=== PATIENT | male | born 1930 | race Caucasian/White ===

== ENCOUNTER → 2018-01-18 | Outpatient (CLI) | payer MEDICARE, BC ==
--- NOTE | 2018-01-18 14:14 | US ---
EXAMINATION TYPE: US extremity nonvasculr ltd RT DATE OF EXAM: 01/18/2018 COMPARISON: NONE CLINICAL HISTORY: Mass right hand R22.31. 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 Recommend vascular consult. IMPRESSION: 1. 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
== END | disposition home or self-care (01) ==
LOC: RADUSWWP 13:53
PROVIDERS: ATTEND Orthopaedic Surgery Hand Surgery
DX: R22.31 Localized swelling, mass and lump, right upper limb (principal)

== ENCOUNTER 2018-02-11 15:55 | Emergency (ER) | payer MEDICARE, BC ==
[2018-02-11 16:07] VITALS: TEMP 97.3
--- NOTE | 2018-02-11 16:50 | ED ---
General Adult HPI - General Chief complaint: Recheck/Abnormal Lab/Rx Stated complaint: High BP Time Seen by Provider: 02/11/18 16:27 Source: patient Mode of arrival: wheelchair Limitations: no limitations - History of Present Illness Initial comments: This 87-year-old white male presents with a complaint of high blood pressure. He states that he had an injection into his lower back through [facility] today. He did receive some mild anesthesia for this. They found that his blood pressure was running around 180/100. When they got home his blood pressure was at a maximum of 204/125. They called her primary physician and were told to come to the emergency department. He otherwise has been asymptomatic. He denies any chest pain or shortness of breath. He does have a history of hypertension. He takes several medications for this but apparently ran out of his hydrochlorothiazide 3-4 days ago. He normally takes 25 mg per day. He denies any other complaints or modifying factors. - Related Data Home Medications Medication Instructions Recorded Confirmed Albuterol Inhaler [Ventolin Hfa 1 inh INHALATION Q6H PRN 07/27/14 07/27/14 Inhaler] Antiarthritic Combination No.2 900 mg PO DAILY 07/27/14 07/27/14 [Glucosamine-Chondroitin] Aspirin 81 mg PO DAILY 07/27/14 07/27/14 Citalopram Hydrobromide 20 mg PO HS 07/27/14 07/27/14 [Citalopram HBr] Doxazosin [Cardura] 4 mg PO BID 07/27/14 07/27/14 Finasteride 1 mg PO DAILY 07/27/14 07/27/14 Hydrochlorothiazide 25 mg PO DAILY 07/27/14 07/27/14 Methyl Salicylate/Menthol 1 each TP Q48H 07/27/14 07/27/14 [Salonpas Patch] Omeprazole [PriLOSEC] 20 mg PO DAILY 07/27/14 07/27/14 Simvastatin 20 mg PO HS 07/27/14 07/27/14 Zolpidem [Ambien] 5 mg PO HS 07/27/14 07/27/14 hydrOXYzine HCL [Atarax] 25 mg PO DAILY 07/27/14 07/27/14 Previous Rx's Medication Instructions Recorded Fluticasone Nasal [place] [Flonase 2 spray EA NOSTRIL DAILY #1 box 06/07/15 Nasal [place]] Warfarin Sodium [Coumadin] 5 mg PO DAILY #30 tab 08/02/14 Hydrochlorothiazide 25 mg PO DAILY #30 tablet 02/11/18 Allergies Allergy/AdvReac Type Severity Reaction Status Date / Time No Known Allergies Allergy Verified 02/11/18 16:07 Review of Systems ROS Statement: Those systems with pertinent positive or pertinent negative responses have been documented in the HPI. ROS Other: All systems not noted in ROS Statement are negative. Past Medical History Past Medical History: GERD/Reflux, Hyperlipidemia, Hypertension, Osteoarthritis (OA), Prostate Disorder Additional Past Medical History / Comment(s): 07/27/14 ADMITTED TO [facility]- SENT BY FOR C/O SOB X 4 DAYS TRACE EDEMA AND PULSE OX 86-89% RHINITIS,ENLARGED PROSTATE, [place] ENMA HEARING AIDS. History of Any Multi-Drug Resistant Organisms: None Reported Past Surgical History: Back Surgery, Hernia Repair, Tonsillectomy Additional Past Surgical History / Comment(s): RT INGUINAL HERNIA REPAIR, ORIF LT ANKLE(PLATE AND SCREWS), COLONOSCOPY/EGD, CYSTOCOPY. Past Anesthesia/Blood Transfusion Reactions: No Reported Reaction Past Psychological History: Depression Smoking Status: Former smoker Past Alcohol Use History: Daily Past Drug Use History: None Reported - Past Family History Father Family Medical History: Coronary Artery Disease (CAD) (Father at age of 82 from coronary artery disease.) Additional Family Medical History / Comment(s): either from stroke or mi can't remember Mother Family Medical History: Cancer, CVA/TIA (Mother from CVA at age of 81) Additional Family Medical History / Comment(s): unsure of what kind Daughter(s) Family Medical History: No Reported History (Patient has 2 daughters no major medical problems.) Son(s) Family Medical History: No Reported History (Patient has 2 sons no major medical problems.) General Exam - General Exam Comments Initial Comments: GENERAL: The patient is well nourished and well hydrated. VITAL SIGNS: Heart rate, blood pressure, respiratory rate reviewed as recorded in nurse's notes. EYES: Pupils are round and reactive. Extraocular movements are intact. No conjunctival / lid redness or swelling. The patient does have a left subconjunctival hemorrhage which is due to a recent ophthalmologic injection. ENT: No external evidence of injury, swelling, or ecchymosis. Airway is patent. Throat is clear. NECK: Nontender. No swelling or evidence of injury. No subcutaneous emphysema. Trachea is midline. No thyroid mass. HEART: Regular rate and rhythm. Good peripheral pulses. LUNGS/CHEST: Breath sounds clear and equal bilaterally. No rales, rhonchi, or wheezes. No ecchymosis, subcutaneous emphysema, or tenderness. ABDOMEN: Abdomen soft without tenderness. No palpable masses or organomegaly. No peritoneal signs. No abdominal wall swelling or ecchymosis. EXTREMITIES: No extremity tenderness. Normal muscle tone and function. No thoracolumbar tenderness. NEUROLOGIC: Sensation is grossly intact. Cranial nerve exam reveals face is symmetrical, tongue is midline, speech is clear. SKIN: No abrasions or ecchymosis is noted. No induration or masses noted. PSYCHIATRIC: Alert and oriented. Appropriate behavior and judgment. Limitations: no limitations Course Vital Signs 02/11/18 16:04 Temperature 97.3 F L Pulse Rate 95 Respiratory 20 Rate Blood Pressure 150/90 O2 Sat by Pulse 94 L Oximetry Medical Decision Making - Medical Decision Making The patient was seen and examined. His blood pressure is significantly improved at this time. It is only slightly increased above normal with a 150 diastolic. The patient is asymptomatic. It is felt that he essentially needs to be back on his hydrochlorothiazide medication. He is agreeable to this plan and leaves in no distress. He is instructed to do a five-day blood pressure recheck and follow up with primary care physician for possible readjustment of his medications. Disposition Clinical Impression: Hypertension Disposition: HOME SELF-CARE Condition: Good Instructions: Hypertension (ED) Prescriptions: Hydrochlorothiazide 25 mg PO DAILY #30 tablet Is patient prescribed a controlled substance at d/c from ED?: No Referrals: Prince Bautista MD [Primary Care Provider] - 02/15/18 Time of Disposition: 16:50
[2018-02-11] MEDS ORDERED: HYDROCHLOROTHIAZIDE 25 MG TAB PO STA (17:04)
[2018-02-11 17:52] VITALS: BP 163/101; PULSE 70; RESP 18
== END 2018-02-11 17:52 | disposition home or self-care (01) ==
LOC: EC 15:55
DX: I10 Essential (primary) hypertension (principal); K21.9 Gastro-esophageal reflux disease without esophagitis; E78.5 Hyperlipidemia, unspecified; F32.9 Major depressive disorder, single episode, unspecified; Z79.82 Long term (current) use of aspirin; Z79.899 Other long term (current) drug therapy; Z87.891 Personal history of nicotine dependence
CPT/HCPCS: 99283

== ENCOUNTER 2018-02-12 08:10 | Inpatient (IN) | payer MEDICARE, BC ==
[2018-02-12] MEDS ORDERED: SODIUM CHLORIDE 0.9% 1,000 ML IV STA (08:20)
[2018-02-12] MEDS ORDERED: LABETALOL SYRINGE 5 MG/ML IVP STA ×2 (08:20→11:07)
--- NOTE | 2018-02-12 09:10 | ED ---
Neuro HPI - General Chief Complaint: Recheck/Abnormal Lab/Rx Stated Complaint: high blood pressure Time Seen by Provider: 02/12/18 08:18 Source: patient, RN notes reviewed, old records reviewed Mode of arrival: wheelchair Limitations: no limitations - History of Present Illness Is the patient presenting with stroke symptoms?: Yes Last Known Well Date: 02/11/18 Last Known Well Time: 20:00 -: days(s) Initial Comments: This is an 87-year-old male to the ER for evaluation. Patient presents today for evaluation of elevated blood pressure and occasional slurred speech. Her speech is been episodic. Patient was seen in our ER department last night for elevated blood pressure and discharged home on new blood pressure medication with no significant improvement in blood pressure. Patient's been off blood pressure medications for quite some time ago he has known history of blood pressure issues. Patient states that he was recently prescribed hydrochlorothiazide which is taking, there was no help and his blood pressure. Patient denies headaches. Family notes that patient did have slurred speech starting last night. Patient denies chest pain or abdominal pain Location: speech, dysarthria History of same: Yes Place: home Severity: mild Quality: intermittant Improves With: none Worsens With: none On Anticoagulants: No Context: gradual onset Associated Symptoms: confusion Treatments Prior to Arrival: none - Related Data Home Medications: Home Medications Medication Instructions Recorded Confirmed Albuterol Inhaler [Ventolin Hfa 1 puff INHALATION RT-Q6H PRN 07/27/14 02/12/18 Inhaler] Antiarthritic Combination No.2 900 mg PO DAILY 07/27/14 02/12/18 [Glucosamine-Chondroitin] Omeprazole [PriLOSEC] 20 mg PO DAILY 07/27/14 02/12/18 hydrOXYzine HCL [Atarax] 25 mg PO DAILY 07/27/14 02/12/18 Meloxicam [Mobic] 7.5 mg PO DAILY 02/11/18 02/12/18 Methocarbamol [Robaxin] 750 mg PO DAILY 02/11/18 02/12/18 Simvastatin [Zocor] 40 mg PO HS 02/11/18 02/12/18 Previous Rx's Medication Instructions Recorded Fluticasone Nasal [place] [Flonase 2 spray EA NOSTRIL DAILY #1 box 08/02/14 Nasal [place]] Hydrochlorothiazide 25 mg PO DAILY #30 tablet 02/11/18 Allergies/Adverse Reactions: Allergies Allergy/AdvReac Type Severity Reaction Status Date / Time No Known Allergies Allergy Verified 02/12/18 08:41 Review of Systems ROS Statement: Those systems with pertinent positive or pertinent negative responses have been documented in the HPI. ROS Other: All systems not noted in ROS Statement are negative. General Exam Limitations: no limitations General appearance: alert, in no apparent distress Head exam: Present: atraumatic, normocephalic, normal inspection Eye exam: Present: normal appearance, PERRL, EOMI. Absent: scleral icterus, conjunctival injection, periorbital swelling ENT exam: Present: normal exam, mucous membranes moist Neck exam: Present: normal inspection. Absent: tenderness, meningismus, lymphadenopathy Respiratory exam: Present: normal lung sounds bilaterally. Absent: respiratory distress, wheezes, rales, rhonchi, stridor Cardiovascular Exam: Present: regular rate, normal rhythm, normal heart sounds. Absent: systolic murmur, diastolic murmur, rubs, gallop, clicks GI/Abdominal exam: Present: soft, normal bowel sounds. Absent: distended, tenderness, guarding, rebound, rigid Extremities exam: Present: normal inspection, full ROM, normal capillary refill. Absent: tenderness, pedal edema, joint swelling, calf tenderness Back exam: Present: normal inspection Neurological exam: Present: alert, oriented X3, CN II-XII intact Psychiatric exam: Present: normal affect, normal mood Skin exam: Present: warm, dry, intact, normal color. Absent: rash Stroke MDM - Lab Data Result diagrams: 02/12/18 08:59 02/12/18 08:59 Lab Results 02/12/18 02/12/18 02/12/18 Range/Units 08:59 08:59 08:59 WBC 8.2 (3.8-10.6) k/uL RBC 4.82 (4.30-5.90) m/uL Hgb 14.4 (13.0-17.5) gm/dL Hct 43.2 (39.0-53.0) % MCV 89.6 (80.0-100.0) fL MCH 29.8 (25.0-35.0) pg MCHC 33.2 (31.0-37.0) g/dL RDW 13.4 (11.5-15.5) % Plt Count 195 (150-450) k/uL Neutrophils % 77 % Lymphocytes % 15 % Monocytes % 6 % Eosinophils % 1 % Basophils % 0 % Neutrophils # 6.3 (1.3-7.7) k/uL Lymphocytes # 1.2 (1.0-4.8) k/uL Monocytes # 0.5 (0-1.0) k/uL Eosinophils # 0.1 (0-0.7) k/uL Basophils # 0.0 (0-0.2) k/uL Sodium 140 (137-145) mmol/L Potassium 3.9 (3.5-5.1) mmol/L Chloride 107 (98-107) mmol/L Carbon Dioxide 25 (22-30) mmol/L Anion Gap 8 mmol/L BUN 23 H (9-20) mg/dL Creatinine 0.86 (0.66-1.25) mg/dL Est GFR (CKD-EPI)AfAm >90 (>60 ml/min/1.73 sqM) Est GFR (CKD-EPI)NonAf 79 (>60 ml/min/1.73 sqM) Glucose 115 H (74-99) mg/dL Calcium 9.3 (8.4-10.2) mg/dL Phosphorus 3.5 (2.5-4.5) mg/dL Magnesium 1.8 (1.6-2.3) mg/dL Total Bilirubin 0.8 (0.2-1.3) mg/dL AST 19 (17-59) U/L ALT 21 (21-72) U/L Alkaline Phosphatase 56 (38-126) U/L Total Creatine Kinase 67 (55-170) U/L CK-MB (CK-2) 1.5 (0.0-2.4) ng/mL CK-MB (CK-2) Rel Index 2.2 Troponin I <0.012 (0.000-0.034) ng/mL Total Protein 6.2 L (6.3-8.2) g/dL Albumin 3.5 (3.5-5.0) g/dL - NIH Stroke Scale 1a. Level of Consciousness: (0) alert 1b. LOC Questions: (0) answers correctly 1c. LOC Commands: (0) performs tasks correctly 2. Best Gaze: (0) normal 3. Visual: (0) no visual loss 4. Facial Palsy: (0) normal symmetrical movement 5a. Motor Arm Left: (0) no drift 5b. Motor Arm Right: (0) no drift 6a. Motor Leg Left: (0) no drift 6b. Motor Leg Right: (0) no drift 7. Limb Ataxia: (0) absent 8. Sensory: (0) normal 9. Best Language: (1) mild/moderate aphasia 10. Dysarthria: (0) normal 11. Extinction/Inattention: (0) no abnormality - Thrombolytic Inclusion/Exclusion Thrombolytic Exclusion Criteria: Symptom Onset > 3 Hours Thrombolytic Contraindications: Rapidly Improving s/s - Medical Decision Making 87 male the ER for evaluation of neurological insult, significantly elevated blood pressure. Patient will be admitted, patient with CT angiogram had for further evaluation and management, patient was started on aspirin. Patient given blood pressure control. Patient is not a TPA candidate secondary to onset of symptoms - Radiology Data Radiology results: report reviewed (EKG shows sinus rhythm rate of 63, IA 182, QRS 126, QTc 478), image reviewed Past Medical History Past Medical History: GERD/Reflux, Hyperlipidemia, Hypertension, Osteoarthritis (OA), Prostate Disorder Additional Past Medical History / Comment(s): 07/27/14 ADMITTED TO [facility]- SENT BY FOR C/O SOB X 4 DAYS TRACE EDEMA AND PULSE OX 86-89% RHINITIS,ENLARGED PROSTATE, [place] ENMA HEARING AIDS. History of Any Multi-Drug Resistant Organisms: None Reported Past Surgical History: Back Surgery, Hernia Repair, Tonsillectomy Additional Past Surgical History / Comment(s): RT INGUINAL HERNIA REPAIR, ORIF LT ANKLE(PLATE AND SCREWS), COLONOSCOPY/EGD, CYSTOCOPY. Past Anesthesia/Blood Transfusion Reactions: No Reported Reaction Past Psychological History: Depression Smoking Status: Former smoker Past Alcohol Use History: Daily Past Drug Use History: None Reported - Past Family History Father Family Medical History: Coronary Artery Disease (CAD) (Father at age of 82 from coronary artery disease.) Additional Family Medical History / Comment(s): either from stroke or mi can't remember Mother Family Medical History: Cancer, CVA/TIA (Mother from CVA at age of 81) Additional Family Medical History / Comment(s): unsure of what kind Daughter(s) Family Medical History: No Reported History (Patient has 2 daughters no major medical problems.) Son(s) Family Medical History: No Reported History (Patient has 2 sons no major medical problems.) Course Vital Signs 02/12/18 02/12/18 02/12/18 08:11 08:57 09:26 Temperature 97.6 F Pulse Rate 68 64 62 Respiratory 16 18 18 Rate Blood Pressure 201/102 188/111 196/112 O2 Sat by Pulse 95 96 96 Oximetry 02/12/18 02/12/18 10:26 10:31 Temperature Pulse Rate 54 L Respiratory 24 Rate Blood Pressure 181/111 188/98 O2 Sat by Pulse 98 Oximetry - Reevaluation(s) Reevaluation #1: 02/12/18 10:58 Medical record and prior ER visits are reviewed Reevaluation #2: 02/12/18 10:58 Patient has recurrent episodes of slurred speech Reevaluation #3: 02/12/18 10:59 Blood pressure remains elevated despite blood pressure control Reevaluation #4: 02/12/18 10:[address] Ferrell who is aware and agreeable for admission Critical Care Time Critical Care Time: Yes Total Critical Care Time: 31 Disposition Clinical Impression: CVA (cerebral vascular accident), TIA (transient ischemic attack), Hypertensive urgency Disposition: ADMITTED IP TO THIS HOSP Condition: Fair Is patient prescribed a controlled substance at d/c from ED?: No Referrals: Prince Bautista MD [Primary Care Provider] - 1-2 days
[2018-02-12] MEDS ORDERED: hydrALAZINE HCL 20 MG/ML 1 ML VIAL IVP STA (09:20)
--- NOTE | 2018-02-12 09:48 | CT ---
EXAMINATION TYPE: CT brain wo con DATE OF EXAM: 02/12/2018 COMPARISON: None HISTORY: 87-year-old male pain, High blood pressure TECHNIQUE: Examination was done in axial plane without intravenous contrast. Coronal and sagittal r econstructions performed. CT DLP: 1074.4 mGycm Automated exposure control for dose reduction was used. FINDINGS: There is no evidence of acute intracranial hemorrhage, acute ischemic changes, mass, mass-effect, or extra-axial fluid collection. There is no effacement of cerebral sulci or basal subarachnoid cister ns. There is no hydrocephalus. There is no midline shift. Vicente-white matter distinction is preserv ed. 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 MRA can better assess to exclude a ny underlying focal saccular aneurysms. Mild generalized supratentorial volume loss Moderate patchy white matter hypodensities in both cerebral hemispheres. Lobulated polyps or mucosal retention cysts within the bilateral maxillary sinuses with mild mucosal thickening throughout the ethmoid air cells and rightward nasal septal deviation. Mastoid air cells w ell pneumatized. The orbits and globes appear intact. IMPRESSION: 1. Mild atrophy and moderate patchy changes of chronic small vessel ischemic disease. No acute intrac ranial abnormality seen. 2. 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 MRA ca n better assess the extent of dolichoectasia and exclude any underlying focal saccular aneurysms on t he osage of [place]. 3. 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
[2018-02-12 09:49] LABS: Basophils % (A) 0 %; Eosinophils # (A) 0.1 k/uL (0-0.7); Eosinophils % (A) 1 %; HCT 43.2 % (39.0-53.0); HGB 14.4 gm/dL (13.0-17.5); Lymphocytes # (A) 1.2 k/uL (1.0-4.8); Lymphocytes % (A) 15 %; MCH 29.8 pg (25.0-35.0); MCHC 33.2 g/dL (31.0-37.0); MCV 89.6 fL (80.0-100.0); Mean Platelet Volume 7.7; Monocytes # (A) 0.5 k/uL (0-1.0); Monocytes % (A) 6 %; Neutrophils # (A) 6.3 k/uL (1.3-7.7); Neutrophils % (A) 77 %; Platelet Count 195 k/uL (150-450); RBC 4.82 m/uL (4.30-5.90); RDW 13.4 % (11.5-15.5); WBC 8.2 k/uL (3.8-10.6)
[2018-02-12 10:02] LABS: ALT 21 U/L (21-72); AST 19 U/L (17-59); Albumin 3.5 g/dL (3.5-5.0); Alkaline Phosphatase 56 U/L (38-126); Anion Gap 8 mmol/L; Blood Urea Nitrogen 23 mg/dL (9-20); Calcium 9.3 mg/dL (8.4-10.2); Carbon Dioxide 25 mmol/L (22-30); Chloride 107 mmol/L (98-107); Glucose 115 mg/dL (74-99); Magnesium 1.8 mg/dL (1.6-2.3); Phosphorus 3.5 mg/dL (2.5-4.5); Potassium 3.9 mmol/L (3.5-5.1); Sodium 140 mmol/L (137-145); Total Bilirubin 0.8 mg/dL (0.2-1.3); Total Protein 6.2 g/dL (6.3-8.2)
[2018-02-12 10:12] LABS: Creatine Kinase 67 U/L (55-170)
[2018-02-12 10:25] LABS: Creatine Kinase MB 1.5 ng/mL (0.0-2.4); Troponin I <0.012 ng/mL (0.000-0.034)
[2018-02-12] MEDS ORDERED: ENALAPRILAT 1.25 MG/ML 1 ML VIAL IVP STA (10:26)
[2018-02-12] MEDS ORDERED: ASPIRIN 325 MG TAB PO STA (10:54)
[2018-02-12] MEDS ORDERED: hydrALAZINE HCL 20 MG/ML 1 ML VIAL IVP PRN (10:56)
--- NOTE | 2018-02-12 12:19 | ECHOF ---
Referral Reason:Thrombus MEASUREMENTS -------- HEIGHT: 172.7 cm WEIGHT: 113.4 kg BP: 164/110 RVIDd: 3.4 cm (< 3.3) IVSd: 1.5 cm (0.6 - 1.1) LVIDd: 3.7 cm (3.9 - 5.3) LVPWd: 1.4 cm (0.6 - 1.1) IVSs: 1.9 cm LVIDs: 2.7 cm LVPWs: 1.8 cm LA Diam: 3.6 cm (2.7 - 3.8) LAESV Index (A-L): 21.96 ml/m Ao Diam: 4.4 cm (2.0 - 3.7) AV Cusp: 1.9 cm (1.5 - 2.6) MV EXCURSION: 13.644 mm (> 18.000) MV EF SLOPE: 51 mm/s (70 - 150) EPSS: 0.6 cm MV E Mello: 1.19 m/s MV DecT: 365 ms MV A Mello: 1.41 m/s MV E/A Ratio: 0.85 AR PHT: 930 ms RAP: 5.00 mmHg RVSP: 38.37 mmHg FINDINGS -------- Sinus rhythm with extra systolic beats. This was a technically adequate study. The left ventricular size is normal. There is moderate concentric left ventricular hypertrophy. O verall left ventricular systolic function is normal with, an EF between 60 - 65 %. The right ventricle is mildly enlarged. Normal LA size by volume 22+/-6 ml/m2. The right atrium is normal in size. There is mild aortic valve sclerosis. There is mild aortic regurgitation. Mild mitral regurgitation is present. Mild tricuspid regurgitation present. There is mild pulmonary hypertension. The right ventricular systolic pressure, as measured by Doppler, is 38.37mmHg. Moderate pulmonic regurgitation. 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 Normal inferior vena cava with normal inspiratory collapse consistent with estimated right atrial pre ssure of 5 mmHg. The inferior vena cava is mildly dilated. There is no pericardial effusion. CONCLUSIONS -------- 1. Sinus rhythm with extra systolic beats. 2. This was a technically adequate study. 3. The left ventricular size is normal. 4. There is moderate concentric left ventricular hypertrophy. 5. Overall left ventricular systolic function is normal with, an EF between 60 - 65 %. 6. The right ventricle is mildly enlarged. 7. Normal LA size by volume 22+/-6 ml/m2. 8. The right atrium is normal in size. 9. There is mild aortic valve sclerosis. 10. There is mild aortic regurgitation. 11. Mild mitral regurgitation is present. 12. Mild tricuspid regurgitation present. 13. There is mild pulmonary hypertension. 14. The right ventricular systolic pressure, as measured by Doppler, is 38.37mmHg. 15. Moderate pulmonic regurgitation. 16. 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 17. Normal inferior vena cava with normal inspiratory collapse consistent with estimated right atrial pressure of 5 mmHg. 18. The inferior vena cava is mildly dilated. 19. There is no pericardial effusion. SENIOR MECHANICAL PROJECT MANAGER: Ese Borden RDCS
[2018-02-12 12:23] LABS: Appearance,Urine Clear (Clear); Bilirubin,Urine Negative (Negative); Blood,Urine Trace (Negative); Color,Urine Colorless; Glucose,Urine (UA) Negative (Negative); Ketones,Urine Negative (Negative); Leukocyte Esterase,Urine Negative (Negative); Nitrite,Urine Negative (Negative); PH, Urine 7.5 (5.0-8.0); Protein,Urine Negative (Negative); RBC,Urine 3 /hpf (0-5); Specific Gravity,Urine 1.005 (1.001-1.035); Urobilinogen,Urine <2.0 mg/dL (<2.0)
[2018-02-12] MEDS: SODIUM CHLORIDE 0.9% 1,000 ML IV SCH ×2 (13:45→21:58)
[2018-02-12] MEDS ORDERED: ALBUTEROL NEBULIZED 2.5 MG/3 ML INHALATION PRN (14:52)
--- NOTE | 2018-02-12 15:06 | P.HPIM ---
History of Present Illness H&P Date: 02/12/18 Chief Complaint: Recurrent dysarthria Mr. Hansen is an 87-year-old male one of Dr. Bautista with a previous medical history significant for hypertension and hypertensive cardiovascular disease, hyperlipidemia, pulmonary emboli in 2015 obesity, gastroesophageal reflux disease, benign prostatic hypertrophy, major depressive disorder admitted to the emergency room secondary to dysarthria. Patient's dysarthria has been recurrent over the past 24 hours, and started last night patient this is accompanied by weakness on the right lower extremity. No double vision, no upper motor extremity weakness. He would have clarity in his speech intermittently and it would come back again with jumbled words. No previous stroke or heart attack in the past. No history of seizures DVT PE, no diabetes mellitus no A. fib noted CHF CAD in the past. He had been off his hydrochlorothiazide for several months now, and was discontinued by mistake as the patient failed to refill this medication. He was last seen by Dr. Bautista approximate 4 months ago, no new medications from anybody else. He had been going to epidural steroid injections for his lumbar back area, and apparently yesterday's blood pressures been running between 158-193 systolic blood pressure. Blood pressure last night was for 204/125 when the event happened.. Imaging studies in the emergency room, EKG sinus rhythm heart rate 63, LVH with QRS widening, echocardiogram sinus rhythm with PVCs EF 6065%, right ventricle mildly enlarged, mild aortic sclerosis mild AR mild MR and mild TR and mild pulmonic hypertension right ventricular systolic pressure 38 mild TR no pericardial effusion. 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 Patient was hypertensive with systolic blood pressure of 190-200 systolic, patient was started on aspirin, as well as labetalol and hydralazine was given along with enalapril. consult was made with neurology Dr. Elmore Review of Systems Constitutional: Reports as per HPI, Denies anorexia, Denies chills, Denies chronic headaches, Denies chronic pain, Denies daytime sleepiness, Denies fatigue, Denies fever, Denies lethargy, Denies malaise, Denies night sweats, Denies poor appetite, Denies sweats, Denies weakness, Denies weight gain, Denies weight loss Ears, nose, mouth and throat: Reports as per HPI, Denies ant. neck pain, Denies bleeding gums, Denies dental pain, Denies dysphagia, Denies epistaxis, Denies headache, Denies hoarseness, Denies mouth pain, Denies nasal congestion, Denies nasal discharge, Denies neck fullness/pressure, Denies neck lump, Denies nose pain, Denies odynophagia, Denies post-nasal drip, Denies sinus pain, Denies sinus pressure, Denies swelling in mouth, Denies swelling in throat, Denies sore throat, Denies vertigo, Denies voice changes Cardiovascular: Reports as per HPI, Denies chest pain, Denies claudication, Denies decreased exercise tolerance, Denies dyspnea on exertion, Denies edema, Denies high blood pressure, Denies irregular heart beat, Denies leg edema, Denies lightheadedness, Denies orthopnea, Denies palpitations, Denies paroxysmal nocturnal dyspnea, Denies phlebitis, Denies rapid heart beat, Denies shortness of breath, Denies syncope Respiratory: Reports as per HPI Gastrointestinal: Reports as per HPI, Denies abdominal pain, Denies belching, Denies bloating, Denies BRBPR, Denies change in bowel habits, Denies coffee ground emesis, Denies constipation, Denies diarrhea, Denies dyspepsia, Denies early satiety, Denies excessive gas, Denies heartburn, Denies hematemesis, Denies hematochezia, Denies indigestion, Denies jaundice, Denies lactose intolerance, Denies loss of appetite, Denies melena, Denies nausea, Denies vomiting Genitourinary: Reports as per HPI Musculoskeletal: Reports as per HPI, Reports low back pain, Reports muscle weakness Integumentary: Reports as per HPI, Denies acne, Denies boils, Denies brittle nails, Denies change in hair/nails, Denies color changes, Denies darkening of skin, Denies depigmentation, Denies dryness, Denies foot/leg ulcers, Denies growths, Denies hirsutism, Denies lesions, Denies onychomycosis, Denies pruritus , Denies rash, Denies sores, Denies striae, Denies unusual bruising, Denies wounds Neurological: Reports as per HPI, Denies aphasia, Denies ataxia, Denies balance difficulties, Denies burning pain, Denies change in mentation, Denies change in smell/taste, Denies change in speech, Denies confusion, Denies convulsions, Denies double vision, Denies gait dysfunction, Denies head injury, Denies headaches, Denies hearing difficulties, Denies lack of coordination, Denies loss of vision, Denies memory loss, Denies migraines, Denies motor disturbance, Denies numbness, Denies paralysis, Denies paresthesias, Denies seizures, Denies sensory deficit, Denies spasticity, Denies syncope, Denies tic, Denies tingling , Denies transient paralysis, Denies tremors, Denies vertigo, Denies weakness, Denies visual changes Psychiatric: Reports as per HPI Endocrine: Reports as per HPI, Denies cold intolerance, Denies deepening of the voice, Denies excessive sweating, Denies excessive thirst, Denies fatigue, Denies flushing, Denies heat intolerance, Denies high blood sugars, Denies increase in ring/shoe/hat size, Denies low blood sugars, Denies nocturia, Denies palpitations, Denies polydipsia, Denies polyphagia, Denies polyuria, Denies proptosis, Denies recent glucocorticoid use, Denies thyroid mass, Denies weight change Hematologic/Lymphatic: Reports as per HPI Allergic/Immunologic: Reports as per HPI Past Medical History Past Medical History: GERD/Reflux, Hyperlipidemia, Hypertension, Osteoarthritis (OA), Prostate Disorder Additional Past Medical History / Comment(s): 07/27/14 ADMITTED TO [facility]- SENT BY FOR C/O SOB X 4 DAYS TRACE EDEMA AND PULSE OX 86-89% RHINITIS,ENLARGED PROSTATE, MAKAH ENMA HEARING AIDS. History of Any Multi-Drug Resistant Organisms: None Reported Past Surgical History: Back Surgery, Hernia Repair, Tonsillectomy Additional Past Surgical History / Comment(s): RT INGUINAL HERNIA REPAIR, ORIF LT ANKLE(PLATE AND SCREWS), COLONOSCOPY/EGD, CYSTOCOPY. Past Anesthesia/Blood Transfusion Reactions: No Reported Reaction Past Psychological History: Depression Smoking Status: Former smoker Past Alcohol Use History: Daily Past Drug Use History: None Reported - Past Family History Father Family Medical History: Coronary Artery Disease (CAD) (Father at age of 82 from coronary artery disease.) Additional Family Medical History / Comment(s): either from stroke or mi can't remember Mother Family Medical History: Cancer, CVA/TIA (Mother from CVA at age of 81) Additional Family Medical History / Comment(s): unsure of what kind Daughter(s) Family Medical History: No Reported History (Patient has 2 daughters no major medical problems.) Son(s) Family Medical History: No Reported History (Patient has 2 sons no major medical problems.) Medications and Allergies Home Medications Medication Instructions Recorded Confirmed Type Albuterol Inhaler [Ventolin Hfa 1 puff INHALATION RT-Q6H PRN 07/27/14 02/12/18 History Inhaler] Antiarthritic Combination No.2 900 mg PO DAILY 07/27/14 02/12/18 History [Glucosamine-Chondroitin] Omeprazole [PriLOSEC] 20 mg PO DAILY 07/27/14 02/12/18 History hydrOXYzine HCL [Atarax] 25 mg PO DAILY 07/27/14 02/12/18 History Fluticasone Nasal [place] [Flonase 2 spray EA NOSTRIL DAILY #1 box 08/02/14 Rx Nasal [place]] Hydrochlorothiazide 25 mg PO DAILY #30 tablet 02/11/18 02/12/18 Rx Meloxicam [Mobic] 7.5 mg PO DAILY 02/11/18 02/12/18 History Methocarbamol [Robaxin] 750 mg PO DAILY 02/11/18 02/12/18 History Simvastatin [Zocor] 40 mg PO HS 02/11/18 02/12/18 History Allergies Allergy/AdvReac Type Severity Reaction Status Date / Time No Known Allergies Allergy Verified 02/12/18 08:41 Physical Exam Vitals: Vital Signs Temp Pulse Pulse Resp BP BP Pulse Ox 02/12/18 13:52 96.9 F L 82 18 168/79 96 02/12/18 12:54 75 20 167/92 97 02/12/18 12:38 159/94 02/12/18 11:54 63 18 175/105 02/12/18 11:48 70 20 173/111 96 02/12/18 11:09 63 18 188/110 98 02/12/18 10:54 61 18 188/98 02/12/18 10:31 188/98 02/12/18 10:26 54 L 24 181/111 98 02/12/18 09:26 62 18 196/112 96 02/12/18 08:57 64 18 188/111 96 02/12/18 08:11 97.6 F 68 16 201/102 95 Intake and Output 02/11/18 02/12/18 02/12/18 22:59 06:59 14:59 Other: Weight 113.398 kg - Constitutional General appearance: average body habitus, no acute distress, obese - EENT Eyes: anicteric sclerae, EOMI, PERRLA, dentition normal, normal appearance ENT: hard of hearing, NA/AT, normal oropharynx - Neck Neck: normal ROM - Respiratory Respiratory: bilateral: CTA, negative: diminished, dullness, rales, rhonchi, wheezing - Cardiovascular Rhythm: regular Heart sounds: normal: S1, S2 Abnormal Heart Sounds: no systolic murmur, no diastolic murmur, no rub, no S3 Gallop, no S4 Gallop, no click, no other - Gastrointestinal General gastrointestinal: normal bowel sounds, soft - Integumentary Integumentary: decreased turgor, normal - Neurologic Neurologic: CNII-XII intact - Musculoskeletal Musculoskeletal: gait normal, strength equal bilaterally - Psychiatric Psychiatric: A&O x's 3, appropriate affect, intact judgment & insight Results CBC & Chem 7: 02/12/18 08:59 02/12/18 08:59 Labs: Abnormal Lab Results - Last 24 Hours (Table) 02/12/18 02/12/18 Range/Units 08:59 11:10 BUN 23 H (9-20) mg/dL Glucose 115 H (74-99) mg/dL Total Protein 6.2 L (6.3-8.2) g/dL Urine Blood Trace H (Negative) Laboratory Results WBC 8.2 k/uL (3.8-10.6) 02/12/18 08:59 RBC 4.82 m/uL (4.30-5.90) 02/12/18 08:59 Hgb 14.4 gm/dL (13.0-17.5) 02/12/18 08:59 Hct 43.2 % (39.0-53.0) 02/12/18 08:59 MCV 89.6 fL (80.0-100.0) 02/12/18 08:59 MCH 29.8 pg (25.0-35.0) 02/12/18 08:59 MCHC 33.2 g/dL (31.0-37.0) 02/12/18 08:59 RDW 13.4 % (11.5-15.5) 02/12/18 08:59 Plt Count 195 k/uL (150-450) 02/12/18 08:59 Neutrophils % 77 % 02/12/18 08:59 Lymphocytes % 15 % 02/12/18 08:59 Monocytes % 6 % 02/12/18 08:59 Eosinophils % 1 % 02/12/18 08:59 Basophils % 0 % 02/12/18 08:59 Neutrophils # 6.3 k/uL (1.3-7.7) 02/12/18 08:59 Lymphocytes # 1.2 k/uL (1.0-4.8) 02/12/18 08:59 Monocytes # 0.5 k/uL (0-1.0) 02/12/18 08:59 Eosinophils # 0.1 k/uL (0-0.7) 02/12/18 08:59 Basophils # 0.0 k/uL (0-0.2) 02/12/18 08:59 Sodium 140 mmol/L (137-145) 02/12/18 08:59 Potassium 3.9 mmol/L (3.5-5.1) 02/12/18 08:59 Chloride 107 mmol/L (98-107) 02/12/18 08:59 Carbon Dioxide 25 mmol/L (22-30) 02/12/18 08:59 Anion Gap 8 mmol/L 02/12/18 08:59 BUN 23 mg/dL (9-20) H 02/12/18 08:59 Creatinine 0.86 mg/dL (0.66-1.25) 02/12/18 08:59 Est GFR (CKD-EPI)AfAm >90 (>60 ml/min/1.73 sqM) 02/12/18 08:59 Est GFR (CKD-EPI)NonAf 79 (>60 ml/min/1.73 sqM) 02/12/18 08:59 Glucose 115 mg/dL (74-99) H 02/12/18 08:59 Calcium 9.3 mg/dL (8.4-10.2) 02/12/18 08:59 Phosphorus 3.5 mg/dL (2.5-4.5) 02/12/18 08:59 Magnesium 1.8 mg/dL (1.6-2.3) 02/12/18 08:59 Total Bilirubin 0.8 mg/dL (0.2-1.3) 02/12/18 08:59 AST 19 U/L (17-59) 02/12/18 08:59 ALT 21 U/L (21-72) 02/12/18 08:59 Alkaline Phosphatase 56 U/L (38-126) 02/12/18 08:59 Total Creatine Kinase 67 U/L (55-170) 02/12/18 08:59 CK-MB (CK-2) 1.5 ng/mL (0.0-2.4) 02/12/18 08:59 CK-MB (CK-2) Rel Index 2.2 02/12/18 08:59 Troponin I <0.012 ng/mL (0.000-0.034) 02/12/18 08:59 Total Protein 6.2 g/dL (6.3-8.2) L 02/12/18 08:59 Albumin 3.5 g/dL (3.5-5.0) 02/12/18 08:59 Urine Color Colorless 02/12/18 11:10 Urine Appearance Clear (Clear) 02/12/18 11:10 Urine pH 7.5 (5.0-8.0) 02/12/18 11:10 Ur Specific [place] 1.005 (1.001-1.035) 02/12/18 11:10 Urine Protein Negative (Negative) 02/12/18 11:10 Urine Glucose (UA) Negative (Negative) 02/12/18 11:10 Urine Ketones Negative (Negative) 02/12/18 11:10 Urine Blood Trace (Negative) H 02/12/18 11:10 Urine Nitrite Negative (Negative) 02/12/18 11:10 Urine Bilirubin Negative (Negative) 02/12/18 11:10 Urine Urobilinogen <2.0 mg/dL (<2.0) 02/12/18 11:10 Ur Leukocyte Esterase Negative (Negative) 02/12/18 11:10 Urine RBC 3 /hpf (0-5) 02/12/18 11:10 Urine WBC <1 /hpf (0-5) 02/12/18 11:10 Assessment and Plan Plan: 1. TIA with uncontrolled blood pressure prior to admission, hypertensive emergency on initial presentation, CVA is under differential secondary to crescendo presentation, patient would be on aspirin 325 mg daily, CTA of the neck to be done, patient would undergo MRI with MRA of the brain and consults with Dr. Elmore neurology. This will be his first episode of neurologic event , prior history of PE in the past, homocystine level to be done, echocardiogram , physical therapy occupational therapy are all ordered 2. Hypertensive emergency, patient will be started on lisinopril 10 mg twice a day and would be titrated with a goal blood pressure of between 140-160 over the next 1-2 days, then thereafter maintain normotensive blood pressure between 120-140 to avoid significant lowering of Brain perfusion at this time we will use enalapril every 6 when necessary when necessary for 160 or more, hydralazine 10 every 4 when necessary for blood pressure over 190 3 Prior history 2015 Significant bilateral pulmonary emboli with with extensive involvement of the upper and lower branches of both pulmonary arteries and left of the CT findings suggestive of right ventricular strain, 4 Hyperlipidemia we will continue the patient on [id number] orally at bedtime daily. Lipid panel to be done 5. Valvular heart disease with mild pulmonary hypertension at that particular systolic pressure 38, mild MR and mild TR and moderate MI right ventricle mildly enlarged EF 60-65% 5. Benign prostatic hypertrophy, currently on Cardura 2 milligram orally twice every day as well as finasteride 5 mg orally once every day. 5. GERD continue omeprazole 20 mg orally once every day. 6. Lumbar disc disease with recent epidural steroid injection by orthopedic associates yesterday, on Robaxin, patient is not on any narcotics prior to admission 7. Left eye subconjunctival hemorrhage, with recent injection to the eye by his guest service supervisor, diagnosis is not yet presented to the patient 7. Insomnia. Ambien 5 mg orally bedtime. 8. Reactive airway disease currently asymptomatic, on Flonase daily, and albuterol when necessary 9. Chronic maxillary sinusitis with mucous recent retention cyst, no current antibiotic is needed 10. 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
[2018-02-12 20:53] VITALS: RESP 18
[2018-02-12] MEDS: LISINOPRIL 10 MG TAB PO SCH (21:58)
[2018-02-12] MEDS: ATORVASTATIN 20 MG TAB PO SCH (21:58)
[2018-02-13] MEDS: SODIUM CHLORIDE 0.9% 1,000 ML IV SCH (06:32)
[2018-02-13] MEDS: PANTOPRAZOLE 40 MG TABLET PO SCH (07:02)
[2018-02-13 08:14] LABS: Basophils % (A) 0 %; Eosinophils # (A) 0.1 k/uL (0-0.7); Eosinophils % (A) 1 %; HCT 48.7 % (39.0-53.0); Lymphocytes # (A) 1.6 k/uL (1.0-4.8); Lymphocytes % (A) 16 %; MCH 29.6 pg (25.0-35.0); MCHC 32.9 g/dL (31.0-37.0); MCV 89.9 fL (80.0-100.0); Mean Platelet Volume 7.8; Monocytes # (A) 0.6 k/uL (0-1.0); Monocytes % (A) 6 %; Neutrophils # (A) 7.3 k/uL (1.3-7.7); Neutrophils % (A) 75 %; Platelet Count 182 k/uL (150-450); RBC 5.42 m/uL (4.30-5.90); RDW 13.6 % (11.5-15.5); WBC 9.7 k/uL (3.8-10.6)
[2018-02-13 08:32] LABS: Sodium 141 mmol/L (137-145)
[2018-02-13 08:33] LABS: ALT 22 U/L (21-72); AST 22 U/L (17-59); Alkaline Phosphatase 56 U/L (38-126); Anion Gap 9 mmol/L; Blood Urea Nitrogen 22 mg/dL (9-20); Calcium 9.5 mg/dL (8.4-10.2); Carbon Dioxide 25 mmol/L (22-30); Chloride 107 mmol/L (98-107); Cholesterol 168 mg/dL (<200); Glucose 127 mg/dL (74-99); HDL Cholesterol 68 mg/dL (40-60); LDL Cholesterol,Calculated 82 mg/dL (0-99); Potassium 4.2 mmol/L (3.5-5.1); Triglycerides 91 mg/dL (<150)
[2018-02-13] MEDS ORDERED: ASPIRIN 325 MG TAB PO SCH (09:00)
[2018-02-13] MEDS: LISINOPRIL 10 MG TAB PO SCH (09:52)
[2018-02-13] MEDS: ASPIRIN 81 MG PO SCH (09:52)
--- NOTE | 2018-02-13 10:14 | CT ---
EXAMINATION TYPE: CT angio head neck DATE OF EXAM: 02/13/2018 HISTORY: Left side facial and ear pain. COMPARISON: CT brain dated 02/12/2018 CT DLP: 305 mGycm. Automated Exposure Control for Dose Reduction was Utilized. TECHNIQUE: CTA scan of the neck is performed with IV Contrast, patient injected with 100ml mL of Iso brennen 300, axial images are obtained, coronal and sagittal reformatted images are reviewed. Three-D rec onstructed images are created on an independent workstation and reviewed. FINDINGS: Carotid/Vascular Structures: There is aneurysmal dilatation of the ascending thoracic aorta measuring approximately 4.2 cm. The main pulmonary artery is upper limits of normal measuring 2.8 cm. There is a conventional three-vessel branch pattern of the aortic arch. Evaluation of the common carotid arteries is slightly limited by patient motion. Minimal nonhemodynam ically significant calcific atheromatous plaquing is seen on the right. Within the carotid bulbs on t he left there is approximately 50% stenosis in a short segment measuring up approximately 6 mm due to calcific and noncalcific atheromatous plaquing. Within the cervical portion of the left internal car otid artery there is only minimal nonhemodynamically significant atheromatous plaquing. Within the ri ght carotid bulb there is less than 50% stenosis from calcific atheromatous plaquing. No hemodynamica lly significant stenosis is seen within the right internal carotid artery in its cervical portions. The vertebral arteries appear patent with right-sided dominance although there is significant atheros clerosis grossly of approximately 70% within the right and 80% within the left in their intracranial portions of the level of the occipital condyles and colitis. 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 This also involves the right vertebral artery. There is also prominence in size of the cavernous and supraclinoid portions of the internal carotid arteries measuring 6 mm on the right and 5 mm on the left. The horizontal portions, cavernous portions, and supraclinoid portions of the internal carotid arteri es demonstrate none hemodynamically significant calcific atherosclerosis. No sizable aneurysmal outpo uching, occlusion or dissection is seen. The left posterior communicating artery is either diminutive or absent. [place] is therefore not definitively intact. Other: Although the examination of the intracranial structures is slightly limited in this arterial p hase no focal encephalomalacia or gross evidence of acute CVA is seen. Ventricular prominence and per ipheral sulcal prominence are again noted. This is likely on the basis of age-related cerebral atroph y. There is also redemonstration of polypoid mucosal thickening in the maxillary sinuses and mild muc osal thickening of the sphenoid and ethmoid sinuses. 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 There is also prominence in size of the cavernous and supraclinoid portions of th e internal carotid arteries bilaterally. No aneurysmal outpouching or dissection of the intracranial vasculature or vasculature of the head or neck. Clinically there may be cranial nerve dysfunction.
--- NOTE | 2018-02-13 10:15 | CONS ---
CONSULTATION DATE OF CONSULTATION: 02/12/2018 CHIEF COMPLAINT: Transient ischemic attack. HISTORY OF PRESENT ILLNESS: Mr. Hansen is a pleasant 87-year-old, male, who is being evaluated today on 02/12/2018 by the Neurology Service per the request of Dr. Mccoy for a transient ischemic attack. The patient was brought into [facility] emergency room after he suffered a sudden onset of slurred speech. The patient checked his blood pressure at home and it was significantly elevated. He contacted his primary care physician, Dr. Bautista's office who advised him to go to the emergency room. His daughter noticed that his speech was quite slurred. The patient does have a history of hypertension and his blood pressure was 201/102 when he arrived to the emergency room. According to his daughter, she believes that he ran out of his blood pressure medications. The patient also informs me that he had an appointment yesterday at [facility] for a lumbar spine injection and his blood pressure was significantly elevated then. The procedure was not canceled and he did undergo the lumbar spine procedure. He woke up this morning with a slurred speech. He states that speech symptoms lasted less than 1 hour and resolved spontaneously. At the time of my evaluation, he is lying in his bed, in the emergency room and denies any neurological complaints. A CT scan of the brain was done which showed generalized atrophy and small- vessel ischemic changes. There was evidence of basilar artery dilatation. His CBC, cardiac enzymes and urinalysis were done and they were normal. His comprehensive metabolic profile was normal except for slightly elevated BUN at 23. His blood pressure has improved at the time of my evaluation at 146/70. PAST MEDICAL HISTORY: Hypertension, chronic low back pain, lumbar stenosis, gastroesophageal reflux disease, dyslipidemia, arthritis, prostate disorder, history of spine surgery, hernia repair, tonsillectomy, depression. SOCIAL HISTORY: The patient is a former smoker. There is no history of any drug use. He does drink alcohol daily. FAMILY HISTORY: Positive for heart disease and stroke and cancer. HOME MEDICATIONS: Reviewed in the chart. ALLERGIES: No known drug allergies. REVIEW OF SYSTEMS: CONSTITUTIONAL: Negative. EYES: Negative. ENT: Negative. CARDIOVASCULAR: As mentioned above. RESPIRATORY: Negative. NEUROLOGICAL: As mentioned above. He denies any lateralizing numbness or weakness. GASTROINTESTINAL: Positive for occasional heartburn. GENITOURINARY: Positive for occasional stress incontinence. MUSCULOSKELETAL: As mentioned above. DERMATOLOGICAL: Negative. ENDOCRINE: Negative. PSYCHIATRIC: Positive for history of depression. PHYSICAL EXAM: Vital signs show a temperature of 97.2, pulse 66, respiration 18, blood pressure 146/70. GENERAL APPEARANCE: The patient is a mildly obese, elderly male, who appears to be in no acute distress. HEENT: Normocephalic, atraumatic, no facial asymmetry is seen. There is a corneal injection seen in the left eye, vision is normal. NECK: Supple with no masses felt. CARDIOVASCULAR: Regular rate and rhythm. ABDOMEN: Nontender, nondistended. EXTREMITIES: Showed mild edema with no clubbing seen. NEUROLOGICAL EXAM: The patient is awake and oriented x3. Speech and language are normal. Strength is full in all 4 extremities. Sensory exam was normal to light touch in all 4 extremities. No pronator drift is seen. No facial asymmetry is noticed on cranial nerve testing. No tremors or seizure-like activity is seen. IMPRESSION: 1. Transient ischemic attack. 2. Dysarthria, resolved. 3. Uncontrolled hypertension. 4. Chronic low back pain. RECOMMENDATION: The patient does appear to have suffered a transient ischemic attack with a transient episode of dysarthria. This was likely due to his uncontrolled hypertension. As mentioned above, the patient does have a history of hypertension, but ran out of his medications. The importance of medication compliance was discussed with the patient. His CT scan of the brain was reviewed and there was evidence of an incidental finding of possible basilar artery dilatation. A CT angiogram of the brain is recommended. I will order also a carotid Doppler, fasting lipid panel, and serum homocystine level. The patient has been started on aspirin 81 mg daily as he was not on any anti-platelet therapy at home. Continue the rest of your current workup and management. I will continue to follow with you. Further recommendations to follow. Thank you for allowing me to participate in the care of your patient. If you have any questions, please feel free to contact me. MMODL / IJN: [id number] /
[2018-02-13] MEDS ORDERED: hydrALAZINE HCL 20 MG/ML 1 ML VIAL IVP PRN (12:45)
[2018-02-13] MEDS: LISINOPRIL 20 MG TAB PO SCH ×2 (14:00→21:03)
[2018-02-13] MEDS: METHOCARBAMOL 750 MG TAB PO SCH (14:00)
--- NOTE | 2018-02-13 14:53 | P.PN ---
Subjective Progress Note Date: 02/13/18 Mr. Hansen is an 87-year-old male one of Dr. Bautista with a previous medical history significant for hypertension and hypertensive cardiovascular disease, hyperlipidemia, pulmonary emboli in 2015 obesity, gastroesophageal reflux disease, benign prostatic hypertrophy, major depressive disorder admitted to the emergency room secondary to dysarthria. Patient's dysarthria has been recurrent over the past 24 hours, and started last night patient this is accompanied by weakness on the right lower extremity. No double vision, no upper motor extremity weakness. He would have clarity in his speech intermittently and it would come back again with jumbled words. No previous stroke or heart attack in the past. No history of seizures DVT PE, no diabetes mellitus no A. fib noted CHF CAD in the past. He had been off his hydrochlorothiazide for several months now, and was discontinued by mistake as the patient failed to refill this medication. He was last seen by Dr. Bautista approximate 4 months ago, no new medications from anybody else. He had been going to epidural steroid injections for his lumbar back area, and apparently yesterday's blood pressures been running between 158-193 systolic blood pressure. Blood pressure last night was for 204/125 when the event happened.. Imaging studies in the emergency room, EKG sinus rhythm heart rate 63, LVH with QRS widening, echocardiogram sinus rhythm with PVCs EF 6065%, right ventricle mildly enlarged, mild aortic sclerosis mild AR mild MR and mild TR and mild pulmonic hypertension right ventricular systolic pressure 38 mild TR no pericardial effusion. 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 Patient was hypertensive with systolic blood pressure of 190-200 systolic, patient was started on aspirin, as well as labetalol and hydralazine was given along with enalapril. consult was made with neurology Dr. Elmore 02/13: Blood pressure remains elevated for which patient required Vasotec. We will plan to increase lisinopril to 20 mg twice daily and hydralazine is available as needed. The patient is having brief episodes of difficulty with the speech. MRI of the brain ordered and changed to stat. Troponins have been negative on 3 draws, triglycerides 91, cholesterol 168, LDL 82 and HDL 68. Echocardiogram reveals EF of 60-65% with moderate concentric left ventricular hypertrophy, mild aortic valve sclerosis, mild aortic regurgitation, mild mitral regurgitation, mild tricuspid regurgitation, mild pulmonary hypertension , moderate pulmonary regurgitation. 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 Prominence in size of cavernous and supraclinoid portions of the internal carotid arteries bilaterally. No aneurysmal outpouching or dissection of the intracranial vasculature or vasculature of the head or neck. Clinically there may be cranial nerve dysfunction. Review Of Systems: Constitutional: No fever, no chills, no night sweats. No weight change. No weakness, reports fatigue. No daytime sleepiness. EENT: No headache. No blurred vision or double vision, no loss of vision. No loss of Hearing, no ringing in the ears, no dizziness. No nasal drainage or congestion. No epistaxis. No sore throat. Lungs: No shortness of breath, cough, no sputum production. No wheezing. Cardiovascular: No chest pain, no lower extremity edema. No palpitations. No paroxysmal nocturnal dyspnea. No orthopnea. No lightheadedness or dizziness. No syncopal episodes. Abdominal: No abdominal pain. No nausea, vomiting. No diarrhea. No constipation. No bloody or tarry stools.. No loss of appetite. Genitourinary: No dysuria, increased frequency, urgency. No urinary retention. Musculoskeletal: No myalgias. No muscle weakness, no gait dysfunction, no frequent falls. No back pain. No neck pain. Integumentary: No wounds, no lesions. No rash or pruritus. No unusual bruising. No change in hair or nails. Neurologic: Reports aphasia. No facial droop. No change in mentation. No head injury. No headache. No paralysis. No paresthesia. Psychiatric: No depression. No anxiety. No mood swings. Endocrine: No abnormal blood sugars. No weight change. No excessive sweating or thirst. No cold intolerance. No weight change. Objective - Vital Signs Vital signs: Vital Signs Temp 97.4 F L 02/13/18 08:55 Pulse 79 02/13/18 08:55 Resp 18 02/13/18 08:55 BP 183/82 02/13/18 08:55 Pulse Ox 95 02/13/18 08:55 Intake & Output 02/12/18 02/13/18 02/13/18 18:59 06:59 18:59 Intake Total 360 Output Total 800 Balance -800 360 Weight 113.398 kg 113.4 kg Intake: Oral 360 Output: Urine 800 Other: Voiding Method Urinal # Voids 0 1 # Bowel Movements 1 - Exam General appearance: average body habitus, no acute distress, obese, resting in bed and appears comfortable - EENT Eyes: anicteric sclerae, EOMI, PERRLA, dentition normal, normal appearance ENT: hard of hearing, NA/AT, normal oropharynx - Neck Neck: normal ROM - Respiratory Respiratory: bilateral: CTA, negative: diminished, dullness, rales, rhonchi, wheezing - Cardiovascular Rhythm: regular Heart sounds: normal: S1, S2 Abnormal Heart Sounds: no systolic murmur, no diastolic murmur, no rub, no S3 Gallop, no S4 Gallop, no click, no other - Gastrointestinal General gastrointestinal: normal bowel sounds, soft - Integumentary Integumentary: decreased turgor, normal - Neurologic Neurologic: CNII-XII intact - Musculoskeletal Musculoskeletal: gait normal, strength equal bilaterally - Psychiatric Psychiatric: A&O x's 3, appropriate affect, intact judgment & insight - Labs CBC & Chem 7: 02/13/18 07:42 02/13/18 07:42 Labs: Abnormal Lab Results - Last 24 Hours (Table) 02/12/18 02/13/18 Range/Units 11:10 07:42 BUN 22 H (9-20) mg/dL Glucose 127 H (74-99) mg/dL HDL Cholesterol 68 H (40-60) mg/dL Urine Blood Trace H (Negative) Assessment and Plan Plan: 1. TIA with uncontrolled blood pressure prior to admission, hypertensive emergency on initial presentation, CVA is under differential secondary to crescendo presentation,. Continue aspirin 81 mg daily, Lipitor 20 mg daily, lisinopril increased to 20 mg twice daily, hydralazine IV and Vasotec IV as needed. MRI with MRA of the brain, consult with Dr. Ramírez arnold. 2. Hypertensive emergency, patient will be started on lisinopril and increased to 20 mg twice a day. Goal blood pressure between 140-160 over the next 1-2 days , then thereafter maintain normotensive blood pressure between 120-140 to avoid significant lowering of Brain perfusion. Enalapril every 6 when necessary for systolic 160 or more, hydralazine 10 every 4 when necessary for blood pressure over 190 3. Prior history 2015 Significant bilateral pulmonary emboli with with extensive involvement of the upper and lower branches of both pulmonary arteries and left of the CT findings suggestive of right ventricular strain, 4. Hyperlipidemia. Continue Lipitor 20 mg at bedtime. 5. Valvular heart disease with mild pulmonary hypertension at that particular systolic pressure 38, mild MR and mild TR and moderate AR right ventricle mildly enlarged EF 60-65% 6. Benign prostatic hypertrophy. 7. GERD continue Protonix. 8. Lumbar disc disease with recent epidural steroid injection by orthopedic associates yesterday, on Robaxin, patient is not on any narcotics prior to admission 9. Left eye subconjunctival hemorrhage, with recent injection to the eye by his soft drink powder mixer, diagnosis is not yet presented to the patient 10. Insomnia. 11. Reactive airway disease currently asymptomatic, on Flonase daily, and albuterol when necessary 12. Chronic maxillary sinusitis with mucous recent retention cyst, no current antibiotic is needed 13. 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 DVT prophylaxis 15. GI prophylaxis Discharge plan: Return home Impression and plan of care have been directed as dictated by the signing physician. Cece Cheng nurse practitioner acting as scribe for signing physician.
[2018-02-13] MEDS: ENALAPRILAT 1.25 MG/ML 1 ML VIAL IVP PRN ×2 (15:41→22:15)
--- NOTE | 2018-02-13 16:13 | P.PN ---
Subjective Progress Note Date: 02/13/18 Principal diagnosis: TIA Neurology is following an 87-year-old male for TIA. Patient was brought to the ED after he suffered a sudden onset of slurred speech. Patient was significantly hypertensive at home prior to transport. Patient does have history of hypertension with blood pressure in excess of 200. Patient's family believes that he ran out of his blood pressure medication for several days prior to presentation. Patient didn't present at his orthopedic provider, had a lumbar related procedure with known elevated blood pressure. Symptoms lasted approximately 1 hour. 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 Also prominence in size of the cavernous and supraclinoid of the internal carotid arteries bilaterally. No aneurysmal outpouchings or dissection of the intra vasculature vasculature of the head or neck. It did note that clinically there may be some cranial nerve dysfunction. On rounding, nursing was in the room and stated that the patient had had some difficulty with word finding and some possible expressive aphasia and hot mill observer had ordered an MRI brain to further investigate underlying etiology. On contact, patient was alert and oriented 3, patient did have visible mild left-sided upper perioral droop. Family was in the room. Nursing also noted that this was new as well. Objective - Vital Signs Vital signs: Vital Signs Temp 97.4 F L 02/13/18 08:55 Pulse 70 02/13/18 11:15 Resp 18 02/13/18 08:55 BP 149/95 02/13/18 14:21 Pulse Ox 95 02/13/18 08:55 Intake & Output 02/12/18 02/13/18 02/13/18 18:59 06:59 18:59 Intake Total 600 Output Total 800 Balance -800 600 Weight 113.398 kg 113.4 kg Intake: Oral 600 Output: Urine 800 Other: Voiding Method Urinal # Voids 0 1 # Bowel Movements 1 - Exam Gen. appearance: Alert and oriented 3 Head: Atraumatic normocephalic, normal inspection Eyes: Well appearance, PERRL, EOMI. absent: Scleral icterus, conjunctival injection, nystagmus, periorbital swelling. Ear nose and throat: Normal exam, mucous membranes moist Neck: Normal inspection. Absent tenderness, lymphadenopathy Respiratory: No increased work of breathing. Cardiovascular: Regular rate, normal rhythm, normal heart sounds. Absent systolic murmur, diastolic murmur, rubs, gallops, clicks GIabdominal: Normal bowel sounds, non distended, no tenderness, no guarding, no rebound, no rigidity. Extremities: All range of motion, normal capillary refill, no tenderness, pedal edema, joint swelling, calf tenderness Neurological: Alert and oriented 3, cranial nerves II through XII intact, no unilateral lateralizing weakness, no seizure activity noted on physical exam, no pronator drift and no nystagmus. Left upper perioral droop notedmild. Intermittent word finding difficulty and expressive aphasia were noted Psychological: Mood and affect appropriate setting - Labs CBC & Chem 7: 02/13/18 07:42 02/13/18 07:42 Labs: Abnormal Lab Results - Last 24 Hours (Table) 02/13/18 Range/Units 07:42 BUN 22 H (9-20) mg/dL Glucose 127 H (74-99) mg/dL HDL Cholesterol 68 H (40-60) mg/dL Assessment and Plan (1) TIA (transient ischemic attack) Current Visit: Yes Status: Acute Code(s): G45.9 - TRANSIENT CEREBRAL ISCHEMIC ATTACK, UNSPECIFIED SNOMED Code(s): 230588808 (2) Expressive aphasia Current Visit: Yes Status: Acute Code(s): R47.01 - APHASIA SNOMED Code(s) : 603327196 (3) Word finding difficulty Current Visit: Yes Status: Acute Code(s): R47.89 - OTHER SPEECH DISTURBANCES SNOMED Code(s): 687554643 (4) Facial droop Current Visit: Yes Status: Acute Code(s): R29.810 - FACIAL WEAKNESS SNOMED Code(s): 94334262 Plan: Patient does appear to have suffered a TIA which was likely due to his hypertension. Although today, his hypertension was significantly less than in the past he was still hypertensive. CT angiogram was reviewed by supervising physician no further testing related to CT angiogram was recommended. Based on symptoms and presentation well in the room during physical exam, patient's MRI was changed to stat status for further evaluation. Patient will be changed to Plavix 75 mg daily if the patient's updated MRI does not reveal any changes. Continue Lipitor 20 mg for risk reduction. Continue neuro checks as implemented. Notify neurology with any neurological status changes. Continue with speech, PT, OT consults is already implemented. Status: Neurology will continue to follow and provide updates as needed or warranted. I discussed the patients history, physical exam, diagnostic testing, lab work and imaging with Dr Elmore prior to implementing the plan above. He agrees with the plan as implemented prior to implementation.
[2018-02-13 18:44] LABS: Hemoglobin A1C 5.2 % (4.0-6.0)
--- NOTE | 2018-02-13 18:44 | MR ---
EXAMINATION TYPE: MR brain wo/w con DATE OF EXAM: 02/13/2018 COMPARISON: 12/12/2010 HISTORY: TIA, lt eye blurred vision TECHNIQUE: Multiplanar, multisequence images of the brain and brainstem is performed without and with IV contras t, utilizing 11.5 mL intravenous Gadavist . FINDINGS: There is cerebral cortical atrophy. There is no mass effect nor midline shift. There is no sign of in tracranial hemorrhage. There is patchy increased signal throughout the periventricular white matter. This is consistent with chronic small vessel ischemia. These areas measure up to 1.5 cm. There is coa lescent white matter increased signal. There is no hydrocephalus. The brainstem is intact. There is t hinning of the corpus callosum. Sella turcica appears normal. There is no evidence of cortical infarc t. 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 No acute intracranial abnor mality.
[2018-02-13] MEDS: ATORVASTATIN 20 MG TAB PO SCH (21:03)
[2018-02-14 03:08] VITALS: TEMP 98
[2018-02-14] MEDS: PANTOPRAZOLE 40 MG TABLET PO SCH (06:37)
[2018-02-14 07:07] LABS: Basophils # (A) 0.1 k/uL (0-0.2); Basophils % (A) 1 %; Eosinophils # (A) 0.2 k/uL (0-0.7); Eosinophils % (A) 2 %; HCT 45.6 % (39.0-53.0); HGB 14.9 gm/dL (13.0-17.5); Lymphocytes # (A) 1.6 k/uL (1.0-4.8); Lymphocytes % (A) 17 %; MCH 29.4 pg (25.0-35.0); MCHC 32.7 g/dL (31.0-37.0); MCV 89.9 fL (80.0-100.0); Mean Platelet Volume 7.9; Monocytes # (A) 0.6 k/uL (0-1.0); Monocytes % (A) 7 %; Neutrophils # (A) 6.3 k/uL (1.3-7.7); Neutrophils % (A) 70 %; Platelet Count 198 k/uL (150-450); RBC 5.07 m/uL (4.30-5.90); RDW 13.8 % (11.5-15.5); WBC 8.9 k/uL (3.8-10.6)
[2018-02-14 07:21] LABS: ALT 19 U/L (21-72); AST 18 U/L (17-59); Albumin 3.5 g/dL (3.5-5.0); Alkaline Phosphatase 54 U/L (38-126); Anion Gap 7 mmol/L; Blood Urea Nitrogen 23 mg/dL (9-20); Calcium 9.1 mg/dL (8.4-10.2); Carbon Dioxide 25 mmol/L (22-30); Chloride 108 mmol/L (98-107); Glucose 102 mg/dL (74-99); Potassium 4.1 mmol/L (3.5-5.1); Sodium 140 mmol/L (137-145); Total Bilirubin 0.9 mg/dL (0.2-1.3); Total Protein 6.2 g/dL (6.3-8.2)
[2018-02-14] MEDS: METHOCARBAMOL 750 MG TAB PO SCH (10:08)
[2018-02-14] MEDS: LISINOPRIL 20 MG TAB PO SCH (10:08)
[2018-02-14] MEDS: ASPIRIN 81 MG PO SCH (10:08)
[2018-02-14] MEDS ORDERED: amLODIPine 5 MG TAB PO SCH (13:30)
[2018-02-14] MEDS ORDERED: CLOPIDOGREL 75 MG TAB PO SCH (13:30)
[2018-02-14 13:42] VITALS: BP 139/89; PULSE 88
[2018-02-14] MEDS ORDERED: ATORVASTATIN 40 MG TAB PO SCH (14:00)
--- NOTE | 2018-02-14 14:48 | P.DS ---
<Cece Cheng A - Last Filed: 02/14/18 14:45> Providers Date of admission: 02/12/18 10:54 Expected date of discharge: 02/14/18 Attending physician: Kimberly Mccoy Consults: 02/12/18 10:55 Consult Physician Routine Consulting Provider: Kevin Elmore Consult Reason/Comments: cva Do you want consulting provider notified?: Yes Primary care physician: [facility] Course: Mr. Hansen is an 87-year-old male one of Dr. Bautista with a previous medical history significant for hypertension and hypertensive cardiovascular disease, hyperlipidemia, pulmonary emboli in 2015 obesity, gastroesophageal reflux disease, benign prostatic hypertrophy, major depressive disorder admitted to the emergency room secondary to dysarthria. Patient's dysarthria has been recurrent over the past 24 hours, and started last night patient this is accompanied by weakness on the right lower extremity. No double vision, no upper motor extremity weakness. He would have clarity in his speech intermittently and it would come back again with jumbled words. No previous stroke or heart attack in the past. No history of seizures DVT PE, no diabetes mellitus no A. fib noted CHF CAD in the past. He had been off his hydrochlorothiazide for several months now, and was discontinued by mistake as the patient failed to refill this medication. He was last seen by Dr. Bautista approximate 4 months ago, no new medications from anybody else. He had been going to epidural steroid injections for his lumbar back area, and apparently yesterday's blood pressures been running between 158-193 systolic blood pressure. Blood pressure last night was for 204/125 when the event happened.. Imaging studies in the emergency room, EKG sinus rhythm heart rate 63, LVH with QRS widening, echocardiogram sinus rhythm with PVCs EF 6065%, right ventricle mildly enlarged, mild aortic sclerosis mild AR mild MR and mild TR and mild pulmonic hypertension right ventricular systolic pressure 38 mild TR no pericardial effusion. 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 Patient was hypertensive with systolic blood pressure of 190-200 systolic, patient was started on aspirin, as well as labetalol and hydralazine was given along with enalapril. consult was made with neurology Dr. Elmore 02/13: Blood pressure remains elevated for which patient required Vasotec. We will plan to increase lisinopril to 20 mg twice daily and hydralazine is available as needed. The patient is having brief episodes of difficulty with the speech. MRI of the brain ordered and changed to stat. Troponins have been negative on 3 draws, triglycerides 91, cholesterol 168, LDL 82 and HDL 68. Echocardiogram reveals EF of 60-65% with moderate concentric left ventricular hypertrophy, mild aortic valve sclerosis, mild aortic regurgitation, mild mitral regurgitation, mild tricuspid regurgitation, mild pulmonary hypertension , moderate pulmonary regurgitation. 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 Prominence in size of cavernous and supraclinoid portions of the internal carotid arteries bilaterally. No aneurysmal outpouching or dissection of the intracranial vasculature or vasculature of the head or neck. Clinically there may be cranial nerve dysfunction. 02/14: MRI of the brain reveals cerebral atrophy and extensive chronic small vessel ischemia. No acute intracranial abnormality. Neurology has recommended Plavix 75 mg daily. Aspirin will be discontinued. Blood pressure continues to be elevated at 139/89 and Norvasc will be added to his regime. Patient will be discharged home today in stable condition. Discharge diagnoses: 1. TIA secondary to uncontrolled hypertensive emergency. CVA ruled out 2. Hypertensive emergency 3. Prior history 2015 Significant bilateral pulmonary emboli with with extensive involvement of the upper and lower branches of both pulmonary arteries and left of the CT findings suggestive of right ventricular strain, 4. Hyperlipidemia 5. Valvular heart disease with mild pulmonary hypertension right ventricular systolic pressure 38, mild MR and mild TR and moderate [place] right ventricle mildly enlarged EF 60-65% 6. Benign prostatic hypertrophy 7. GERD 8. Lumbar disc disease with recent epidural steroid injection by orthopedic associates yesterday 9. Left eye subconjunctival hemorrhage, with recent injection to the eye by his deputy prosecuting attorney 10. Insomnia. 11. Reactive airway disease currently asymptomatic 12. 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 Cece hCeng nurse practitioner acting as scribe for signing physician. Patient Condition at Discharge: Good Plan - Discharge Summary Discharge Rx Participant: Yes New Discharge Prescriptions: New amLODIPine [Norvasc] 5 mg PO DAILY #30 tab Clopidogrel [Plavix] 75 mg PO DAILY #30 tab Lisinopril [Zestril] 20 mg PO BID #60 tab Atorvastatin [Lipitor] 40 mg PO HS #30 tablet Continue Antiarthritic Combination No.2 [Glucosamine-Chondroitin] 900 mg PO DAILY Omeprazole [PriLOSEC] 20 mg PO DAILY hydrOXYzine HCL [Atarax] 25 mg PO DAILY Albuterol Inhaler [Ventolin Hfa Inhaler] 1 puff INHALATION RT-Q6H PRN PRN Reason: Shortness Of Breath Fluticasone Nasal [place] [Flonase Nasal [place]] 2 spray EA NOSTRIL DAILY #1 box Meloxicam [Mobic] 7.5 mg PO DAILY Methocarbamol [Robaxin] 750 mg PO DAILY Changed Hydrochlorothiazide 25 mg PO DAILY PRN #30 tablet PRN Reason: Edema Discontinued Simvastatin [Zocor] 40 mg PO HS Discharge Medication List Albuterol Inhaler [Ventolin Hfa Inhaler] 1 puff INHALATION RT-Q6H PRN 07/27/14 [ History] Antiarthritic Combination No.2 [Glucosamine-Chondroitin] 900 mg PO DAILY [History] Omeprazole [PriLOSEC] 20 mg PO DAILY 07/27/14 [History] hydrOXYzine HCL [Atarax] 25 mg PO DAILY 07/27/14 [History] Fluticasone Nasal [place] [Flonase Nasal [place]] 2 spray EA NOSTRIL DAILY #1 box [Rx] Meloxicam [Mobic] 7.5 mg PO DAILY 02/11/18 [History] Methocarbamol [Robaxin] 750 mg PO DAILY 02/11/18 [History] Atorvastatin [Lipitor] 40 mg PO HS #30 tablet 02/14/18 [Rx] Clopidogrel [Plavix] 75 mg PO DAILY #30 tab 02/14/18 [Rx] Hydrochlorothiazide 25 mg PO DAILY PRN #30 tablet 02/14/18 [Rx] Lisinopril [Zestril] 20 mg PO BID #60 tab 02/14/18 [Rx] amLODIPine [Norvasc] 5 mg PO DAILY #30 tab 02/14/18 [Rx] Follow up Appointment(s)/Referral(s): Prince Bautista MD [Primary Care Provider] - 02/28/18 10:30 am Kevin Elmore MD [STAFF PHYSICIAN] - 2 Weeks (Office to call with follow up appoitment.) Patient Instructions/Handouts: Transient Ischemic Attack (DC), Hypertension (DC ) Discharge Disposition: HOME SELF-CARE <Dione Ferrell - Last Filed: 02/15/18 19:31> Providers Expected date of discharge: 02/14/18 Hospital Course: hypertension persist between 139- 180 systolic, patient councelled regarding compliance to medications including mp monitoring and bp control.. amlodipine 5 mg daily added to lisinopril 20 bid.
--- NOTE | 2018-02-14 15:45 | P.PN ---
Subjective Progress Note Date: 02/14/18 Principal diagnosis: TIA Neurology is following an 87-year-old male for TIA. Patient was brought to the ED after he suffered a sudden onset of slurred speech. Patient was significantly hypertensive at home prior to transport. Patient does have history of hypertension with blood pressure in excess of 200. Patient's family believes that he ran out of his blood pressure medication for several days prior to presentation. Patient didn't present at his orthopedic provider, had a lumbar related procedure with known elevated blood pressure. Symptoms lasted approximately 1 hour. 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 Also prominence in size of the cavernous and supraclinoid of the internal carotid arteries bilaterally. No aneurysmal outpouchings or dissection of the intra vasculature vasculature of the head or neck. It did note that clinically there may be some cranial nerve dysfunction. Interval update 02/14/18: Patient's MRI with and without contrast on 02/13/18 noted no acute process however noted extensive chronic small vessel ischemic disease. Patient does still state that he has intermittent word finding difficulty. Patient's lipid panel is relatively unremarkable. On contact, patient was alert and oriented 3, patient did have some resolution to his mild left-sided upper perioral droop. Family was in the room. Objective - Vital Signs Vital signs: Vital Signs Temp 98.0 F 02/14/18 08:00 Pulse 88 02/14/18 11:45 Resp 18 02/14/18 11:45 BP 139/89 02/14/18 11:45 Pulse Ox 93 L 02/14/18 11:45 Intake & Output 02/13/18 02/14/18 02/14/18 18:59 06:59 18:59 Intake Total 800 840 Balance 800 840 Weight 112.8 kg Intake: Oral 800 840 Other: Voiding Method Toilet # Voids 1 1 1 # Bowel Movements 1 - Exam Gen. appearance: Alert and oriented 3 Head: Atraumatic normocephalic, normal inspection Eyes: Well appearance, PERRL, EOMI. absent: Scleral icterus, conjunctival injection, nystagmus, periorbital swelling. Ear nose and throat: Normal exam, mucous membranes moist Neck: Normal inspection. Absent tenderness, lymphadenopathy Respiratory: No increased work of breathing. Cardiovascular: Regular rate, normal rhythm, normal heart sounds. Absent systolic murmur, diastolic murmur, rubs, gallops, clicks GIabdominal: Normal bowel sounds, non distended, no tenderness, no guarding, no rebound, no rigidity. Extremities: All range of motion, normal capillary refill, no tenderness, pedal edema, joint swelling, calf tenderness Neurological: Alert and oriented 3, cranial nerves II through XII intact, no unilateral lateralizing weakness, no seizure activity noted on physical exam, no pronator drift and no nystagmus. Left upper perioral droop notedmild. Intermittent word finding difficulty and expressive aphasia were noted Psychological: Mood and affect appropriate setting - Labs CBC & Chem 7: 02/14/18 05:52 02/14/18 05:52 Labs: Abnormal Lab Results - Last 24 Hours (Table) 02/14/18 Range/Units 05:52 Chloride 108 H (98-107) mmol/L BUN 23 H (9-20) mg/dL Glucose 102 H (74-99) mg/dL ALT 19 L (21-72) U/L Total Protein 6.2 L (6.3-8.2) g/dL Assessment and Plan (1) TIA (transient ischemic attack) Current Visit: Yes Status: Acute Code(s): G45.9 - TRANSIENT CEREBRAL ISCHEMIC ATTACK, UNSPECIFIED SNOMED Code(s): 139844135 (2) Expressive aphasia Current Visit: Yes Status: Acute Code(s): R47.01 - APHASIA SNOMED Code(s) : 062040387 (3) Word finding difficulty Current Visit: Yes Status: Acute Code(s): R47.89 - OTHER SPEECH DISTURBANCES SNOMED Code(s): 870968233 (4) Facial droop Current Visit: Yes Status: Acute Code(s): R29.810 - FACIAL WEAKNESS SNOMED Code(s): 82470979 Plan: Patient does appear to have suffered a TIA which was likely due to his hypertension. Although today, his hypertension was significantly less than in the past he was still hypertensive. CT angiogram was reviewed by supervising physician no further testing related to CT angiogram was recommended. Based on symptoms and presentation well in the room during physical exam, patient's MRI of the brain was negative for acute process but noted extensive chronic small vessel ischemic disease. Patient will be continued on Plavix 75 mg daily. Patient be continued on Lipitor but increased to 40 mg based on the extensive chronic small vessel ischemic disease. Status: Neurology will clear the patient for discharge from a neurological standpoint. Patient to follow-up in the office within 10-14 days. I discussed the patients history, physical exam, diagnostic testing, lab work and imaging with Dr Elmore prior to implementing the plan above. He agrees with the plan as implemented prior to implementation.
== END 2018-02-14 15:09 | disposition home or self-care (01) | DRG 69 ==
LOC: EC 08:10 → 3SCARD 10:54
PROVIDERS: ADMIT Internal Medicine; ATTEND Internal Medicine
DX: G45.9 Transient cerebral ischemic attack, unspecified (principal); I16.1 Hypertensive emergency; R47.01 Aphasia; R47.1 Dysarthria and anarthria; I11.9 Hypertensive heart disease without heart failure; E78.5 Hyperlipidemia, unspecified; E66.9 Obesity, unspecified; Z68.37 Body mass index [BMI] 37.0-37.9, adult; K21.9 Gastro-esophageal reflux disease without esophagitis; N40.0 Benign prostatic hyperplasia without lower urinary tract symptoms; F32.9 Major depressive disorder, single episode, unspecified; G47.00 Insomnia, unspecified; M48.061 Spinal stenosis, lumbar region without neurogenic claudication; H11.32 Conjunctival hemorrhage, left eye; I08.3 Combined rheumatic disorders of mitral, aortic and tricuspid valves; I27.20 Pulmonary hypertension, unspecified; I37.1 Nonrheumatic pulmonary valve insufficiency; I70.0 Atherosclerosis of aorta; J32.0 Chronic maxillary sinusitis; I49.3 Ventricular premature depolarization; J45.909 Unspecified asthma, uncomplicated; M51.9 Unspecified thoracic, thoracolumbar and lumbosacral intervertebral disc disorder; R29.810 Facial weakness; Z86.711 Personal history of pulmonary embolism; Z82.49 Family history of ischemic heart disease and other diseases of the circulatory system; Z82.3 Family history of stroke; Z80.9 Family history of malignant neoplasm, unspecified; Z79.82 Long term (current) use of aspirin; Z87.891 Personal history of nicotine dependence
CPT/HCPCS: 36415; 70450; 70496; 70498; 70553; 80053; 80061; 81001; 82550; 82553; 83036; 83090; 83735; 84100; 84484; 85025; 93005; 93306; 96361; 96374; 96375; 99291

== ENCOUNTER → 2018-09-11 | Outpatient (CLI) | payer MEDICARE, BC ==
--- NOTE | 2018-09-11 15:58 | PN ---
PROGRESS NOTE DATE OF SERVICE: 09/11/2018 This patient is an 88-year-old gentleman who has been followed in the sleep center for treatment of obstructive sleep apnea-hypopnea syndrome. The patient continues to use his CPAP equipment every night for the whole night without significant problems related to mask fitting, pressure or humidification. [place] Sleepiness Scale today is 3. I checked the patient's CPAP unit. CPAP pressure is 10 cm of water. Usage is every night, 30/30 nights, for more than 4 hours, with average usage 7.24 hours per night. The machine does not have a reading for apnea-hypopnea index. MEDICATIONS: 1. Carvedilol. 2. Omeprazole. 3. Furosemide. 4. Spironolactone. 5. Zocor. 6. Simms. 7. Aleve. 8. Albuterol. 9. Coumadin. PHYSICAL EXAMINATION: GENERAL: A pleasant patient in no distress. VITAL SIGNS: BP 144/83, HR 80, RR 16, height 5 feet 8 inches, weight 280 pounds. The patient's weight has increased by around 13 pounds compared to his previous visit. Temperature 98.2, oxygen saturation at room air 93%. HEENT: PERRLA, EOMI. Evaluation of oropharynx showed tongue protrudes midline. Low position of soft palate. Mallampati IV. NECK: Supple. No JVD. Thyroid is not palpable. LUNGS: Clear to percussion and to auscultation. Good air exchange. No wheezing or rhonchi. HEART: S1, S2 irregular. ABDOMEN: Obese. EXTREMITIES: One plus bilateral ankle edema. CENTER DIRECTOR LEAD TEACHER: Awake, alert, and oriented X3. Cranial nerves 2 to 7 intact. There is no fasciculation or atrophy. noted. No focal deficits observed. IMPRESSION: 1. Severe obstructive sleep apnea-hypopnea syndrome. The patient continues to use CPAP equipment every night and has demonstrated great compliance with treatment. 2. Obesity. 3. Hypertension. 4. Atrial fibrillation. 5. History of obstructive bronchitis. 6. Congestive heart failure. Swelling of the legs. 7. Hyperlipidemia. 8. History of rhinitis. 9. Status post back surgery. 10.Status post hernia repair. 11.History of periodic limb movements, in mild range. PLAN: 1. Patient will continue to use CPAP equipment every night for the whole night. 2. Losing weight. 3. Sleep hygiene with regular time in bed for at least 8 hours. 4. No driving if feeling any sleepiness. 5. Follow-up visit in November of 2018. At that time we will consider replacing the patient's CPAP unit. Thank you very much for allowing me to participate in the management of your patient. Sincerely, Juan Lafleur MD, PhD, FAASM Diplomat of [place] [employer] [place] [employer] Publicity Manager of [facility] [place] MMODL / IJN: [id number] /
== END | disposition home or self-care (01) ==
LOC: SLEEP 14:34
PROVIDERS: ATTEND Internal Medicine
DX: G47.33 Obstructive sleep apnea (adult) (pediatric) (principal); I11.0 Hypertensive heart disease with heart failure; I50.9 Heart failure, unspecified; I48.91 Unspecified atrial fibrillation; E78.5 Hyperlipidemia, unspecified; E66.9 Obesity, unspecified; Z87.09 Personal history of other diseases of the respiratory system; Z86.69 Personal history of other diseases of the nervous system and sense organs; Z79.1 Long term (current) use of non-steroidal anti-inflammatories (NSAID); Z79.01 Long term (current) use of anticoagulants; Z79.891 Long term (current) use of opiate analgesic; Z79.899 Other long term (current) drug therapy; Z98.890 Other specified postprocedural states; Z99.89 Dependence on other enabling machines and devices

== ENCOUNTER → 2018-12-26 | Outpatient (CLI) | payer MEDICARE, BC ==
--- NOTE | 2018-12-26 17:25 | PN ---
PROGRESS NOTE DATE OF SERVICE: 12/26/2018 This patient is an 88-year-old gentleman who has been followed in Sleep Center for treatment of obstructive sleep apnea-hypopnea syndrome. The patient continues to use his CPAP equipment every night without problems. He likes his full-face mask. His machine is quite old. [place] Sleepiness Scale today is 5. I checked his CPAP unit. CPAP pressure is 10 cm of water. Usage is 100% of nights for more than 4 hours with average usage 8 hours per night. No information about apnea- hypopnea index from the machine. MEDICATIONS: 1. Carvedilol. 2. Omeprazole. 3. Furosemide. 4. Spironolactone. 5. Zocor. 6. Cable. 7. Aleve. 8. Albuterol. 9. Coumadin. PHYSICAL EXAMINATION: GENERAL: A pleasant patient in no distress. VITAL SIGNS: BP 137/83, HR 91, RR 18, height 5 feet 5 inches, weight 277.4, temperature 97.4, oxygen saturation at room air 93%. Body mass index 45.3. HEENT: PERRMIR, EOMI. Evaluation of oropharynx showed tongue protrudes midline. Low position of soft palate. Mallampati IV. NECK: Supple. No JVD. Thyroid is not palpable. LUNGS: Clear to percussion and to auscultation. Good air exchange. No wheezing or rhonchi. HEART: Pulse sounds regular. No murmurs, gallops or rubs. ABDOMEN: Obese. EXTREMITIES: No clubbing or cyanosis. FORM PRESSER: Awake, alert, and oriented X3. Cranial nerves 2 to 7 intact. There is no fasciculation or atrophy. noted. No focal deficits observed. IMPRESSION: 1. Severe obstructive sleep apnea-hypopnea syndrome. The patient demonstrated 100% compliance with treatment, benefitting from treatment. CPAP unit is old. 2. History of atrial fibrillation; at present heart rate sounds regular. 3. Obesity. 4. Hypertension. 5. History of obstructive bronchitis. 6. History of congestive heart failure. 7. Hyperlipidemia. 8. Status post back surgery. 9. Status post hernia repair. 10.Mild range of periodic limb movements. PLAN: 1. Prescription for new CPAP unit with a pressure of 10 cm of water and all necessary CPAP supplies, including AirFit F20 full-face mask. 2. Patient will continue to use CPAP equipment every night for the whole night. 3. Losing weight. 4. Sleep hygiene with regular time in bed for at least 7-1/2 hours. 5. No driving if feeling any sleepiness. Thank you very much for allowing me to participate in the management of your patient. Sincerely, Juan Lafleur MD, PhD, FAASM Diplomat of [place] [employer] [place] [employer] Lawn Technician of [facility] [place] MMODL / IDRISN: [id number] /
== END | disposition home or self-care (01) ==
LOC: SLEEP 14:00
PROVIDERS: ATTEND Internal Medicine
DX: G47.33 Obstructive sleep apnea (adult) (pediatric) (principal); E66.9 Obesity, unspecified; E78.5 Hyperlipidemia, unspecified; I10 Essential (primary) hypertension; G47.61 Periodic limb movement disorder; Z68.42 Body mass index [BMI] 45.0-49.9, adult; Z86.79 Personal history of other diseases of the circulatory system; Z87.09 Personal history of other diseases of the respiratory system; Z98.1 Arthrodesis status; Z98.890 Other specified postprocedural states; Z79.01 Long term (current) use of anticoagulants; Z79.891 Long term (current) use of opiate analgesic; Z79.899 Other long term (current) drug therapy

== ENCOUNTER → 2019-03-13 | Outpatient (CLI) | payer MEDICARE, BC ==
--- NOTE | 2019-03-13 15:36 | SFUN ---
SLEEP CENTER FOLLOW UP NOTE DATE OF SERVICE: 03/13/2019 An 88-year-old gentleman who has been followed in the Sleep Center for treatment of obstructive sleep apnea-hypopnea syndrome, recently patient received new CPAP unit, and he is able to use machine without any problems. No snoring with the machine. [place] Sleepiness Scale today is 5. I checked CPAP unit. CPAP pressure is 10 cm of water. Usage is 7 hours per night. Patient used it 6 nights for the last month. Leak is 31 L/minute which is borderline for a full-face mask. Apnea-hypopnea index only 1.7 which is absolutely perfect. MEDICATIONS: Carvedilol, omeprazole, furosemide, spironolactone, Zocor, Latty, Aleve, albuterol, Coumadin. PHYSICAL EXAM: Patient in no distress, BP 115/67, HR 86, RR 18, weight 277, temp 96.8, oxygen saturation at room air 94%. OROPHARYNX: Low soft palate, Mallampati 4. NECK: Supple, no JVD. Thyroid is not palpable. LUNGS: Clear to percussion and to auscultation. Good air exchange. No wheezing or rhonchi. HEART: S1, S2 regular. No murmurs, gallops, or rubs. ABDOMEN: Soft and nontender. Bowel sounds are present. No organomegaly appreciated. EXTREMITIES: No clubbing or cyanosis. STATIONARY ENGINEER REFRIGERATION: Awake, alert, and oriented X3. Cranial nerves 2 to 7 intact. There is no fasciculation or atrophy. noted. No focal deficits observed. IMPRESSION: 1. Severe obstructive sleep apnea-hypopnea syndrome, normal respiration on new CPAP unit. 2. History of atrial fibrillation. 3. Obesity. 4. Hypertension. 5. History of obstructive bronchitis. 6. History of congestive heart failure. 7. Hyperlipidemia. 8. Status post back surgery. 9. Status post hernia repair. 10.Mild periodic limb movements on the sleep study. PLAN: 1. Patient will continue to use CPAP equipment every night for the whole night. 2. Losing weight. 3. Sleep hygiene with regular time in bed for 7.5 hours. 4. No driving if feeling sleepiness. 5. I will maintain all necessary prescriptions for CPAP supplies, including a full- face mask, tube, filters. Thank you very much for allowing me to participate in the management of your patient. Sincerely, Juan Lafleur, MD, PhD, FAASM Diplomat of [place] [employer] [employer] Ornamental Metal Worker Apprentice of [facility] [place] MMSMITH / STEPHANIE: [id number] /
== END | disposition home or self-care (01) ==
LOC: SLEEP 13:52
PROVIDERS: ATTEND Internal Medicine
DX: G47.33 Obstructive sleep apnea (adult) (pediatric) (principal); Z86.79 Personal history of other diseases of the circulatory system; E66.9 Obesity, unspecified; I10 Essential (primary) hypertension; Z87.09 Personal history of other diseases of the respiratory system; E78.5 Hyperlipidemia, unspecified; Z98.890 Other specified postprocedural states; G47.61 Periodic limb movement disorder; Z99.89 Dependence on other enabling machines and devices; Z79.891 Long term (current) use of opiate analgesic; Z79.01 Long term (current) use of anticoagulants; Z79.1 Long term (current) use of non-steroidal anti-inflammatories (NSAID); Z79.899 Other long term (current) drug therapy

== ENCOUNTER 2019-12-24 18:10 | Inpatient (IN) | payer MEDICARE, BC ==
[2019-12-24] MEDS ORDERED: fentaNYL (PF) 50 MCG/ML 2 ML AMP IVP STA (18:51)
[2019-12-24 19:07] LABS: Glucose,Whole Blood 97 mg/dL (75-99)
[2019-12-24 19:11] LABS: Albumin 3.5 g/dL (3.5-5.0); Total Bilirubin 1.3 mg/dL (0.2-1.3); Total Protein 6.6 g/dL (6.3-8.2)
[2019-12-24 19:13] LABS: INR 1.1 (<1.2)
[2019-12-24 19:14] LABS: Partial Thromboplastin Time 28.8 sec (22.0-30.0); Prothrombin Time 11.2 sec (9.0-12.0)
[2019-12-24 19:20] LABS: Potassium 4.1 mmol/L (3.5-5.1)
--- NOTE | 2019-12-24 19:35 | CT ---
EXAMINATION TYPE: CT brain mack esquivel DATE OF EXAM: 12/24/2019 COMPARISON: CT brain 02/12/2018 HISTORY: Altered mental status, fall x2 days ago. CT DLP: 1774.7 mGycm Automated exposure control for dose reduction was used. There is cerebral cortical atrophy. There is no mass effect nor midline shift. There is no sign of in tracranial hemorrhage. The calvarium is intact. There are mucus retention cysts in the maxillary sinu ses. The cervical vertebra have normal alignment. There is some narrowing of C5-6 and C6-7 disc spaces wit h spurring of the endplates. The posterior elements are intact. Facet joints are intact. Prevertebral soft tissues are intact. Skull base is intact. There is normal aeration of the mastoid sinuses. Ther e is dilated basilar artery measuring up to almost 8 mm. IMPRESSION: Spondylotic changes in the lower cervical spine. No fracture. Cerebral atrophy. No acute intracranial abnormality. Ectatic basilar artery. No change.
[2019-12-24 19:43] LABS: Basophils % (A) 0 %; Eosinophils % (A) 0 %; HCT 47.3 % (39.0-53.0); HGB 15.8 gm/dL (13.0-17.5); Lymphocytes # (A) 0.6 k/uL (1.0-4.8); Lymphocytes % (A) 13 %; MCH 29.8 pg (25.0-35.0); MCHC 33.4 g/dL (31.0-37.0); MCV 89.3 fL (80.0-100.0); Mean Platelet Volume 9.1; Monocytes # (A) 0.4 k/uL (0-1.0); Monocytes % (A) 8 %; Neutrophils # (A) 3.7 k/uL (1.3-7.7); Neutrophils % (A) 77 %; Platelet Count 103 k/uL (150-450); RBC 5.29 m/uL (4.30-5.90); WBC 4.8 k/uL (3.8-10.6)
--- NOTE | 2019-12-24 19:44 | CT ---
EXAMINATION TYPE: CT thor lumbar spine wo con DATE OF EXAM: 12/24/2019 COMPARISON: Chest CT scan 05/20/2015 HISTORY: Altered mental status, fall x2 days ago. CT DLP: 1859 mGycm Automated exposure control for dose reduction was used. Images were obtained from the level of T1-S1 vertebra without contrast. There is 6 mm anterior subluxation of L4 in relation L5. There is metal artifact from posterior fusio n surgery at L4-5. I see no compression fracture of the thoracic and lumbar spine. There is no thorac ic paraspinal mass. There are multiple mediastinal peritracheal lymph nodes that measure up to 2 cm. There is no lumbar paraspinal mass. There is moderate spinal stenosis due to facet arthropathy at L3- 4 and L2-3. There is laminectomy defect of L4. There is lateral recess stenosis at L3-4. I see no foc al bone destruction. Sacroiliac joints are intact. IMPRESSION: No compression fracture seen. 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 Spinal stenosis at L2 -3 and L3-4. No acute bony abnormality. Thoracic spine unchanged compared to old exam. Mediastinal adenopathy.
--- NOTE | 2019-12-24 19:45 | XR ---
EXAMINATION TYPE: XR pelvis AP view DATE OF EXAM: 12/24/2019 COMPARISON: NONE HISTORY: Pain TECHNIQUE: Single view FINDINGS: Pelvic ring is intact. Proximal femurs and hip joints are intact. Sacroiliac joints are int act. IMPRESSION: Normal exam. No fracture.
--- NOTE | 2019-12-24 19:46 | XR ---
EXAMINATION TYPE: XR chest 2V DATE OF EXAM: 12/24/2019 COMPARISON: NONE HISTORY: Pain TECHNIQUE: 2 views FINDINGS: There is some patchy infiltrate in the left lower lobe. There is also some linear infiltrat e and atelectasis right midlung. There is no heart failure. Heart appears enlarged. There are chest l sara. IMPRESSION: Bilateral pulmonary airspace infiltrates and atelectasis. No heart failure seen. No pneum othorax.
[2019-12-24] MEDS ORDERED: SODIUM CHLORIDE 0.9% 500 ML 500 ML IV ONE (20:18)
[2019-12-24] MEDS ORDERED: cefTRIAXone IN SWFI 1,000 MG/10 ML SYRINGE IVP STA (20:53)
[2019-12-24] MEDS ORDERED: AZITHROMYCIN 500 MG in SODIUM CHLORIDE 0.9% 250 ML IVPB STA (20:53)
[2019-12-24] MEDS ORDERED: HYDROmorphone 0.5 MG/0.5 ML SYRINGE IVP STA (20:53)
--- NOTE | 2019-12-24 20:55 | ED ---
Altered Mental Status HPI - General Chief Complaint: Altered Mental Status Stated Complaint: Altered Mental Status Time Seen by Provider: 12/24/19 18:15 Source: patient Mode of arrival: EMS Limitations: no limitations - History of Present Illness Initial Comments: Patient is an 89-year-old male who presents to the emergency department accompanied by his daughter. It was reported that the patient sustained a fall on Sunday. He reports that it was a mechanical fall. Fell onto his low back. Denies hitting his head. He denies losing any consciousness. He was unable to get up from the floor. Had to crawl to a chair. He states he's been able to get around the house however his daughter went over to the house today and found him sitting in the chair soiled and he had yet to eat today. Patient only complains of low back pain. The daughter brings up the fact that the patient has had a productive cough. No reported fevers or chills. Patient denies any chest pain. No abdominal pain. No changes in his bowel or bladder habits. Patient is not on any blood thinners. Denies any numbness or tingling into his lower extremities. No other alleviating, precipitating or modifying factors - Related Data Home Medications Medication Instructions Recorded Confirmed Omeprazole [PriLOSEC] 20 mg PO DAILY 07/27/14 12/24/19 hydrOXYzine HCL [Atarax] 25 mg PO DAILY 07/27/14 12/24/19 Meloxicam [Mobic] 7.5 mg PO DAILY 02/11/18 12/24/19 methocarbamoL [Robaxin] 750 mg PO DAILY 02/11/18 12/24/19 Aspirin [Adult Low Dose Aspirin EC] 81 mg PO DAILY 12/24/19 12/24/19 Atorvastatin [Lipitor] 40 mg PO HS 12/24/19 12/24/19 Finasteride [Proscar] 5 mg PO DAILY 12/24/19 12/24/19 Glucosam/Emmanuel-Msm1/C/James/Bosw 1 tab PO DAILY 12/24/19 12/24/19 [Glucosamine-Chondroitin Tablet] Oxybutynin Chloride 5 mg PO TID 12/24/19 12/24/19 hydroCHLOROthiazide 25 mg PO DAILY 12/24/19 12/24/19 Previous Rx's Medication Instructions Recorded Clopidogrel [Plavix] 75 mg PO DAILY #30 tab 02/14/18 amLODIPine [Norvasc] 5 mg PO DAILY #30 tab 02/14/18 lisinopriL [Zestril] 20 mg PO BID #60 tab 02/14/18 Allergies Allergy/AdvReac Type Severity Reaction Status Date / Time No Known Allergies Allergy Verified 12/24/19 23:03 Review of Systems ROS Statement: Those systems with pertinent positive or pertinent negative responses have been documented in the HPI. ROS Other: All systems not noted in ROS Statement are negative. Past Medical History Past Medical History: Asthma, GERD/Reflux, Hyperlipidemia, Hypertension, Osteoarthritis (OA), Prostate Disorder Additional Past Medical History / Comment(s): 07/27/14 enma PE, OTHER HX:RHINITIS,ENLARGED PROSTATE, [place] HEARING AIDS.in past took meds for gerd none now History of Any Multi-Drug Resistant Organisms: None Reported Past Surgical History: Back Surgery, Hernia Repair, Tonsillectomy Additional Past Surgical History / Comment(s): RT INGUINAL HERNIA REPAIR, ORIF LT ANKLE(PLATE AND SCREWS), COLONOSCOPY/EGD, CYSTOCOPY.PROCEDURE ON HIS BACK 02-11-19 "CUT A NERVE FOR RELIEVE PAIN". Past Anesthesia/Blood Transfusion Reactions: No Reported Reaction Past Psychological History: Depression Smoking Status: Never smoker Past Alcohol Use History: Occasional Past Drug Use History: None Reported - Past Family History Father Family Medical History: Coronary Artery Disease (CAD) Additional Family Medical History / Comment(s): either from stroke or mi can't remember Mother Family Medical History: Cancer, CVA/TIA Additional Family Medical History / Comment(s): unsure of what kind Daughter(s) Family Medical History: No Reported History Son(s) Family Medical History: No Reported History General Exam Limitations: no limitations General appearance: alert, in no apparent distress Head exam: Present: atraumatic, normocephalic, normal inspection Eye exam: Present: normal appearance, PERRL, EOMI. Absent: scleral icterus, conjunctival injection, periorbital swelling ENT exam: Present: normal exam, mucous membranes moist Neck exam: Present: normal inspection. Absent: tenderness, meningismus, lymphadenopathy Respiratory exam: Present: normal lung sounds bilaterally. Absent: respiratory distress, wheezes, rales, rhonchi, stridor Cardiovascular Exam: Present: regular rate, normal rhythm, normal heart sounds. Absent: systolic murmur, diastolic murmur, rubs, gallop, clicks GI/Abdominal exam: Present: soft, normal bowel sounds. Absent: distended, tenderness, guarding, rebound, rigid Extremities exam: Present: normal capillary refill, other (decreased strength b/l le. left worse than right. ). Absent: tenderness, pedal edema, joint swelling, calf tenderness Back exam: Present: normal inspection, muscle spasm, paraspinal tenderness (l2- l5) Neurological exam: Present: alert, oriented X3, CN II-XII intact Psychiatric exam: Present: normal affect, normal mood Skin exam: Present: warm, dry, intact, normal color. Absent: rash Course Vital Signs 12/24/19 12/24/19 12/24/19 18:14 21:00 22:19 Temperature 98.9 F 98.7 F Pulse Rate 78 82 82 Respiratory 16 120 H 16 Rate Blood Pressure 124/64 142/68 142/68 O2 Sat by Pulse 90 L 94 L 94 L Oximetry Procedures - [place] Protocol (Time Out) Nurse: Elenita Angela Medical Decision Making - Medical Decision Making Upon arrival patient was placed into room 4. A thorough history and physical exam was performed. Provide is established. Laboratory studies were conducted. Lab results are [place] for sodium of 132. Creatinine is 1.4. CPK elevated at 1538. Troponin 0.048. Patient is hypoxic. Does have a history of PE therefore CT of his head, cervical spine, thoracic and lumbar spine is performed. Chest and pelvic x-ray was also performed. CT angiography of the chest followed when kidney function was found to be able to sustain contrast. CT brain demonstrates no acute intracranial abnormality. CT of the lumbar and thoracic spine demonstrates no compression fracture. L4 to L5 spondylosis listhesis. Spinal stenosis at L2-L3 and L3-L4 chest x-ray demonstrates bilateral pulmonary airspace infiltrates. Pelvic x-ray demonstrates no acute fracture. CT fails to demonstrate evidence of PE. Patient does have a productive cough and therefore started on antibiotics. I did test him for Covid. He is on supplemental oxygen. I did recommend hospital admission for fluid hydration for which the patient agreed to. Discussed the case with Dr. Ham who accepted admission. Patient remained in stable condition and was taken to the floor - Lab Data Result diagrams: 12/25/19 05:44 11/02/20 05:42 Lab Results 12/24/19 12/24/19 12/24/19 Range/Units 18:56 18:56 18:56 WBC 4.8 (3.8-10.6) k/uL RBC 5.29 (4.30-5.90) m/uL Hgb 15.8 (13.0-17.5) gm/dL Hct 47.3 (39.0-53.0) % MCV 89.3 (80.0-100.0) fL MCH 29.8 (25.0-35.0) pg MCHC 33.4 (31.0-37.0) g/dL RDW 14.0 (11.5-15.5) % Plt Count 103 L (150-450) k/uL Neutrophils % 77 % Lymphocytes % 13 % Monocytes % 8 % Eosinophils % 0 % Basophils % 0 % Neutrophils # 3.7 (1.3-7.7) k/uL Lymphocytes # 0.6 L (1.0-4.8) k/uL Monocytes # 0.4 (0-1.0) k/uL Eosinophils # 0.0 (0-0.7) k/uL Basophils # 0.0 (0-0.2) k/uL PT 11.2 (9.0-12.0) sec INR 1.1 (<1.2) APTT 28.8 (22.0-30.0) sec Sodium 132 L (137-145) mmol/L Potassium 4.1 (3.5-5.1) mmol/L Chloride 103 (98-107) mmol/L Carbon Dioxide 18 L (22-30) mmol/L Anion Gap 11 mmol/L BUN 55 H (9-20) mg/dL Creatinine 1.43 H (0.66-1.25) mg/dL Est GFR (CKD-EPI)AfAm 51 (>60 ml/min/1.73 sqM) Est GFR (CKD-EPI)NonAf 44 (>60 ml/min/1.73 sqM) Glucose 106 H (74-99) mg/dL POC Glucose (mg/dL) (75-99) mg/dL POC Glu [place] ID Calcium 8.0 L (8.4-10.2) mg/dL Total Bilirubin 1.3 (0.2-1.3) mg/dL AST 98 H (17-59) U/L ALT 36 (4-49) U/L Alkaline Phosphatase 59 (38-126) U/L Creatine Kinase 1538 H* (55-170) U/L Troponin I (0.000-0.034) ng/mL Total Protein 6.6 (6.3-8.2) g/dL Albumin 3.5 (3.5-5.0) g/dL 12/24/19 12/24/19 Range/Units 18:56 19:04 WBC (3.8-10.6) k/uL RBC (4.30-5.90) m/uL Hgb (13.0-17.5) gm/dL Hct (39.0-53.0) % MCV (80.0-100.0) fL MCH (25.0-35.0) pg MCHC (31.0-37.0) g/dL RDW (11.5-15.5) % Plt Count (150-450) k/uL Neutrophils % % Lymphocytes % % Monocytes % % Eosinophils % % Basophils % % Neutrophils # (1.3-7.7) k/uL Lymphocytes # (1.0-4.8) k/uL Monocytes # (0-1.0) k/uL Eosinophils # (0-0.7) k/uL Basophils # (0-0.2) k/uL PT (9.0-12.0) sec INR (<1.2) APTT (22.0-30.0) sec Sodium (137-145) mmol/L Potassium (3.5-5.1) mmol/L Chloride (98-107) mmol/L Carbon Dioxide (22-30) mmol/L Anion Gap mmol/L BUN (9-20) mg/dL Creatinine (0.66-1.25) mg/dL Est GFR (CKD-EPI)AfAm (>60 ml/min/1.73 sqM) Est GFR (CKD-EPI)NonAf (>60 ml/min/1.73 sqM) Glucose (74-99) mg/dL POC Glucose (mg/dL) 97 (75-99) mg/dL POC Glu [place] ID [place], Elenita Calcium (8.4-10.2) mg/dL Total Bilirubin (0.2-1.3) mg/dL AST (17-59) U/L ALT (4-49) U/L Alkaline Phosphatase (38-126) U/L Creatine Kinase (55-170) U/L Troponin I 0.048 H* (0.000-0.034) ng/mL Total Protein (6.3-8.2) g/dL Albumin (3.5-5.0) g/dL - EKG Data EKG Comments: EKG demonstrates sinus rhythm with a rate of 77. CO interval 182. QRS 108. QTC of 520. Right bundle branch block. No acute ST segment elevations or depressions Disposition Clinical Impression: Fall, Back pain, Elevated CPK, JASON (acute kidney injury), CAP (community acquired pneumonia) Disposition: ADMITTED IP TO THIS HOSP Condition: Stable Is patient prescribed a controlled substance at d/c from ED?: No Decision to Admit Reason: Admit from EC Decision Date: 12/24/19 Decision Time: 20:55
[2019-12-24] MEDS ORDERED: NALOXONE 0.4 MG/ML 1 ML VIAL IV PRN (20:57)
[2019-12-24] MEDS: SODIUM CHLORIDE 0.9% 1,000 ML IV SCH (22:04)
--- NOTE | 2019-12-24 22:07 | CT ---
EXAMINATION TYPE: CT chest angio for PE DATE OF EXAM: 12/24/2019 COMPARISON: 05/20/2015 HISTORY: SOB. hx of PE. CT DLP: 992.5 mGycm Automated exposure control for dose reduction was used. CONTRAST: Performed with IV Contrast, patient injected with 80cc mL of Isovue 370. There are 3-D post processed images. There is coarse interstitial density in the lower lung moya bilaterally. There is subsegmental atel ectasis at the lung bases. Heart is borderline enlarged. There is no pericardial effusion. There is m ild pleural thickening at the left posterior lung base. I see no filling defects in the pulmonary arteries. Thoracic aorta is atheromatous. There is no media stinal adenopathy. There are no hilar masses. The bony thorax is intact. IMPRESSION: No evidence of pulmonary embolism. Pulmonary fibrotic changes and subsegmental atelectasis. There is progression of the lung abnormality compared to old exam.
--- NOTE | 2019-12-24 22:35 | P.HPIM ---
History of Present Illness H&P Date: 12/24/19 Chief Complaint: Altered mental status, fall, back pain, possible Covid, left lower lobe pn 89-year-old male one of my office patient of known for long time with multiple medical problem who was in the hospital last time back in February 12 for CVA, patient is known to have history of hypertension, hyperlipidemia, chronic kidney disease, chronic lower back pain, atherosclerotic heart disease, obstructive sleep apnea and valvular heart disease who apparently had fell at home and had significant altered mental status could not control and look for help his daughter finally found him on the floor of his house for in known. Of time most likely over 12 hours after he sustained a fall without loss of consciousness or seizure according to him he developed to have significant dyspnea and shortness of breath 911 was called patient brought to the emergency department at [facility] where was seen and evaluated ended up having multiple testing including CT of the brain and cervical spine showed small vessel disease with severe arthritis, chest x-ray showed left lower lobe pneumonia, X-ray with no finding consistent with fracture, CTA showed no evidence of pulmonary embolism but mild pulmonary fibrotic change in sup segmental atelectasis with pneumonia the left side. Patient is known to have history of coagulopathy and blood clot the past was on anticoagulation previously. Patient CK was significantly elevated was diagnosed with rhabdomyolysis acute kidney injury his troponin was mildly elevated as well. Patient was started on hydration started on Rocephin and azithromycin for left sided pneumonia with a? Of Covid vest still pending at this point Review of Systems CONSTITUTIONAL: Mildly overweight with mild respiratory distress. EYES: No icterus sclerae, no conjunctivitis. EARS, NOSE, MOUTH, THROAT, and FACE: No sore throat, lymphadenopathy, carotid bruits or deformity. RESPIRATORY: Mild cough wheezes. CARDIOVASCULAR: Positive PND orthopnea and palpitation. GASTROINTESTINAL: No Abd pain, Nausea or vomiting, no Diarrhea or constipation, No GI Bleed, no distention or masses. GENITOURINARY: Decrease urine output with incontinence. INTEGUMENT/BREAST: Back pain and bilateral leg pain and worsening of the left hip. HEMATOLOGIC/LYMPHATIC: Negative for bleed or purpura. MUSCULOSKELTAL: Negative for Myalgia or arthralgia significant pain and discomfort of the lower back area.. NEURLOGICAL: Altered mental status with generalized weakness no focal deficit. BEHAVIORAL/PSYCH: Negative. Slight worsening memory. ENDOCRINE: Negative. Family history: His father age 82 from coronary disease, mother from CVA at age 81, patient had 2 daughter with history of hypertension to sun 1 has type 2 diabetes. Social history: Patient quit smoking over 10 years ago he smoked pack a day for 20 years no ankle abuse he is and has significant other live alone with help of his family regular basis. Patient walk with a cane occasional walker he sleep with CPAP for obstructive sleep apnea was diagnosed years ago. Past Medical History Past Medical History: Asthma, GERD/Reflux, Hyperlipidemia, Hypertension, Osteoarthritis (OA), Prostate Disorder Additional Past Medical History / Comment(s): 07/27/14 enma PE, OTHER HX:RHINITIS,ENLARGED PROSTATE, [place] HEARING AIDS.in past took meds for gerd none now History of Any Multi-Drug Resistant Organisms: None Reported Past Surgical History: Back Surgery, Hernia Repair, Tonsillectomy Additional Past Surgical History / Comment(s): RT INGUINAL HERNIA REPAIR, ORIF LT ANKLE(PLATE AND SCREWS), COLONOSCOPY/EGD, CYSTOCOPY.PROCEDURE ON HIS BACK 02-11-19 "CUT A NERVE FOR RELIEVE PAIN". Past Anesthesia/Blood Transfusion Reactions: No Reported Reaction Past Psychological History: Depression Smoking Status: Never smoker Past Alcohol Use History: Occasional Past Drug Use History: None Reported - Past Family History Father Family Medical History: Coronary Artery Disease (CAD) Additional Family Medical History / Comment(s): either from stroke or mi can't remember Mother Family Medical History: Cancer, CVA/TIA Additional Family Medical History / Comment(s): unsure of what kind Daughter(s) Family Medical History: No Reported History Son(s) Family Medical History: No Reported History Medications and Allergies Home Medications Medication Instructions Recorded Confirmed Type Albuterol Inhaler (Mhu) [Ventolin 1 puff INHALATION RT-Q6H PRN 07/27/14 02/12/18 History Hfa Inhaler (Mhu)] Antiarthritic Combination No.2 900 mg PO DAILY 07/27/14 02/12/18 History [Glucosamine-Chondroitin] Omeprazole [PriLOSEC] 20 mg PO DAILY 07/27/14 02/12/18 History hydrOXYzine HCL [Atarax] 25 mg PO DAILY 07/27/14 02/12/18 History Fluticasone Nasal Tarpley [Flonase 2 spray EA NOSTRIL DAILY #1 box 08/02/14 02/12/18 Rx Nasal Tarpley] Meloxicam [Mobic] 7.5 mg PO DAILY 02/11/18 02/12/18 History methocarbamoL [Robaxin] 750 mg PO DAILY 02/11/18 02/12/18 History Atorvastatin [Lipitor] 40 mg PO HS #30 tablet 02/14/18 Rx Clopidogrel [Plavix] 75 mg PO DAILY #30 tab 02/14/18 Rx amLODIPine [Norvasc] 5 mg PO DAILY #30 tab 02/14/18 Rx hydroCHLOROthiazide 25 mg PO DAILY PRN #30 tablet 02/14/18 02/12/18 Rx lisinopriL [Zestril] 20 mg PO BID #60 tab 02/14/18 Rx Allergies Allergy/AdvReac Type Severity Reaction Status Date / Time No Known Allergies Allergy Verified 02/12/18 08:41 Physical Exam Vitals: Vital Signs Temp Pulse Resp BP Pulse Ox 12/24/19 21:00 82 120 H 142/68 94 L 12/24/19 18:14 98.9 F 78 16 124/64 90 L Intake and Output 12/24/19 12/24/19 12/24/19 06:59 14:59 22:59 Other: Weight 124.738 kg General Appearance: Alert, cooperative with mild confusion mild tachypnea with no respiratory distress. Neck HEENT: Supple, no lymphadenopathy, no thyroid enlargement, no carotid bruits. Lungs: Decreased breath sound at bases specially in the left side positive for rhonchi with mild crackles mild expiratory wheezes. Chest Wall: Decrease expansion with deep inspiration no tenderness and no deformity was found on exam, no costochondral pain or discomfort. Heart: Regular rate and rhythm, S1, S2 positive history positive 2/6 systolic murmur in the apex Back: Symmetric, mild curvature with slight discomfort lumbar spine area with no open sore or area no rash.. Abdomen: Soft, non-tender, bowel sounds active all four quadrants, distention with no sign of obstruction no tenderness rebound or rigidity. Extremities: Extremities 1+ edema worsening of the lower part close to the ankle area bilaterally with significant arthritis mild varicose vein. Pulses: Decreased bilaterally.. Skin: Skin color, texture, tugor normal, no rashes or lesions. Neurologic: Alert oriented with slight confusion cranial nerves II through XII intact, generalized weakness with abnormal balance and gait not been able to ambulate without help. Results CBC & Chem 7: 12/24/19 18:56 12/24/19 18:56 Labs: Abnormal Lab Results - Last 24 Hours (Table) 12/24/19 12/24/19 12/24/19 Range/Units 18:56 18:56 18:56 Plt Count 103 L (150-450) k/uL Lymphocytes # 0.6 L (1.0-4.8) k/uL Sodium 132 L (137-145) mmol/L Carbon Dioxide 18 L (22-30) mmol/L BUN 55 H (9-20) mg/dL Creatinine 1.43 H (0.66-1.25) mg/dL Glucose 106 H (74-99) mg/dL Calcium 8.0 L (8.4-10.2) mg/dL AST 98 H (17-59) U/L Creatine Kinase 1538 H* (55-170) U/L Troponin I 0.048 H* (0.000-0.034) ng/mL Thrombosis Risk Factor Assmnt - DVT/VTE Prophylaxis DVT/VTE Prophylaxis: Pharmacologic Prophylaxis ordered, Mechanical Prophylaxis ordered Assessment and Plan Assessment: 1 altered mental status: Not a clear etiology whether patient had another CVA or TIA or in general just tripped and fell and had complication related to, will continue hydration and supportive care watch patient's carefully. 2 post fall with generalized a bruise no major bone trauma this point. 3 left-sided pneumonia: Most likely community-acquired pneumonia continue Rocephin and azithromycin for now continue O2 and updraft treatment. 4 possible Covid: Testing still pending at this point patient will continue to be on isolation his marker negative at this point if result is positive patient will benefit from being on Remdesivir, and Decadron. 5 acute kidney injury: Continue patient on hydration for now watch for any wor sening symptom with rhabdomyolysis. 6 rhabdomyolysis: CKs up to 1500 continue gentle hydration watch his urine output. 7 elevated troponin: With no sign of acute coronary syndrome this is most likely troponin leak from his rhabdomyolysis and acute kidney injury. 8 valvular heart disease: Patient is known to have mild pulmonary hypertension with mild mitral and tricuspid regurgitation, was seeing cardiology regular basis. 9 chronic reactive airway/mild COPD: Patient can benefit from DuoNeb and O2 at this point. 10 severe GERD: Remain on omeprazole. 11 history of CVA: Patient was on Plavix which was stopped and patient is on aspirin only currently. 12 previous history of PE and DVT was treated previously and off anticoagulation currently. 13 chronic lower back pain post back surgery remain on smaller dose of hydrocodone along with Robaxin and still on meloxicam, and fentanyl patches. 14 hypertension: Remain on lisinopril 20 mg twice a day. Continue amlodipine 5 mg a day. 15 hyperlipidemia: On atorvastatin 40 mg daily. 16 GI prophylaxis: On PPI. 17 DVT prophylaxis: Early mobilization and knee-high SHEREE hose and Venodyne boots. Heparin subcutaneous will be use as well. CODE STATUS: Full code. Admit patient to the inpatient service for more than 2 night stay.
[2019-12-24] MEDS ORDERED: ALBUTEROL HFA INHALER INHALATION PRN (23:00)
[2019-12-25] MEDS: HYDROmorphone 0.5 MG/0.5 ML SYRINGE IVP PRN ×3 (05:33→23:02)
[2019-12-25 06:36] LABS: Basophils % (A) 1 %; Eosinophils % (A) 0 %; HCT 43.1 % (39.0-53.0); HGB 13.9 gm/dL (13.0-17.5); Lymphocytes # (A) 0.6 k/uL (1.0-4.8); Lymphocytes % (A) 13 %; MCH 29.2 pg (25.0-35.0); MCHC 32.3 g/dL (31.0-37.0); MCV 90.4 fL (80.0-100.0); Mean Platelet Volume 8.8; Monocytes # (A) 0.4 k/uL (0-1.0); Monocytes % (A) 8 %; Neutrophils # (A) 3.6 k/uL (1.3-7.7); Neutrophils % (A) 77 %; Platelet Count 136 k/uL (150-450); RBC 4.77 m/uL (4.30-5.90); RDW 13.7 % (11.5-15.5); WBC 4.7 k/uL (3.8-10.6)
[2019-12-25 07:01] LABS: ALT 35 U/L (4-49); AST 91 U/L (17-59); African American GFR (CKD) 49 (>60 ml/min/1.73 sqM); Albumin 3.1 g/dL (3.5-5.0); Albumin/Globulin Ratio 1.1; Alkaline Phosphatase 59 U/L (38-126); Anion Gap 9 mmol/L; Blood Urea Nitrogen 51 mg/dL (9-20); Calcium 7.4 mg/dL (8.4-10.2); Carbon Dioxide 19 mmol/L (22-30); Chloride 106 mmol/L (98-107); Globulin 2.8 g/dL; Glucose 108 mg/dL (74-99); Non-African American GFR(CKD) 42 (>60 ml/min/1.73 sqM); Potassium 4.2 mmol/L (3.5-5.1); Sodium 134 mmol/L (137-145); Total Protein 5.9 g/dL (6.3-8.2)
[2019-12-25] MEDS: HEPARIN SODIUM,PORCINE 5,000 UNIT/ML 1 ML VIAL SQ SCH ×2 (08:02→21:59)
[2019-12-25] MEDS: PANTOPRAZOLE 40 MG TABLET PO SCH (08:02)
[2019-12-25] MEDS: amLODIPine 5 MG TAB PO SCH (08:02)
[2019-12-25] MEDS: lisinopriL 20 MG TAB PO SCH ×2 (08:03→21:59)
[2019-12-25] MEDS: FLUTICASONE 50MCG/SPRAY NASAL 16GM EA NOSTRIL SCH (08:03)
[2019-12-25] MEDS: methocarbamoL 750 MG TAB PO SCH (08:03)
[2019-12-25] MEDS ORDERED: CLOPIDOGREL 75 MG TAB PO SCH (09:00)
--- NOTE | 2019-12-25 11:07 | P.PN ---
Subjective Progress Note Date: 12/25/19 HISTORY OF PRESENT ILLNESS 89-year-old male one of my office patient of known for long time with multiple medical problem who was in the hospital last time back in February 12 for CVA, patient is known to have history of hypertension, hyperlipidemia, chronic kidney disease, chronic lower back pain, atherosclerotic heart disease, obstructive sleep apnea and valvular heart disease who apparently had fell at home and had significant altered mental status could not control and look for help his daughter finally found him on the floor of his house for in known. Of time most likely over 12 hours after he sustained a fall without loss of consciousness or seizure according to him he developed to have significant dyspnea and shortness of breath 911 was called patient brought to the emergency department at [facility] where was seen and evaluated ended up having multiple testing including CT of the brain and cervical spine showed small vessel disease with severe arthritis, chest x-ray showed left lower lobe pneumonia, X-ray with no finding consistent with fracture, CTA showed no evidence of pulmonary embolism but mild pulmonary fibrotic change in sup segmental atelectasis with pneumonia the left side. Patient is known to have history of coagulopathy and blood clot the past was on anticoagulation previously. Patient CK was significantly elevated was diagnosed with rhabdomyolysis acute kidney injury his troponin was mildly elevated as well. Patient was started on hydration started on Rocephin and azithromycin for left sided pneumonia with a? Of Covid vest still pending at this point 12/24: Patient denies any new complaints. COVID-19 testing remains pending. [facility] medicine and cardiology on consult. Repeat blood work reveals CBC with platelet count of 136, lymphocytes 0.6. Sodium 134, CO2 19, BUN 51 and creatinine 1.46. Blood sugar 108. Repeat CK is at 1948. Repeat troponins are 0.052 and 0.074. REVIEW OF SYSTEMS CONSTITUTIONAL: Mildly overweight with mild respiratory distress. Denies fever. EYES: No icterus sclerae, no conjunctivitis. EARS, NOSE, MOUTH, THROAT, and FACE: No sore throat, lymphadenopathy, carotid bruits or deformity. RESPIRATORY: Mild cough wheezes. CARDIOVASCULAR: Positive PND orthopnea and palpitation. GASTROINTESTINAL: No Abd pain, Nausea or vomiting, no Diarrhea or constipation, No GI Bleed, no distention or masses. GENITOURINARY: Decrease urine output with incontinence. INTEGUMENT/BREAST: Back pain and bilateral leg pain and worsening of the left hip. HEMATOLOGIC/LYMPHATIC: Negative for bleed or purpura. MUSCULOSKELTAL: Negative for Myalgia or arthralgia significant pain and discomfort of the lower back area.. NEURLOGICAL: Altered mental status with generalized weakness no focal deficit. BEHAVIORAL/PSYCH: Negative. Slight worsening memory. ENDOCRINE: Negative. PHYSICAL EXAMINATION General Appearance: Alert, cooperative with mild confusion with no respiratory distress. Neck HEENT: Supple, no lymphadenopathy, no thyroid enlargement, no carotid bruits. Lungs: Decreased breath sound at bases specially in the left side positive for r honchi with mild crackles mild expiratory wheezes. Chest Wall: Decrease expansion with deep inspiration no tenderness and no deformity was found on exam, no costochondral pain or discomfort. Heart: Regular rate and rhythm, S1, S2 positive history positive 2/6 systolic murmur in the apex Back: Symmetric, mild curvature with slight discomfort lumbar spine area with no open sore or area no rash.. Abdomen: Soft, non-tender, bowel sounds active all four quadrants, distention with no sign of obstruction no tenderness rebound or rigidity. Extremities: Extremities 1+ edema worsening of the lower part close to the ankle area bilaterally with significant arthritis mild varicose vein. Pulses: Decreased bilaterally.. Skin: Skin color, texture, tugor normal, no rashes or lesions. Neurologic: Alert oriented with slight confusion cranial nerves II through XII intact, generalized weakness with abnormal balance and gait not been able to ambulate without help. ASSESSMENT AND PLAN 1 metabolic encephalopathy of unclear etiology, possibly secondary to pneumonia, Covid pneumonitis, rhabdomyolysis. 2 post fall with generalized a bruise no major bone trauma this point. 3 left-sided pneumonia: Most likely community-acquired pneumonia continue Rocephin and azithromycin for now continue O2 and updraft treatment. 4 possible Covid: Testing still pending at this point patient will continue to be on isolation his marker negative at this point if result is positive patient will benefit from being on Remdesivir, and Decadron. 5 acute kidney injury with rhabdomyolysis. Continue gentle hydration 6 rhabdomyolysis. . 7 elevated troponin: With no sign of acute coronary syndrome this is most likely troponin leak from his rhabdomyolysis and acute kidney injury. Cardiology on consult. 8 valvular heart disease: Patient is known to have mild pulmonary hypertension with mild mitral and tricuspid regurgitation, was seeing cardiology regular basis. 9 chronic reactive airway/mild COPD: Patient can benefit from DuoNeb and O2 at this point. 10 severe GERD: Remain on omeprazole. 11 history of CVA: Patient was on Plavix and 81 mg aspirin. 12 previous history of PE and DVT was treated previously and off anticoagulation currently. 13 chronic lower back pain post back surgery remain on smaller dose of hydrocodone along with Robaxin and still on meloxicam, and fentanyl patches. 14 hypertension: Remain on lisinopril 20 mg twice a day. Continue amlodipine 5 mg a day. 15 hyperlipidemia: On atorvastatin 40 mg daily. 16 GI prophylaxis: On PPI. 17 DVT prophylaxis: Early mobilization and knee-high SHEREE hose and Venodyne boots. Heparin subcutaneous will be use as well. CODE STATUS: Full code. DISCHARGE PLAN Impression and plan of care have been directed as dictated by the signing physician. Cece Cheng nurse practitioner acting as scribe for signing physician. Objective - Vital Signs Vital signs: Vital Signs Temp 98.6 F 12/25/19 07:00 Pulse 80 12/25/19 07:00 Resp 18 12/25/19 07:00 BP 113/68 12/25/19 07:00 Pulse Ox 90 L 12/25/19 07:00 Intake & Output 12/24/19 12/25/19 12/25/19 18:59 06:59 18:59 Weight 124.738 kg 124.738 kg Other: Voiding Method Urinal Diaper Incontinent # Voids 2 - Labs CBC & Chem 7: 12/25/19 05:44 12/25/19 05:44 Labs: Abnormal Lab Results - Last 24 Hours (Table) 12/24/19 12/24/19 12/24/19 Range/Units 18:56 18:56 18:56 Plt Count 103 L (150-450) k/uL Lymphocytes # 0.6 L (1.0-4.8) k/uL Sodium 132 L (137-145) mmol/L Carbon Dioxide 18 L (22-30) mmol/L BUN 55 H (9-20) mg/dL Creatinine 1.43 H (0.66-1.25) mg/dL Glucose 106 H (74-99) mg/dL Calcium 8.0 L (8.4-10.2) mg/dL AST 98 H (17-59) U/L Creatine Kinase 1538 H* (55-170) U/L CK-MB (CK-2) (0.0-2.4) ng/mL Troponin I 0.048 H* (0.000-0.034) ng/mL Total Protein (6.3-8.2) g/dL Albumin (3.5-5.0) g/dL 12/24/19 12/25/19 12/25/19 Range/Units 21:48 01:00 05:44 Plt Count 136 L (150-450) k/uL Lymphocytes # 0.6 L (1.0-4.8) k/uL Sodium (137-145) mmol/L Carbon Dioxide (22-30) mmol/L BUN (9-20) mg/dL Creatinine (0.66-1.25) mg/dL Glucose (74-99) mg/dL Calcium (8.4-10.2) mg/dL AST (17-59) U/L Creatine Kinase (55-170) U/L CK-MB (CK-2) (0.0-2.4) ng/mL Troponin I 0.052 H* 0.074 H* (0.000-0.034) ng/mL Total Protein (6.3-8.2) g/dL Albumin (3.5-5.0) g/dL 12/25/19 12/25/19 Range/Units 05:44 05:44 Plt Count (150-450) k/uL Lymphocytes # (1.0-4.8) k/uL Sodium 134 L (137-145) mmol/L Carbon Dioxide 19 L (22-30) mmol/L BUN 51 H (9-20) mg/dL Creatinine 1.46 H (0.66-1.25) mg/dL Glucose 108 H (74-99) mg/dL Calcium 7.4 L (8.4-10.2) mg/dL AST 91 H (17-59) U/L Creatine Kinase (55-170) U/L CK-MB (CK-2) 5.2 H (0.0-2.4) ng/mL Troponin I (0.000-0.034) ng/mL Total Protein 5.9 L (6.3-8.2) g/dL Albumin 3.1 L (3.5-5.0) g/dL
[2019-12-25] MEDS ORDERED: LEVOFLOXACIN 500MG-D5W PMX 500 MG in DEXTROSE/WATER 1 100ML.BAG IVPB ONE (11:30)
[2019-12-25] MEDS: methylPREDNISolone SOD SUCCI 40 MG/ML 1 ML VIAL IV SCH ×3 (12:32→21:59)
--- NOTE | 2019-12-25 12:32 | ECHOF ---
Referral Reason:abnormal troponins MEASUREMENTS -------- HEIGHT: 157.5 cm WEIGHT: 117.9 kg BP: RVIDd: 4.1 cm (< 3.3) IVSd: 1.4 cm (0.6 - 1.1) LVIDd: 3.1 cm (3.9 - 5.3) LVPWd: 1.4 cm (0.6 - 1.1) IVSs: 1.5 cm LVIDs: 2.9 cm LVPWs: 1.2 cm Ao Diam: 3.6 cm (2.0 - 3.7) AV Cusp: 2.5 cm (1.5 - 2.6) FINDINGS -------- Undetermined rhythm. in spite of using contrast, is very difficult to assess lv function and segmen sumit wall motion abnormalities This was a techncally difficult study with suboptimal views, , Lumason utilized for enhancement of im ages. The left ventricular size is normal. There is moderate concentric left ventricular hypertrophy. O verall left ventricular systolic function is low-normal with, an EF between 50 - 55 %. The right ventricle is moderate to severely enlarged. The left atrial size is normal. The right atrial size is normal. There is mild aortic valve sclerosis. Trace amount of aortic regurgitation. Mild mitral annular calcification present. Mild mitral regurgitation is present. The tricuspid valve was not well visualized. Unable to estimate RVSP due to inadequate TR jet spect ral doppler profile. The pulmonic valve was not well visualized. The aortic root size is normal. Echo free space represents a pericardial fat pad. CONCLUSIONS -------- 1. in spite of using contrast, is very difficult to assess lv function and segmental wall motion abn ormalities 2. This was a techncally difficult study with suboptimal views, , Lumason utilized for enhancement of images. 3. The left ventricular size is normal. 4. There is moderate concentric left ventricular hypertrophy. 5. Overall left ventricular systolic function is low-normal with, an EF between 50 - 55 %. 6. The right ventricle is moderate to severely enlarged. 7. The left atrial size is normal. 8. The right atrial size is normal. 9. There is mild aortic valve sclerosis. 10. Trace amount of aortic regurgitation. 11. Mild mitral annular calcification present. 12. Mild mitral regurgitation is present. 13. The tricuspid valve was not well visualized. 14. Unable to estimate RVSP due to inadequate TR jet spectral doppler profile. 15. The pulmonic valve was not well visualized. 16. The aortic root size is normal. 17. Echo free space represents a pericardial fat pad. COPYMAN: Jaz Duval RDCS
--- NOTE | 2019-12-25 13:16 | P.CRDCN ---
History of Present Illness Consult date: 12/25/19 History of present illness: CHIEF COMPLAINT: Elevated troponin HISTORY OF PRESENT ILLNESS: This is a 89-year old male with a past medical history significant for hypertension, hyperlipidemia, CVA, and PE/DVT. We have been asked to see the patient in consultation for elevated troponin. Patient is admitted to the hospital secondary to fall, rhabdomyolysis, pneumonia, and altered mental status Patient examined at the bedside. Patient reports falling at home and landing on his back. He denies any chest pain, shortness of breath, dizziness, lightheadedness, or palpitations prior to falling. He complains of back pain at the time of examination. He denies chest pain or pressure. Denies shortness of breath. Reports frequent coughing. He denies dizziness or lightheadedness. DIAGNOSTICS: EKG reveals sinus rhythm without signs of acute ischemia Chest xray bilateral pulmonary airspace infiltrates and atelectasis. No heart failure seen. No pneumothorax. Laboratory data: WBC 4.7. Hemoglobin 13.9. Platelet count 136. Sodium 134. Potassium 4.2. BUN 51. Creatinine 1.46. Troponin 0.048. 0.052. 0.074. Current home cardiac medications include aspirin 81 mg, lisinopril 20 mg twice a day, hydrochlorothiazide 25 mg daily, Norvasc 5 mg daily, and Plavix 75 mg daily Echocardiogram completed revealed ejection fraction 50-55%, mild mitral regurgitation, trace aortic regurgitation and mild aortic valve sclerosis. REVIEW OF SYSTEMS: At the time of my exam: CONSTITUTIONAL: Denies fever or chills. Reports back pain HEENT: Denies blurred vision, vision changes, or eye pain. Denies hemoptysis CARDIOVASCULAR: Denies chest pain, orthopnea, PND or palpitations RESPIRATORY: No shortness of breath. Reports coughing GASTROINTESTINAL: Denies abdominal pain. Denies nausea or vomiting. HEMATOLOGIC: Denies bleeding disorders. GENITOURINARY: Denies any blood in urine. SKIN: Denies pruitis. Denies rash. PHYSICAL EXAM: VITAL SIGNS: Reviewed. GENERAL: Well-developed in no acute distress. HEENT: Head is normocephalic. Pupils are equal, round. Sclerae anicteric. Mucous membranes of the mouth are moist. Neck supple. No JVD or thyromegaly LUNGS: Respirations even and unlabored. Lungs with expiratory wheezing and scattered rhonchi noted HEART: Regular rate and rhythm. S1 and S2 heard. Systolic murmur ABDOMEN: Soft. Nondistended. Nontender. EXTREMITIES: Normal range of motion. No clubbing or cyanosis. Peripheral pulses intact. No lower extremity edema NEUROLOGIC: Awake and alert. Oriented x 3. ASSESSMENT: Status post fall with subsequent back pain Left sided pneumonia Acute kidney injury Rhabdomyolysis Abnormal troponin, not suggestive of acute coronary syndrome, suspect secondary to rhabdomyolysis and acute kidney injury History of CVA Hypertension Hyperlipidemia PLAN: Patients troponins are not suggestive of acute coronary syndrome. The patient denies any chest pain or pressure. Suspect abnormal troponins are secondary to rhabdomyolysis and acute kidney injury. No further intervention from a cardiac standpoint. We will follow on an as-needed basis. Please call with questions or concerns. Nurse practitioner note has been reviewed by physician. Signing provider agrees with the documented findings, assessment, and plan of care. Past Medical History Past Medical History: Asthma, GERD/Reflux, Hyperlipidemia, Hypertension, Osteoarthritis (OA), Prostate Disorder Additional Past Medical History / Comment(s): 07/27/14 enma PE, OTHER HX:RHINITIS,ENLARGED PROSTATE, TE-MOAK ENMA HEARING AIDS.in past took meds for gerd none now History of Any Multi-Drug Resistant Organisms: None Reported Past Surgical History: Back Surgery, Hernia Repair, Tonsillectomy Additional Past Surgical History / Comment(s): RT INGUINAL HERNIA REPAIR, ORIF LT ANKLE(PLATE AND SCREWS), COLONOSCOPY/EGD, CYSTOCOPY.PROCEDURE ON HIS BACK 02-11-19 "CUT A NERVE FOR RELIEVE PAIN". Past Anesthesia/Blood Transfusion Reactions: No Reported Reaction Past Psychological History: Depression Smoking Status: Never smoker Past Alcohol Use History: Occasional Past Drug Use History: None Reported - Past Family History Father Family Medical History: Coronary Artery Disease (CAD) Additional Family Medical History / Comment(s): either from stroke or mi can't remember Mother Family Medical History: Cancer, CVA/TIA Additional Family Medical History / Comment(s): unsure of what kind Daughter(s) Family Medical History: No Reported History Son(s) Family Medical History: No Reported History Medications and Allergies Home Medications Medication Instructions Recorded Confirmed Type Omeprazole [PriLOSEC] 20 mg PO DAILY 07/27/14 12/24/19 History hydrOXYzine HCL [Atarax] 25 mg PO DAILY 07/27/14 12/24/19 History Meloxicam [Mobic] 7.5 mg PO DAILY 02/11/18 12/24/19 History methocarbamoL [Robaxin] 750 mg PO DAILY 02/11/18 12/24/19 History Clopidogrel [Plavix] 75 mg PO DAILY #30 tab 02/14/18 12/24/19 Rx amLODIPine [Norvasc] 5 mg PO DAILY #30 tab 02/14/18 12/24/19 Rx lisinopriL [Zestril] 20 mg PO BID #60 tab 02/14/18 12/24/19 Rx Aspirin [Adult Low Dose Aspirin EC] 81 mg PO DAILY 12/24/19 12/24/19 History Atorvastatin [Lipitor] 40 mg PO HS 12/24/19 12/24/19 History Finasteride [Proscar] 5 mg PO DAILY 12/24/19 12/24/19 History Glucosam/Emmanuel-Msm1/C/James/Bosw 1 tab PO DAILY 12/24/19 12/24/19 History [Glucosamine-Chondroitin Tablet] Oxybutynin Chloride 5 mg PO TID 12/24/19 12/24/19 History hydroCHLOROthiazide 25 mg PO DAILY 12/24/19 12/24/19 History Allergies Allergy/AdvReac Type Severity Reaction Status Date / Time No Known Allergies Allergy Verified 12/24/19 23:03 Physical Exam Vitals: Vital Signs Temp Pulse Pulse Resp BP BP Pulse Ox 12/25/19 07:00 98.6 F 80 18 113/68 90 L 12/24/19 23:31 84 18 12/24/19 22:52 98.4 F 84 18 126/73 94 L 12/24/19 22:19 98.7 F 82 16 142/68 94 L 12/24/19 21:00 82 120 H 142/68 94 L 12/24/19 18:14 98.9 F 78 16 124/64 90 L Intake and Output 12/24/19 12/25/19 12/25/19 22:59 06:59 14:59 Intake Total 400 Balance 400 Intake: IV 400 Sodium Chloride 0.9% 1, 400 000 ml @ 50 mls/hr IV . Q20H [facility] Rx#:[id number] Other: Voiding Method Urinal Diaper Incontinent # Voids 2 Weight 124.738 kg Results 12/25/19 05:44 12/25/19 05:44 Cardiac Enzymes 12/24/19 12/24/19 12/24/19 Range/Units 18:56 18:56 21:48 AST 98 H (17-59) U/L CK-MB (CK-2) (0.0-2.4) ng/mL Troponin I 0.048 H* 0.052 H* (0.000-0.034) ng/mL 12/25/19 12/25/19 12/25/19 Range/Units 01:00 05:44 05:44 AST 91 H (17-59) U/L CK-MB (CK-2) 5.2 H (0.0-2.4) ng/mL Troponin I 0.074 H* (0.000-0.034) ng/mL Coagulation 12/24/19 Range/Units 18:56 PT 11.2 (9.0-12.0) sec APTT 28.8 (22.0-30.0) sec CBC 12/24/19 12/25/19 Range/Units 18:56 05:44 WBC 4.8 4.7 (3.8-10.6) k/uL RBC 5.29 4.77 (4.30-5.90) m/uL Hgb 15.8 13.9 (13.0-17.5) gm/dL Hct 47.3 43.1 (39.0-53.0) % Plt Count 103 L 136 L (150-450) k/uL Comprehensive Metabolic Panel 12/24/19 12/25/19 Range/Units 18:56 05:44 Sodium 132 L 134 L (137-145) mmol/L Potassium 4.1 4.2 (3.5-5.1) mmol/L Chloride 103 106 (98-107) mmol/L Carbon Dioxide 18 L 19 L (22-30) mmol/L BUN 55 H 51 H (9-20) mg/dL Creatinine 1.43 H 1.46 H (0.66-1.25) mg/dL Glucose 106 H 108 H (74-99) mg/dL Calcium 8.0 L 7.4 L (8.4-10.2) mg/dL AST 98 H 91 H (17-59) U/L ALT 36 35 (4-49) U/L Alkaline Phosphatase 59 59 (38-126) U/L Total Protein 6.6 5.9 L (6.3-8.2) g/dL Albumin 3.5 3.1 L (3.5-5.0) g/dL Current Medications Generic Name Dose Route Start Last Admin Trade Name Freq PRN Reason Stop Dose Admin Albuterol Sulfate 1 puff 12/24/19 23:00 Albuterol Hfa Inhaler INHALATION RT-Q6H PRN Shortness Of Breath Amlodipine Besylate 5 mg 12/25/19 09:00 12/25/19 08:02 Amlodipine 5 Mg Tab PO 5 mg DAILY SANNA Administration Aspirin 81 mg 12/26/19 09:00 Aspirin 81 Mg PO DAILY SANNA Clopidogrel Bisulfate 75 mg 12/26/19 09:00 Clopidogrel 75 Mg Tab PO DAILY SANNA Finasteride 5 mg 12/26/19 09:00 Finasteride 5 Mg Tab PO DAILY SANNA Fluticasone Propionate 2 spray 12/25/19 09:00 12/25/19 08:03 Fluticasone 50mcg/[employer] Nasal 16gm EA NOSTRIL 2 spray DAILY SANNA Administration Heparin Sodium (Porcine) 5,000 unit 12/25/19 09:00 12/25/19 08:02 Heparin Sodium,Porcine 5,000 Unit/Ml 1 Ml Vial SQ 5,000 unit Q12HR SANNA Administration Hydromorphone HCl 0.5 mg 12/24/19 20:57 12/25/19 10:10 Hydromorphone 0.5 Mg/0.5 Ml Syringe IVP 0.5 mg Q3HR PRN Administration Moderate Pain Sodium Chloride 1,000 mls @ 50 mls/hr 12/24/19 21:00 12/24/19 22:04 Saline 0.9% IV 50 mls/hr .Q20H SANNA Administration Lisinopril 20 mg 12/25/19 09:00 12/25/19 08:03 Lisinopril 20 Mg Tab PO 20 mg BID SNANA Administration Methocarbamol 750 mg 12/25/19 09:00 12/25/19 08:03 Methocarbamol 750 Mg Tab PO 750 mg DAILY SANNA Administration Naloxone HCl 0.2 mg 12/24/19 20:57 Naloxone 0.4 Mg/Ml 1 Ml Vial IV Q2M PRN Opioid Reversal Pantoprazole Sodium 40 mg 12/25/19 09:00 12/25/19 08:02 Pantoprazole 40 Mg Tablet PO 40 mg DAILY SANNA Administration Intake and Output 12/24/19 12/25/19 12/25/19 22:59 06:59 14:59 Intake Total 400 Balance 400 Intake: IV 400 Sodium Chloride 0.9% 1, 400 000 ml @ 50 mls/hr IV . Q20H [facility] Rx#:[id number] Other: Voiding Method Urinal Diaper Incontinent # Voids 2 Weight 124.738 kg 12/25/19 05:44 12/25/19 05:44
--- NOTE | 2019-12-25 14:16 | P.CNPUL ---
History of Present Illness Consult date: 12/25/19 Requesting physician: Prince Bautista Reason for consult: abnormal CXR/CT (Pulmonary fibrotic changes and subsegmental atelectasis) Chief complaint: Status post fall, altered mental status History of present illness: This is an 89-year-old gentleman who follows with Dr. Bautista as his primary care provider. He has a history of hypertension, hyperlipidemia, osteoarthritis, hearing disorder, depression. Lifelong nonsmoker. He was brought into the emergency room yesterday by his daughter after finding him sitting in chair soiled and had not eaten. He states he had taken a fall and was able to crawl to the chair to get himself up. Computed tomography scan of the head reveals no acute intracranial abnormality. CT of the lumbar spine revealed no compression fractures. Some degenerative changes noted. His x-ray revealed bilateral pulmonary airspace infiltrate and atelectasis. No pneumothorax. Pelvis x-ray reveals no fracture. CT angiogram ruled out pulmonary embolism. There is pulmo nary fibrotic changes and subsegmental atelectasis. We are consulted for the same. He is seen today in consultation on the regular medical floor. He is currently resting in bed. Awake and alert. Somewhat slow to respond. He did receive Dilaudid for pain medication earlier this morning. He is quite hard of hearing. He is maintaining O2 saturations in the 90s on 3 L/m per nasal cannula. His been afebrile. Hemodynamically stable. White count 4.7. Hemoglobin 13.9. Sodium 134. Potassium 4.2. Creatinine 1.46. Creatinine kinase 1948. Troponin 0.048, 0.052, 0.074. His been initiated on IV Solu- Medrol, Levaquin. Blood cultures pending. Urine culture pending. CoVID 19 screen pending. Review of Systems ROS unobtainable: due to mental status Past Medical History Past Medical History: Asthma, GERD/Reflux, Hyperlipidemia, Hypertension, Osteoarthritis (OA), Prostate Disorder Additional Past Medical History / Comment(s): 07/27/14 enma PE, OTHER HX:RHINITIS,ENLARGED PROSTATE, [place] [employer] HEARING AIDS.in past took meds for gerd none now History of Any Multi-Drug Resistant Organisms: None Reported Past Surgical History: Back Surgery, Hernia Repair, Tonsillectomy Additional Past Surgical History / Comment(s): RT INGUINAL HERNIA REPAIR, ORIF LT ANKLE(PLATE AND SCREWS), COLONOSCOPY/EGD, CYSTOCOPY.PROCEDURE ON HIS BACK 02-11-19 "CUT A NERVE FOR RELIEVE PAIN". Past Anesthesia/Blood Transfusion Reactions: No Reported Reaction Past Psychological History: Depression Smoking Status: Never smoker Past Alcohol Use History: Occasional Past Drug Use History: None Reported - Past Family History Father Family Medical History: Coronary Artery Disease (CAD) Additional Family Medical History / Comment(s): either from stroke or mi can't remember Mother Family Medical History: Cancer, CVA/TIA Additional Family Medical History / Comment(s): unsure of what kind Daughter(s) Family Medical History: No Reported History Son(s) Family Medical History: No Reported History Medications and Allergies Home Medications Medication Instructions Recorded Confirmed Type Omeprazole [PriLOSEC] 20 mg PO DAILY 07/27/14 12/24/19 History hydrOXYzine HCL [Atarax] 25 mg PO DAILY 07/27/14 12/24/19 History Meloxicam [Mobic] 7.5 mg PO DAILY 02/11/18 12/24/19 History methocarbamoL [Robaxin] 750 mg PO DAILY 02/11/18 12/24/19 History Clopidogrel [Plavix] 75 mg PO DAILY #30 tab 02/14/18 12/24/19 Rx amLODIPine [Norvasc] 5 mg PO DAILY #30 tab 02/14/18 12/24/19 Rx lisinopriL [Zestril] 20 mg PO BID #60 tab 02/14/18 12/24/19 Rx Aspirin [Adult Low Dose Aspirin EC] 81 mg PO DAILY 12/24/19 12/24/19 History Atorvastatin [Lipitor] 40 mg PO HS 12/24/19 12/24/19 History Finasteride [Proscar] 5 mg PO DAILY 12/24/19 12/24/19 History Glucosam/Emmanuel-Msm1/C/James/Bosw 1 tab PO DAILY 12/24/19 12/24/19 History [Glucosamine-Chondroitin Tablet] Oxybutynin Chloride 5 mg PO TID 12/24/19 12/24/19 History hydroCHLOROthiazide 25 mg PO DAILY 12/24/19 12/24/19 History Allergies Allergy/AdvReac Type Severity Reaction Status Date / Time No Known Allergies Allergy Verified 12/24/19 23:03 Physical Exam Vitals: Vital Signs Temp Pulse Pulse Resp BP BP Pulse Ox 12/25/19 07:00 98.6 F 80 18 113/68 90 L 12/24/19 23:31 84 18 12/24/19 22:52 98.4 F 84 18 126/73 94 L 12/24/19 22:19 98.7 F 82 16 142/68 94 L 12/24/19 21:00 82 120 H 142/68 94 L 12/24/19 18:14 98.9 F 78 16 124/64 90 L Intake and Output 12/24/19 12/25/19 12/25/19 22:59 06:59 14:59 Intake Total 400 Balance 400 Intake: IV 400 Sodium Chloride 0.9% 1, 400 000 ml @ 50 mls/hr IV . Q20H [facility] Rx#:[id number] Other: Voiding Method Urinal Diaper Incontinent # Voids 2 Weight 124.738 kg GENERAL EXAM: 89-year-old male patient, on 3 L nasal cannula, appears comfortable in no apparent distress. HEAD: Normocephalic. EYES: Normal reaction of pupils, equal size. NOSE: Clear with pink turbinates. THROAT: No erythema or exudates. NECK: No masses, no JVD. CHEST: No chest wall deformity. LUNGS: Equal air entry with faint end expiratory wheeze, few scattered rhonchi, diminished. CVS: S1 and S2 normal with no audible murmur, regular rhythm. ABDOMEN: No hepatosplenomegaly, normal bowel sounds, no guarding or rigidity. SPINE: No scoliosis or deformity SKIN: No rashes CENTRAL NERVOUS SYSTEM: No focal deficits, tone is normal in all 4 extremities. EXTREMITIES: There is no peripheral edema. No clubbing, no cyanosis. Peripheral pulses are intact. Results - Laboratory Findings CBC and BMP: 12/25/19 05:44 12/25/19 05:44 PT/INR, D-dimer PT 11.2 sec (9.0-12.0) 12/24/19 18:56 INR 1.1 (<1.2) 12/24/19 18:56 Abnormal lab findings: Abnormal Labs 12/24/19 12/24/19 12/24/19 18:56 18:56 18:56 Plt Count 103 L Lymphocytes # 0.6 L Sodium 132 L Carbon Dioxide 18 L BUN 55 H Creatinine 1.43 H Glucose 106 H Calcium 8.0 L AST 98 H Creatine Kinase 1538 H* CK-MB (CK-2) Troponin I 0.048 H* Total Protein Albumin 12/24/19 12/25/19 12/25/19 21:48 01:00 05:44 Plt Count 136 L Lymphocytes # 0.6 L Sodium Carbon Dioxide BUN Creatinine Glucose Calcium AST Creatine Kinase CK-MB (CK-2) Troponin I 0.052 H* 0.074 H* Total Protein Albumin 12/25/19 12/25/19 12/25/19 05:44 05:44 05:44 Plt Count Lymphocytes # Sodium 134 L Carbon Dioxide 19 L BUN 51 H Creatinine 1.46 H Glucose 108 H Calcium 7.4 L AST 91 H Creatine Kinase 1948 H* CK-MB (CK-2) 5.2 H Troponin I Total Protein 5.9 L Albumin 3.1 L - Diagnostic Findings Chest x-ray: image reviewed CT scan - chest: image reviewed Assessment and Plan Assessment: 1 Altered mental status secondary to metabolic encephalopathy of unclear etiology 2 Status post fall with no noted fractures 3 Rhabdomyolysis secondary to above 4 Fibrotic changes and subsegmental atelectasis cannot rule out early pneumonia 5 Acute hypoxic respiratory failure secondary to above 6 Hearing disorder 7 Hypertension 8 History of bilateral PE 9 History of depression 10 Hyperlipidemia Plan: The patient was seen and evaluated by Dr. De La O Chest x-ray, CAT scans and labs reviewed Continue antibiotics for now Continue IV Solu-Medrol, bronchodilators Titrate down the FiO2 as tolerated We will continue to follow and make further recommendations based on his clinical status I, the cosigning physician, performed a history & physical examination of the patient. Lungs sounds with bilateral end expiratory wheeze, scattered rhonchi. Maintaining good O2 saturations in the 90s on 3 L/m per nasal cannula. I discussed the assessment and plan of care with my nurse practitioner, Alessia Tineo. I attest to the above consultation as dictated by her. Time with Patient: Greater than 30
[2019-12-25] MEDS: SODIUM CHLORIDE 0.9% 1,000 ML IV SCH (15:52)
[2019-12-25] MEDS ORDERED: IPRATROPIUM-ALBUTEROL 3 ML NEB INHALATION PRN (15:58)
[2019-12-25] MEDS ORDERED: IPRATROPIUM-ALBUTEROL 3 ML NEB INHALATION SCH (16:00)
[2019-12-25] MEDS ORDERED: FUROSEMIDE 10 MG/ML 4 ML VIAL IV STA (18:23)
[2019-12-25] MEDS: IPRATROPIUM-ALBUTEROL 3 ML NEB INHALATION SCH (19:57)
[2019-12-25 22:26] LABS: Appearance,Urine Cloudy (Clear); Bacteria,Urine Rare /hpf; Bilirubin,Urine Negative (Negative); Blood,Urine Large (Negative); Color,Urine Light Red; Glucose,Urine (UA) Negative (Negative); Hyaline Casts,Urine 13 /lpf (0-2); Ketones,Urine Negative (Negative); Leukocyte Esterase,Urine Negative (Negative); Mucus,Urine Rare /hpf; Nitrite,Urine Negative (Negative); Protein,Urine Trace (Negative); RBC,Urine >182 /hpf (0-5); Specific Gravity,Urine 1.021 (1.001-1.035); Squamous Epithelial Cell,Urine <1 /hpf (0-4); Urobilinogen,Urine <2.0 mg/dL (<2.0); WBC,Urine 5 /hpf (0-5)
[2019-12-26] MEDS: methylPREDNISolone SOD SUCCI 40 MG/ML 1 ML VIAL IV SCH ×2 (07:55→20:22)
[2019-12-26] MEDS: ASPIRIN 81 MG PO SCH (07:56)
[2019-12-26] MEDS: CLOPIDOGREL 75 MG TAB PO SCH (07:57)
[2019-12-26] MEDS: FINASTERIDE 5 MG TAB PO SCH (07:57)
[2019-12-26] MEDS: HEPARIN SODIUM,PORCINE 5,000 UNIT/ML 1 ML VIAL SQ SCH ×2 (07:57→20:22)
[2019-12-26] MEDS: FLUTICASONE 50MCG/SPRAY NASAL 16GM EA NOSTRIL SCH (07:58)
[2019-12-26] MEDS: PANTOPRAZOLE 40 MG TABLET PO SCH (07:58)
[2019-12-26] MEDS: methocarbamoL 750 MG TAB PO SCH (07:59)
[2019-12-26] MEDS: lisinopriL 20 MG TAB PO SCH (08:17)
[2019-12-26] MEDS: amLODIPine 5 MG TAB PO SCH (08:17)
[2019-12-26] MEDS: IPRATROPIUM-ALBUTEROL 3 ML NEB INHALATION SCH ×4 (08:46→20:36)
[2019-12-26 10:24] LABS: African American GFR (CKD) 35.7 (60.0-200.0); Albumin 3.2 g/dL (3.80-4.90); Albumin/Globulin Ratio 1.68 (1.60-3.17); Anion Gap 10.7 mmol/L (4.00-12.00); BUN/Creat Ratio 36.32 Ratio (12.00-20.00); Calcium 7.5 mg/dL (8.7-10.3); Carbon Dioxide 20.3 mmol/L (21.6-31.8); Globulin 1.9 g/dL (1.6-3.3); Non-African American GFR(CKD) 30.8 (60.0-200.0); Potassium 4.8 mmol/L (3.5-5.5); Total Bilirubin 0.7 mg/dL (0.2-1.2); Total Protein 5.1 g/dL (6.2-8.2)
--- NOTE | 2019-12-26 11:34 | XR ---
EXAMINATION TYPE: XR chest 1V portable DATE OF EXAM: 12/26/2019 COMPARISON: Prior chest x-ray and CT 12/24/2019 HISTORY: Shortness of breath, abnormal chest x-ray, follow-up TECHNIQUE: Single frontal view of the chest is obtained. FINDINGS: There is some thickening of the minor fissure. Lung volumes are low. There is no evident p neumothorax. Retrocardiac density persists. There are overlying cardiac leads. Aorta is dense. Widene d mediastinum is again seen. Heart appearance remains enlarged although there is an enlarged fat pad is noted on CT. IMPRESSION: There is basilar atelectasis. Difficult to exclude some minimal pleural fluid
--- NOTE | 2019-12-26 12:10 | P.PN ---
Subjective Progress Note Date: 12/26/19 HISTORY OF PRESENT ILLNESS 89-year-old male one of my office patient of known for long time with multiple medical problem who was in the hospital last time back in February 12 for CVA, patient is known to have history of hypertension, hyperlipidemia, chronic kidney disease, chronic lower back pain, atherosclerotic heart disease, obstructive sleep apnea and valvular heart disease who apparently had fell at home and had significant altered mental status could not control and look for help his daughter finally found him on the floor of his house for in known. Of time most likely over 12 hours after he sustained a fall without loss of consciousness or seizure according to him he developed to have significant dyspnea and shortness of breath 911 was called patient brought to the emergency department at [facility] where was seen and evaluated ended up having multiple testing including CT of the brain and cervical spine showed small vessel disease with severe arthritis, chest x-ray showed left lower lobe pneumonia, X-ray with no finding consistent with fracture, CTA showed no evidence of pulmonary embolism but mild pulmonary fibrotic change in sup segmental atelectasis with pneumonia the left side. Patient is known to have history of coagulopathy and blood clot the past was on anticoagulation previously. Patient CK was significantly elevated was diagnosed with rhabdomyolysis acute kidney injury his troponin was mildly elevated as well. Patient was started on hydration started on Rocephin and azithromycin for left sided pneumonia with a? Of Covid vest still pending at this point 12/24: Patient denies any new complaints. COVID-19 testing remains pending. [facility] medicine and cardiology on consult. Repeat blood work reveals CBC with platelet count of 136, lymphocytes 0.6. Sodium 134, CO2 19, BUN 51 and creatinine 1.46. Blood sugar 108. Repeat CK is at 1948. Repeat troponins are 0.052 and 0.074. 12/25: Echocardiogram reveals EF of 50-55%, moderate concentric left hypertrophy, mild aortic valve sclerosis, trace aortic regurgitation, mild mitral calcification, mild mitral regurgitation. Patient has been seen by cardiology and acute coronary syndrome has been ruled out. Cardiology is now following on an as-needed basis. Patient is also been seen by pulmonary medicine and continued on current medications. Repeat lab work reveals sodium 135, potassium 4.8, chloride 104, CO2 20. BUN 69 creatinine 1.9. AST is improved at 73. CK improved at 1570. Covid testing is pending. Urinalysis revealed blood large, leukoesterase greater than 182, urine bacteria rare. Patient has a condom catheter in place. Repeat chest x-ray reveals basilar a telectasis. Difficult to exclude minimal pleural fluid. Breathing status is slowly improving but continues to have cough and shortness of breath with activity. Solu-Medrol will be decreased frequency to every 12 hours. Plan to continue IV fluids due to worsening creatinine. PT and OT consults will be added. REVIEW OF SYSTEMS CONSTITUTIONAL: Mildly overweight with mild respiratory distress. Denies fever. Denies chills. EYES: No icterus sclerae, no conjunctivitis. EARS, NOSE, MOUTH, THROAT, and FACE: No sore throat, lymphadenopathy, carotid bruits or deformity. RESPIRATORY: Mild cough wheezes-improving. CARDIOVASCULAR: Positive PND orthopnea and palpitation. GASTROINTESTINAL: No Abd pain, Nausea or vomiting, no Diarrhea or constipation, No GI Bleed, no distention or masses. GENITOURINARY: Decrease urine output with incontinence. INTEGUMENT/BREAST: Back pain and bilateral leg pain and worsening of the left hip. HEMATOLOGIC/LYMPHATIC: Negative for bleed or purpura. MUSCULOSKELTAL: Negative for Myalgia or arthralgia significant pain and disco mfort of the lower back area.. NEURLOGICAL: Altered mental status with generalized weakness no focal deficit. BEHAVIORAL/PSYCH: Negative. Slight worsening memory. ENDOCRINE: Negative. PHYSICAL EXAMINATION General Appearance: Alert, cooperative with no respiratory distress. Neck HEENT: Supple, no lymphadenopathy, no thyroid enlargement, no carotid bruits. Lungs: Decreased breath sound at bases specially in the left side positive for rhonchi with mild crackles mild expiratory wheezes. Chest Wall: Decrease expansion with deep inspiration no tenderness and no def ormity was found on exam, no costochondral pain or discomfort. Heart: Regular rate and rhythm, S1, S2 positive history positive 2/6 systolic murmur in the apex Back: Symmetric, mild curvature with slight discomfort lumbar spine area with no open sore or area no rash.. Abdomen: Soft, non-tender, bowel sounds active all four quadrants, distention with no sign of obstruction no tenderness rebound or rigidity. Extremities: Extremities 1+ edema . Pulses: Decreased bilaterally.. Skin: Skin color, texture, tugor normal, no rashes or lesions. Neurologic: Alert oriented, cranial nerves II through XII intact, generalized weaknessp. ASSESSMENT AND PLAN 1 metabolic encephalopathy secondary to pneumonia, Covid pneumonitis, rhabdomyolysis. 2 post fall with generalized a bruise no major bone trauma this point. 3 left-sided pneumonia: Most likely community-acquired pneumonia continue Rocephin and azithromycin for now continue O2 and updraft treatment. 4 possible Covid: Testing still pending at this point patient will continue to be on isolation his marker negative at this point if result is positive patient will benefit from being on Remdesivir, and Decadron. 5 acute kidney injury with rhabdomyolysis. Continue gentle hydration 6 rhabdomyolysis. Recheck CK tomorrow 7 elevated troponin, acute coronary syndrome ruled out. Cardiology consult appreciated. Cardiology has signed off. 8 valvular heart disease: Patient is known to have mild pulmonary hypertension with mild mitral and tricuspid regurgitation, was seeing cardiology regular basis. 9 chronic reactive airway/mild COPD: Patient can benefit from DuoNeb and O2 at this point. 10 severe GERD: Remain on omeprazole. 11 history of CVA: Patient was on Plavix and 81 mg aspirin. 12 previous history of PE and DVT was treated previously and off anticoagulation currently. 13 chronic lower back pain post back surgery remain on smaller dose of hydrocodone along with Robaxin and still on meloxicam, and fentanyl patches. 14 hypertension: Remain on lisinopril 20 mg twice a day. Continue amlodipine 5 mg a day. 15 hyperlipidemia: On atorvastatin 40 mg daily. 16 GI prophylaxis: On PPI. 17 DVT prophylaxis: Early mobilization and knee-high SHEREE hose and Venodyne boots. Heparin subcutaneous will be use as well. CODE STATUS: Full code. DISCHARGE PLAN To be determined. Patient may benefit from subacute rehab. PT and OT have been added. Impression and plan of care have been directed as dictated by the signing physician. Cece Cheng nurse practitioner acting as scribe for signing physician. Objective - Vital Signs Vital signs: Vital Signs Temp 97.8 F 12/26/19 07:00 Pulse 70 12/26/19 07:00 Resp 18 12/26/19 07:00 BP 99/61 12/26/19 07:00 Pulse Ox 90 L 12/26/19 07:00 Intake & Output 12/25/19 12/26/19 12/26/19 18:59 06:59 18:59 Intake Total 400 1200 Output Total 100 Balance 400 1100 Intake: IV 400 200 Sodium Chloride 0.9% 1, 400 200 000 ml @ 50 mls/hr IV . Q20H [facility] Rx#:[id number] Intake, IV Titration 400 Amount Sodium Chloride 0.9% 1, 400 000 ml @ 50 mls/hr IV . Q20H [facility] Rx#:[id number] Oral 600 Output: Urine 100 Other: # Voids 1 - Labs CBC & Chem 7: 12/25/19 05:44 12/26/19 05:35 Labs: Abnormal Lab Results - Last 24 Hours (Table) 12/25/19 12/25/19 Range/Units 05:44 21:56 Creatine Kinase 1948 H* (55-170) U/L Urine Protein Trace H (Negative) Urine Blood Large H (Negative) Urine RBC >182 H (0-5) /hpf Urine Bacteria Rare H (None) /hpf Hyaline Casts 13 H (0-2) /lpf Urine Mucus Rare H (None) /hpf Microbiology - Last 24 Hours (Table) 12/24/19 21:27 Blood Culture - Preliminary Blood No Growth after 24 hours
[2019-12-26] MEDS ORDERED: LEVOFLOXACIN 250MG-D5W PMX 250 MG in DEXTROSE/WATER 1 50ML.BAG IVPB SCH (13:00)
[2019-12-26] MEDS: SODIUM CHLORIDE 0.9% 1,000 ML IV SCH (14:01)
--- NOTE | 2019-12-26 14:27 | P.PN ---
Subjective Progress Note Date: 12/26/19 Principal diagnosis: abnormal Chest x-ray This is an 89-year-old gentleman who follows with Dr. Bautista as his primary care provider. He has a history of hypertension, hyperlipidemia, osteoarthritis, hearing disorder, depression. Lifelong nonsmoker. He was brought into the [facility] room yesterday by his daughter after finding him sitting in chair soiled and had not eaten. He states he had taken a fall and was able to crawl to the chair to get himself up. Computed tomography scan of the head reveals no acute intracranial abnormality. CT of the lumbar spine revealed no compression fractures. Some degenerative changes noted. His x-ray revealed bilateral pulmonary airspace infiltrate and atelectasis. No pneumothorax. Pelvis x-ray reveals no fracture. CT angiogram ruled out pulmonary embolism. There is pulmonary fibrotic changes and subsegmental atelectasis. We are consulted for the same. He is seen today in consultation on the regular medical floor. He is currently resting in bed. Awake and alert. Somewhat slow to respond. He did receive Dilaudid for pain medication earlier this morning. He is quite hard of hearing. He is maintaining O2 saturations in the 90s on 3 L/m per nasal cannula. His been afebrile. Hemodynamically stable. White count 4.7. Hemoglobin 13.9. Sodium 134. Potassium 4.2. Creatinine 1.46. Creatinine kinase 1948. Troponin 0.048, 0.052, 0.074. His been initiated on IV Solu- Medrol, Levaquin. Blood cultures pending. Urine culture pending. CoVID 19 screen pending. On 12/26/2019 patient seen in follow-up on general medical surgical floor. Patient was given a dose of Lasix yesterday, was given breathing treatments for wheezing, his had no fever overnight , his Covid 19 testing is still pending. Follow-up chest x-ray has been reviewed showing bibasilar atelectasis. Breathing has improved somewhat, has a persistent cough and exertional dyspnea, but has had no acute events overnight. Patient remains on Levaquin for empiric coverage, IV steroids and breathing treatments, one dose of IV Lasix was given yesterday, had fluid balance is difficult to estimate, over on today's labs his creatinine did slightly worsened and is up to 1.9 at today's labs. His CK is coming down, down to 1570. The patient continues on IV hydration currently at 75 ML per hour, Objective - Vital Signs Vital signs: Vital Signs Temp 97.9 F 12/26/19 14:06 Pulse 77 12/26/19 14:06 Resp 22 12/26/19 14:06 BP 103/64 12/26/19 14:06 Pulse Ox 91 L 12/26/19 14:06 Intake & Output 12/25/19 12/26/19 12/26/19 18:59 06:59 18:59 Intake Total 400 1200 240 Output Total 100 Balance 400 1100 240 Intake: IV 400 200 Sodium Chloride 0.9% 1, 400 200 000 ml @ 50 mls/hr IV . Q20H [facility] Rx#:[id number] Intake, IV Titration 400 Amount Sodium Chloride 0.9% 1, 400 000 ml @ 50 mls/hr IV . Q20H [facility] Rx#:[id number] Oral 600 240 Output: Urine 100 Other: Voiding Method Urinal Diaper Incontinent # Voids 1 - Exam GENERAL EXAM: Alert, very pleasant, 81-year-old white male on 5 L of oxygen and pulse ox 91%, comfortable in no apparent distress. HEAD: Normocephalic/atraumatic. EYES: Normal reaction of pupils, equal size. Conjunctiva pink, sclera white. NOSE: Clear with pink turbinates. THROAT: No erythema or exudates. NECK: No masses, no JVD, no thyroid enlargement, no adenopathy. CHEST: No chest wall deformity. Symmetrical expansion. LUNGS: Equal air entry with minimal wheezing CVS: Regular rate and rhythm, normal S1 and S2, no gallops, no murmurs, no rubs ABDOMEN: Soft, nontender. No hepatosplenomegaly, normal bowel sounds, no guarding or rigidity. EXTREMITIES: No clubbing, no edema, no cyanosis, 2+ pulses and upper and lower extremities. MUSCULOSKELETAL: Muscle strength and tone normal. SPINE: No scoliosis or deformity SKIN: No rashes CENTRAL NERVOUS SYSTEM: Alert and oriented -3. No focal deficits, tone is normal in all 4 extremities. PSYCHIATRIC: Alert and oriented -3. Appropriate affect. Intact judgment and insight. - Labs CBC & Chem 7: 12/25/19 05:44 12/26/19 05:35 Labs: Abnormal Lab Results - Last 24 Hours (Table) 12/25/19 12/26/19 Range/Units 21:56 05:35 Carbon Dioxide 20.3 L (21.6-31.8) mmol/L BUN 69.0 H (9.0-27.0) mg/dL Creatinine 1.9 H (0.6-1.5) mg/dL Est GFR (CKD-EPI)AfAm 35.7 L (60.0-200.0) Est GFR (CKD-EPI)NonAf 30.8 L (60.0-200.0) BUN/Creatinine Ratio 36.32 H (12.00-20.00) Ratio Glucose 144 H (70-110) mg/dL Calcium 7.5 L (8.7-10.3) mg/dL AST 73 H (14-35) U/L Creatine Kinase 1570 H* (35-257) U/L Total Protein 5.1 L (6.2-8.2) g/dL Albumin 3.20 L (3.80-4.90) g/dL Urine Protein Trace H (Negative) Urine Blood Large H (Negative) Urine RBC >182 H (0-5) /hpf Urine Bacteria Rare H (None) /hpf Hyaline Casts 13 H (0-2) /lpf Urine Mucus Rare H (None) /hpf Microbiology - Last 24 Hours (Table) 12/24/19 21:27 Blood Culture - Preliminary Blood No Growth after 24 hours Assessment and Plan Plan: Assessment: #1. Altered mental status secondary to metabolic encephalopathy of unclear etiology #2. Acute kidney injury #3. Rhabdomyolysis #4. Status post fall with no noted fractures #5. Fibrotic changes and subsegmental atelectasis cannot rule out early pneumonia #6. Acute hypoxic respiratory failure secondary to above #7. Hearing disorder #8. Hypertension #9. History of bilateral pulmonary embolism #10. Depression #11. Hyperlipidemia Plan: Covid 19 testing is still pending, patient has been afebrile, continue empiric coverage, has been worsening of kidney function, continue IV hydration, CK is improving, and continue breathing treatments and antibiotics and steroids, we'll continue to follow I performed a history & physical examination of the patient and discussed their management with my nurse practitioner, Latosha Jaramillo. I reviewed the nurse practitioner's note and agree with the documented findings and plan of care. Lung sounds are positive for diminished breath sounds. The findings and the impression was discussed with the patient. I attest to the documentation by the nurse practitioner. Time with Patient: Less than 30
--- NOTE | 2019-12-26 17:05 | CDI ---
Documentation Clarification Form Date: 12/26/2019 04:44:35 PM From: Noreen So RN, CCDS Admit Date: 12/24/2019 09:01:00 PM Patient Name: Yusuf Hansen Visit Number: [id number] Discharge Date: ATTENTION: The Clinical Documentation Specialists (CDI) and [facility] Coding Staff appreciate your assistance in clarifying documentation. Please respond to the clarification below the line at the bottom and electronically sign. The CDI & [facility] Coding staff will review the response and follow-up if needed. Please note: Queries are made part of the Legal Health Record. If you have any questions, please contact the author of this message via ITS. Dr. Prince Bautista Please render your impression on the etiology of the rhabdomyolysis. History/Risk Factors: Falls, Hypertension Asthma, Clinical Indicators: 89-year-old male who present to ED on 12/23 after a mechanical fall. He was unable to get up from the floor. He was found on the floor for unknown amount of time per H/P most likely over 12 hours. He had mental status changes. 12/23 Vital signs 124/64 78 16 98.8 90 % RA 12/23 Labs: CPK 1538, NA+ 132, BUN 55, Creatinine 1.43, Troponin I 0.048 12/23 Ct Brain: no acute intracranial abnormality Treatment: .9NS 1,000 IV fluid bolus then 75 mls/hr Monitor renal function, CPK daily (comprehensive metabolic panel daily) Monitor Urine output Physical therapy consult (debilitation) In your professional opinion, can you please clarify the etiology of the condition? Traumatic rhabdomyolysis due to fall xx Traumatic rhabdomyolysis due to prolonged immobility Non traumatic rhabdomyolysis due to medication (please specify) Non traumatic rhabdomyolysis due to infection (please specify) Other, please specify Unable to determine (Last Revision: February 2019) MTDD
[2019-12-26] MEDS: HYDROmorphone 0.5 MG/0.5 ML SYRINGE IVP PRN (19:00)
[2019-12-27] MEDS: HYDROmorphone 0.5 MG/0.5 ML SYRINGE IVP PRN ×3 (00:26→22:24)
[2019-12-27] MEDS: SODIUM CHLORIDE 0.9% 1,000 ML IV SCH ×2 (02:00→15:10)
[2019-12-27] MEDS ORDERED: ALBUTEROL HFA INHALER INHALATION PRN (07:36)
[2019-12-27] MEDS: methocarbamoL 750 MG TAB PO SCH (07:41)
[2019-12-27] MEDS: FINASTERIDE 5 MG TAB PO SCH (07:41)
[2019-12-27] MEDS: CLOPIDOGREL 75 MG TAB PO SCH (07:42)
[2019-12-27] MEDS: FLUTICASONE 50MCG/SPRAY NASAL 16GM EA NOSTRIL SCH (07:42)
[2019-12-27] MEDS: HEPARIN SODIUM,PORCINE 5,000 UNIT/ML 1 ML VIAL SQ SCH (07:42)
[2019-12-27] MEDS: ASPIRIN 81 MG PO SCH (07:42)
[2019-12-27] MEDS: amLODIPine 5 MG TAB PO SCH (07:43)
[2019-12-27] MEDS: PANTOPRAZOLE 40 MG TABLET PO SCH (07:43)
[2019-12-27] MEDS: methylPREDNISolone SOD SUCCI 40 MG/ML 1 ML VIAL IV SCH (07:43)
[2019-12-27 09:08] LABS: ALT 30 U/L (4-49); AST 71 U/L (17-59); African American GFR (CKD) 43 (>60 ml/min/1.73 sqM); Albumin 2.9 g/dL (3.5-5.0); Albumin/Globulin Ratio 1.1; Alkaline Phosphatase 52 U/L (38-126); Anion Gap 5 mmol/L; Blood Urea Nitrogen 72 mg/dL (9-20); Calcium 7.6 mg/dL (8.4-10.2); Carbon Dioxide 21 mmol/L (22-30); Chloride 107 mmol/L (98-107); Creatine Kinase 885 U/L (55-170); Globulin 2.7 g/dL; Glucose 119 mg/dL (74-99); Non-African American GFR(CKD) 37 (>60 ml/min/1.73 sqM); Potassium 4.8 mmol/L (3.5-5.1); Sodium 133 mmol/L (137-145); Total Bilirubin 0.8 mg/dL (0.2-1.3); Total Protein 5.6 g/dL (6.3-8.2)
[2019-12-27] MEDS: ALBUTEROL HFA INHALER INHALATION SCH ×4 (09:37→20:40)
[2019-12-27] MEDS ORDERED: ENOXAPARIN 40 MG/0.4 ML SYRINGE SQ SCH (10:45)
[2019-12-27] MEDS ORDERED: REMDESIVIR (EUA) 200 MG in SODIUM CHLORIDE 0.9% 250 ML IVPB ONE (11:30)
[2019-12-27] MEDS: dexAMETHasone 2 MG TAB PO SCH (11:46)
[2019-12-27] MEDS: ZINC SULFATE 220 MG CAP PO SCH (11:46)
[2019-12-27] MEDS: ASCORBIC ACID 500 MG TAB PO SCH (11:46)
[2019-12-27] MEDS: CHOLECALCIFEROL 1,000 UNIT TAB PO SCH (11:46)
--- NOTE | 2019-12-27 12:09 | P.PN ---
Subjective Progress Note Date: 12/27/19 Principal diagnosis: Altered mental status secondary to metabolic encephalopathy This is an 89-year-old gentleman who follows with Dr. Bautista as his primary care provider. He has a history of hypertension, hyperlipidemia, osteoarthritis, hearing disorder, depression. Lifelong nonsmoker. He was brought into the emergency room yesterday by his daughter after finding him sitting in chair soiled and had not eaten. He states he had taken a fall and was able to crawl to the chair to get himself up. Computed tomography scan of the head reveals no acute intracranial abnormality. CT of the lumbar spine revealed no compression fractures. Some degenerative changes noted. His x-ray revealed bilateral pulmonary airspace infiltrate and atelectasis. No pneumothorax. Pelvis x-ray reveals no fracture. CT angiogram ruled out pulmonary embolism. There is pulmonary fibrotic changes and subsegmental atelectasis. We are consulted for the same. He is seen today in consultation on the regular medical floor. He is currently resting in bed. Awake and alert. Somewhat slow to respond. He did receive Dilaudid for pain medication earlier this morning. He is quite hard of hearing. He is maintaining O2 saturations in the 90s on 3 L/m per nasal cannula. His been afebrile. Hemodynamically stable. White count 4.7. Hemoglobin 13.9. Sodium 134. Potassium 4.2. Creatinine 1.46. Creatinine kinase 1948. Troponin 0.048, 0.052, 0.074. His been initiated on IV Solu-Medr ol, Levaquin. Blood cultures pending. Urine culture pending. CoVID 19 screen pending. On 12/26/2019 patient seen in follow-up on general medical surgical floor. Patient was given a dose of Lasix yesterday, was given breathing treatments for wheezing, his had no fever overnight , his Covid 19 testing is still pending. Follow-up chest x-ray has been reviewed showing bibasilar atelectasis. Keira athing has improved somewhat, has a persistent cough and exertional dyspnea, but has had no acute events overnight. Patient remains on Levaquin for empiric coverage, IV steroids and breathing treatments, one dose of IV Lasix was given yesterday, had fluid balance is difficult to estimate, over on today's labs his creatinine did slightly worsened and is up to 1.9 at today's labs. His CK is coming down, down to 1570. The patient continues on IV hydration currently at 75 ML per hour, The patient is seen today 12/27/2019 in follow-up on the regular medical floor. He is currently awake and alert. He is currently afebrile. Hemodynamically stable. He is now up to 15 L high flow nasal cannula to maintain O2 saturations in the 90s. Yesterday's chest x-ray revealed basilar atelectasis. Blood culture reveals no growth. Sodium 133. Potassium 4.8. Creatinine 1.64. Creatinine kinase 885. D-dimer 8.49. Carrion virus detected now. He will be initiated on REemdesivir, vitamin C, vitamin D, melatonin, Pepcid, zinc and Lovenox. Continue Solu-Medrol, oral Levaquin, bronchodilators. 0.9 normal saline at 75 ML's per hour. Objective - Vital Signs Vital signs: Vital Signs Temp 98 F 12/27/19 07:23 Pulse 75 12/27/19 07:23 Resp 18 12/27/19 07:23 BP 104/67 12/27/19 07:23 Pulse Ox 92 L 12/27/19 09:59 Intake & Output 12/26/19 12/27/19 12/27/19 18:59 06:59 18:59 Intake Total 240 100 Output Total 475 400 Balance -235 -300 Intake: Oral 240 100 Output: Urine 475 400 Other: Voiding Method Urinal Diaper Incontinent - Exam GENERAL EXAM: Alert, very pleasant, 81-year-old male patient on 15 L of high flow oxygen and pulse ox 92%, comfortable in no apparent distress. HEAD: Normocephalic/atraumatic. EYES: Normal reaction of pupils, equal size. Conjunctiva pink, sclera white. NOSE: Clear with pink turbinates. THROAT: No erythema or exudates. NECK: No masses, no JVD, no thyroid enlargement, no adenopathy. CHEST: No chest wall deformity. Symmetrical expansion. LUNGS: Equal air entry with minimal wheezing, bilateral scattered rhonchi CVS: Regular rate and rhythm, normal S1 and S2, no gallops, no murmurs, no rubs ABDOMEN: Soft, nontender. No hepatosplenomegaly, normal bowel sounds, no guarding or rigidity. EXTREMITIES: No clubbing, no edema, no cyanosis, 2+ pulses and upper and lower extremities. MUSCULOSKELETAL: Muscle strength and tone normal. SPINE: No scoliosis or deformity SKIN: No rashes CENTRAL NERVOUS SYSTEM: No focal deficits, tone is normal in all 4 extremities. PSYCHIATRIC: Alert and oriented -3. Appropriate affect. Intact judgment and insight. - Labs CBC & Chem 7: 12/25/19 05:44 12/27/19 06:15 Labs: Abnormal Lab Results - Last 24 Hours (Table) 12/24/19 12/27/19 12/27/19 Range/Units 22:22 06:15 10:58 D-Dimer 8.49 H (<0.60) mg/L FEU Sodium 133 L (137-145) mmol/L Carbon Dioxide 21 L (22-30) mmol/L BUN 72 H (9-20) mg/dL Creatinine 1.64 H (0.66-1.25) mg/dL Glucose 119 H (74-99) mg/dL Calcium 7.6 L (8.4-10.2) mg/dL AST 71 H (17-59) U/L Creatine Kinase 885 H (55-170) U/L Total Protein 5.6 L (6.3-8.2) g/dL Albumin 2.9 L (3.5-5.0) g/dL Coronavirus (PCR) Detected A (Not Detected) Microbiology - Last 24 Hours (Table) 12/24/19 21:27 Blood Culture - Preliminary Blood No Growth after 48 hours Assessment and Plan Assessment: 1 Acute hypoxic respiratory failure secondary to CovVID 19 pneumonitis 2 Altered mental status and status post fall with no noted fractures 3 Rhabdomyolysis secondary to above 4 Fibrotic changes and subsegmental atelectasis cannot rule out early pneumonia 5 Acute hypoxic respiratory failure secondary to above 6 Hearing disorder 7 Hypertension 8 History of bilateral PE 9 History of depression 10 Hyperlipidemia Plan: The patient was seen and evaluated by Dr. De La O The patient did test positive for carotid 19 Initiate Remdesivir, Lovenox, vitamin A, vitamin C, Pepcid, zinc, melatonin Continue IV Solu-Medrol, bronchodilators Titrate down the FiO2 as tolerated Repeat chest x-ray in a.m. Continue isolation precautions We will continue to follow and make further recommendations based on his clini eran status I, the cosigning physician, performed a history & physical examination of the patient. Lungs sounds with bilateral end expiratory wheeze, scattered rhonchi. Maintaining good O2 saturations in the 90s on 15 L/m per high flow nasal cannula. I discussed the assessment and plan of care with my nurse practitioner, Alessia Tineo. I attest to the above note as dictated by her.
--- NOTE | 2019-12-27 12:13 | P.PN ---
Subjective Progress Note Date: 12/27/19 Principal diagnosis: Covered pneumonia HISTORY OF PRESENT ILLNESS 89-year-old male one of my office patient of known for long time with multiple medical problem who was in the hospital last time back in February 12 for CVA, patient is known to have history of hypertension, hyperlipidemia, chronic kidney disease, chronic lower back pain, atherosclerotic heart disease, obstructive sleep apnea and valvular heart disease who apparently had fell at home and had significant altered mental status could not control and look for help his daughter finally found him on the floor of his house for in known. Of time most likely over 12 hours after he sustained a fall without loss of consciousness or seizure according to him he developed to have significant dyspnea and shortness of breath 911 was called patient brought to the emergency department at [facility] where was seen and evaluated ended up having multiple testing including CT of the brain and cervical spine showed small vessel disease with severe arthritis, chest x-ray showed left lower lobe pneumonia, X-ray with no finding consistent with fracture, CTA showed no evidence of pulmonary embolism but mild pulmonary fibrotic change in sup segmental atelectasis with pneumonia the left side. Angela ent is known to have history of coagulopathy and blood clot the past was on anticoagulation previously. Patient CK was significantly elevated was diagnosed with rhabdomyolysis acute kidney injury his troponin was mildly elevated as well. Patient was started on hydration started on Rocephin and azithromycin for left sided pneumonia with a? Of Covid vest still pending at this point 12/24: Patient denies any new complaints. COVID-19 testing remains pending. However medicine and cardiology on consult. Repeat blood work reveals CBC with platelet count of 136, lymphocytes 0.6. Sodium 134, CO2 19, BUN 51 and creatinine 1.46. Blood sugar 108. Repeat CK is at 1948. Repeat troponins are 0.052 and 0.074. 12/25: Echocardiogram reveals EF of 50-55%, moderate concentric left hypertrophy, mild aortic valve sclerosis, trace aortic regurgitation, mild mitral calcification, mild mitral regurgitation. Patient has been seen by cardiology and acute coronary syndrome has been ruled out. Cardiology is now following on an as-needed basis. Patient is also been seen by pulmonary medicine and continued on current medications. Repeat lab work reveals sodium 135, potassium 4.8, chloride 104, CO2 20. BUN 69 creatinine 1.9. AST is improved at 73. CK improved at 1570. Covid testing is pending. Urinalysis revealed blood large, leukoesterase greater than 182, urine bacteria rare. Patient has a condom catheter in place. Repeat chest x-ray reveals basilar atelectasis. Difficult to exclude minimal pleural fluid. Breathing status is slowly improving but continues to have cough and shortness of breath with activity. Solu-Medrol will be decreased frequency to every 12 hours. Plan to continue IV fluids due to worsening creatinine. PT and OT consults will be added. 12/26, Covid was positive, on remdesivir still with shortness of breath, rhonchi, diminished appetite,, patient denies any aspiration, no diarrhea, no fever, Hernadez catheter draining clear urine, pulmonary following, on Solu-Medrol now switched to oral dexamethasone and vitamin C zinc, we will add Mucinex, maintained on IV fluids, creatinine is monitored closely and decrease amlodipine to 2.5 secondary to low blood pressures, nutritional supplementation with ensure. REVIEW OF SYSTEMS CONSTITUTIONAL: Mildly overweight with mild respiratory distress. Denies fever. Denies chills. EYES: No icterus sclerae, no conjunctivitis. EARS, NOSE, MOUTH, THROAT, and FACE: No sore throat, lymphadenopathy, carotid bruits or deformity. RESPIRATORY: Mild cough wheezes-improving. CARDIOVASCULAR: Positive PND orthopnea and palpitation. GASTROINTESTINAL: No Abd pain, Nausea or vomiting, no Diarrhea or constipation, No GI Bleed, no distention or masses. GENITOURINARY: Decrease urine output with incontinence. INTEGUMENT/BREAST: Back pain and bilateral leg pain and worsening of the left hip. HEMATOLOGIC/LYMPHATIC: Negative for bleed or purpura. MUSCULOSKELTAL: Negative for Myalgia or arthralgia significant pain and discomfort of the lower back area.. NEURLOGICAL: Altered mental status with generalized weakness no focal deficit. BEHAVIORAL/PSYCH: Negative. Slight worsening memory. ENDOCRINE: Negative. Objective - Vital Signs Vital signs: Vital Signs Temp 98 F 12/27/19 07:23 Pulse 75 12/27/19 07:23 Resp 18 12/27/19 07:23 BP 104/67 12/27/19 07:23 Pulse Ox 92 L 12/27/19 09:59 Intake & Output 12/26/19 12/27/19 12/27/19 18:59 06:59 18:59 Intake Total 240 100 Output Total 475 400 Balance -235 -300 Intake: Oral 240 100 Output: Urine 475 400 Other: Voiding Method Urinal Urinal Diaper Diaper Incontinent Incontinent - Constitutional General appearance: Present: cooperative, mild distress, no acute distress - EENT Eyes: Present: anicteric sclerae, EOMI, PERRLA, normal appearance ENT: Present: hard of hearing, NA/AT, normal oropharynx - Neck Neck: Present: normal ROM - Respiratory Respiratory: bilateral: rhonchi, prolonged inspiration, negative: CTA, wheezing - Cardiovascular Rhythm: regular Heart sounds: normal: S1, S2 Abnormal Heart Sounds: Absent: systolic murmur, diastolic murmur, rub, S3 Gallop, S4 Gallop, click, other - Gastrointestinal General gastrointestinal: Present: normal bowel sounds, soft - Integumentary Integumentary: Present: decreased turgor, normal - Neurologic Neurologic: Present: CNII-XII intact - Musculoskeletal Musculoskeletal: Present: generalized weakness - Psychiatric Psychiatric: Present: A&O x's 3 - Labs CBC & Chem 7: 12/25/19 05:44 12/27/19 06:15 Labs: Abnormal Lab Results - Last 24 Hours (Table) 12/24/19 12/27/19 12/27/19 Range/Units 22:22 06:15 10:58 D-Dimer 8.49 H (<0.60) mg/L FEU Sodium 133 L (137-145) mmol/L Carbon Dioxide 21 L (22-30) mmol/L BUN 72 H (9-20) mg/dL Creatinine 1.64 H (0.66-1.25) mg/dL Glucose 119 H (74-99) mg/dL Calcium 7.6 L (8.4-10.2) mg/dL AST 71 H (17-59) U/L Creatine Kinase 885 H (55-170) U/L Total Protein 5.6 L (6.3-8.2) g/dL Albumin 2.9 L (3.5-5.0) g/dL Coronavirus (PCR) Detected A (Not Detected) Microbiology - Last 24 Hours (Table) 12/24/19 21:27 Blood Culture - Preliminary Blood No Growth after 48 hours Assessment and Plan Assessment: ASSESSMENT AND PLAN 1 metabolic encephalopathy secondary to pneumonia, Covid pneumonitis, rhabdomyolysis. 2 post fall with generalized a bruise no major bone trauma this point. 3 left-sided pneumonia: Most likely community-acquired pneumonia continue Rocephin and azithromycin for now continue O2 and updraft treatment. 4 possible Covid: Testing still pending at this point patient will continue to be on isolation his marker negative at this point if result is positive patient will benefit from being on Remdesivir, and Decadron. 5 acute kidney injury with rhabdomyolysis. Continue gentle hydration 6 rhabdomyolysis. Recheck CK tomorrow 7 elevated troponin, acute coronary syndrome ruled out. Cardiology consult appreciated. Cardiology has signed off. 8 valvular heart disease: Patient is known to have mild pulmonary hypertension with mild mitral and tricuspid regurgitation, was seeing cardiology regular basis. 9 chronic reactive airway/mild COPD: Patient can benefit from DuoNeb and O2 at this point. 10 severe GERD: Remain on omeprazole. 11 history of CVA: Patient was on Plavix and 81 mg aspirin. 12 previous history of PE and DVT was treated previously and off anticoagulation currently. 13 chronic lower back pain post back surgery remain on smaller dose of hydrocodone along with Robaxin and still on meloxicam, and fentanyl patches. 14 hypertension: Remain on lisinopril 20 mg twice a day. Continue amlodipine 5 mg a day. 15 hyperlipidemia: On atorvastatin 40 mg daily. 16 GI prophylaxis: On PPI. 17 DVT prophylaxis: Early mobilization and knee-high SHEREE hose and Venodyne boots. Heparin subcutaneous will be use as well. CODE STATUS: Full code. DISCHARGE PLAN To be determined. Patient may benefit from subacute rehab. PT and OT have been added. Plan: SSESSMENT AND PLAN 1 metabolic encephalopathy secondary to pneumonia, Covid pneumonitis, rhabdomyolysis. 2 post fall with generalized a bruise no major bone trauma this point. 3 left-sided pneumonia: Covid pneumonitis possible community-acquired pneumonia continue Rocephin and azithromycin for now continue O2 and updraft treatment. 4 Covid: t will continue to be on isolation on Remdesivir, and Decadron. 5 acute kidney injury with rhabdomyolysis. Continue gentle hydration 6 rhabdomyolysis trending downward, continue to monitor, IV fluids 7 elevated troponin, acute coronary syndrome ruled out. Cardiology consult appreciated. Cardiology has signed off. 8 valvular heart disease: Patient is known to have mild pulmonary hypertension with mild mitral and tricuspid regurgitation, was seeing cardiology regular basis. 9 chronic reactive airway/mild COPD: Patient can benefit from DuoNeb and O2 at this point. 10 severe GERD: Remain on omeprazole. 11 history of CVA: Patient was on Plavix and 81 mg aspirin. 12 previous history of PE and DVT was treated previously and off anticoagulation currently. 13 chronic lower back pain post back surgery remain on smaller dose of hydrocodone along with Robaxin and still on meloxicam, and fentanyl patches. 14 hypertension: Remain on lisinopril 20 mg twice a day. Continue amlodipine 5 mg a day. 15 hyperlipidemia: On atorvastatin 40 mg daily. 16 GI prophylaxis: On PPI. 17 DVT prophylaxis: Early mobilization and knee-high SHEREE hose and Venodyne boots. Heparin subcutaneous will be use as well. CODE STATUS: Full code.
[2019-12-27] MEDS: LEVOFLOXACIN 250 MG TAB PO SCH (15:10)
[2019-12-27] MEDS: guaiFENesin 600 MG TABLET.ER PO SCH ×2 (15:11→20:18)
[2019-12-27] MEDS: MELATONIN 5 MG TABLET PO SCH (20:18)
[2019-12-27] MEDS: ENOXAPARIN 60 MG/0.6 ML SYRINGE SQ SCH (20:18)
[2019-12-27] MEDS ORDERED: FUROSEMIDE 10 MG/ML 4 ML VIAL IV STA (22:14)
[2019-12-28] MEDS: HYDROmorphone 0.5 MG/0.5 ML SYRINGE IVP PRN ×2 (02:09→19:54)
[2019-12-28] MEDS: SODIUM CHLORIDE 0.9% 1,000 ML IV SCH ×2 (04:09→12:42)
[2019-12-28] MEDS: amLODIPine 2.5 MG TAB PO SCH (07:54)
[2019-12-28] MEDS: ZINC SULFATE 220 MG CAP PO SCH (07:57)
[2019-12-28] MEDS: REMDESIVIR (EUA) 100 MG in SODIUM CHLORIDE 0.9% 250 ML IVPB SCH (07:57)
[2019-12-28] MEDS: dexAMETHasone 2 MG TAB PO SCH (07:57)
[2019-12-28] MEDS: methocarbamoL 750 MG TAB PO SCH (07:58)
[2019-12-28] MEDS: ASCORBIC ACID 500 MG TAB PO SCH (07:58)
[2019-12-28] MEDS: CHOLECALCIFEROL 1,000 UNIT TAB PO SCH (07:58)
[2019-12-28] MEDS: CLOPIDOGREL 75 MG TAB PO SCH (07:58)
[2019-12-28] MEDS: ENOXAPARIN 60 MG/0.6 ML SYRINGE SQ SCH ×2 (07:58→19:53)
[2019-12-28] MEDS: PANTOPRAZOLE 40 MG TABLET PO SCH (07:58)
[2019-12-28] MEDS: guaiFENesin 600 MG TABLET.ER PO SCH ×2 (07:58→19:53)
[2019-12-28] MEDS: ASPIRIN 81 MG PO SCH (07:58)
[2019-12-28] MEDS: FINASTERIDE 5 MG TAB PO SCH (07:58)
[2019-12-28] MEDS: FLUTICASONE 50MCG/SPRAY NASAL 16GM EA NOSTRIL SCH (08:10)
[2019-12-28] MEDS: ALBUTEROL HFA INHALER INHALATION SCH ×4 (08:42→19:47)
--- NOTE | 2019-12-28 10:54 | XR ---
EXAMINATION TYPE: XR chest 1V portable DATE OF EXAM: 12/28/2019 COMPARISON: 12/26/2019 INDICATION: Hypoxia TECHNIQUE: Single frontal view of the chest is obtained. FINDINGS: The heart size is prominent. The pulmonary vasculature is normal. There is left lower lobe infiltrate. Correlate for atelectasis and pneumonia. This was present previo usly and appears similar. Some mild extends superiorly may be present Follow-up is recommended. IMPRESSION: 1. Slight increase in size of the left lower lobe filtrate. Correlate for pneumonia.
--- NOTE | 2019-12-28 12:11 | P.PN ---
Subjective Progress Note Date: 12/28/19 Principal diagnosis: Altered mental status secondary to metabolic encephalopathy This is an 89-year-old gentleman who follows with Dr. Bautista as his primary care provider. He has a history of hypertension, hyperlipidemia, osteoarthritis, hearing disorder, depression. Lifelong nonsmoker. He was brought into the emergency room yesterday by his daughter after finding him sitting in chair soiled and had not eaten. He states he had taken a fall and was able to crawl to the chair to get himself up. Computed tomography scan of the head reveals no acute intracranial abnormality. CT of the lumbar spine revealed no compression fractures. Some degenerative changes noted. His x-ray revealed bilateral pulmonary airspace infiltrate and atelectasis. No pneumothorax. Pelvis x-ray reveals no fracture. CT angiogram ruled out pulmonary embolism. There is pulmonary fibrotic changes and subsegmental atelectasis. We are consulted for the same. He is seen today in consultation on the regular medical floor. He is currently resting in bed. Awake and alert. Somewhat slow to respond. He did receive Dilaudid for pain medication earlier this morning. He is quite hard of hearing. He is maintaining O2 saturations in the 90s on 3 L/m per nasal cannula. His been afebrile. Hemodynamically stable. White count 4.7. Hemoglobin 13.9. Sodium 134. Potassium 4.2. Creatinine 1.46. Creatinine kinase 1948. Troponin 0.048, 0.052, 0.074. His been initiated on IV Solu-Medr ol, Levaquin. Blood cultures pending. Urine culture pending. CoVID 19 screen pending. On 12/26/2019 patient seen in follow-up on general medical surgical floor. Patient was given a dose of Lasix yesterday, was given breathing treatments for wheezing, his had no fever overnight , his Covid 19 testing is still pending. Follow-up chest x-ray has been reviewed showing bibasilar atelectasis. Keira athing has improved somewhat, has a persistent cough and exertional dyspnea, but has had no acute events overnight. Patient remains on Levaquin for empiric coverage, IV steroids and breathing treatments, one dose of IV Lasix was given yesterday, had fluid balance is difficult to estimate, over on today's labs his creatinine did slightly worsened and is up to 1.9 at today's labs. His CK is coming down, down to 1570. The patient continues on IV hydration currently at 75 ML per hour, The patient is seen today 12/27/2019 in follow-up on the regular medical floor. He is currently awake and alert. He is currently afebrile. Hemodynamically stable. He is now up to 15 L high flow nasal cannula to maintain O2 saturations in the 90s. Yesterday's chest x-ray revealed basilar atelectasis. Blood culture reveals no growth. Sodium 133. Potassium 4.8. Creatinine 1.64. Creatinine kinase 885. D-dimer 8.49. Carrion virus detected now. He will be initiated on REemdesivir, vitamin C, vitamin D, melatonin, Pepcid, zinc and Lovenox. Continue Solu-Medrol, oral Levaquin, bronchodilators. 0.9 normal saline at 75 ML's per hour. The patient is seen today 12/28/2019 in follow-up on the regular medical floor. He is awake and alert. He did develop worsening shortness of breath and hypoxemia earlier this morning. He is now placed on AirVo high flow oxygen device at 60 L and 93% FiO2 the current O2 saturation at 93%. Chest x-ray reveals basilar atelectasis with increasing infiltrate of the left lower lobe. Blood culture reveals no growth. He remains on Levaquin. This is day 2 of Remd esivir. Continued on zinc, melatonin, vitamin C, vitamin D, dexamethasone. 0.9 normal saline at 75 ML's per hour. Objective - Vital Signs Vital signs: Vital Signs Temp 97.7 F 12/28/19 07:12 Pulse 80 12/28/19 07:12 Resp 18 12/28/19 07:12 BP 105/71 12/28/19 07:12 Pulse Ox 93 L 12/28/19 11:49 Intake & Output 12/27/19 12/28/19 12/28/19 19:59 06:59 18:59 Intake Total Output Total Balance Intake: IV Remdesivir (Eua) 200 mg In Sodium Chloride 0.9% 250 ml @ 250 mls/hr IVPB ONCE ONE Rx#:[id number] Sodium Chloride 0.9% 1, 000 ml @ 75 mls/hr IV . [id number] [facility] Rx#:[id number] Oral Output: Urine Other: Voiding Method Urinal Diaper Incontinent # Voids # Bowel Movements - Exam GENERAL EXAM: Alert, very pleasant, 89-year-old male patient on AirVo high flow oxygen device at 60 L and 93% FiO2 to maintain O2 saturations in the 90s. fairly comfortable in no apparent distress. HEAD: Normocephalic/atraumatic. EYES: Normal reaction of pupils, equal size. Conjunctiva pink, sclera white. NOSE: Clear with pink turbinates. THROAT: No erythema or exudates. NECK: No masses, no JVD, no thyroid enlargement, no adenopathy. CHEST: No chest wall deformity. Symmetrical expansion. LUNGS: Equal air entry with minimal wheezing, bilateral scattered rhonchi, left greater than right CVS: Regular rate and rhythm, normal S1 and S2, no gallops, no murmurs, no rubs ABDOMEN: Soft, nontender. No hepatosplenomegaly, normal bowel sounds, no guarding or rigidity. EXTREMITIES: No clubbing, no edema, no cyanosis, 2+ pulses and upper and lower extremities. MUSCULOSKELETAL: Muscle strength and tone normal. SPINE: No scoliosis or deformity SKIN: No rashes CENTRAL NERVOUS SYSTEM: No focal deficits, tone is normal in all 4 extremities. PSYCHIATRIC: Alert and oriented -3. Appropriate affect. Intact judgment and insight. - Labs CBC & Chem 7: 12/25/19 05:44 12/27/19 06:15 Labs: Abnormal Lab Results - Last 24 Hours (Table) 12/24/19 Range/Units 22:22 Coronavirus (PCR) Detected A (Not Detected) Microbiology - Last 24 Hours (Table) 12/24/19 21:27 Blood Culture - Preliminary Blood No Growth after 72 hours Assessment and Plan Assessment: 1 Acute hypoxic respiratory failure secondary to CoVID 19 pneumonitis 2 Altered mental status and status post fall with no noted fractures 3 Rhabdomyolysis secondary to above 4 Fibrotic changes and subsegmental atelectasis cannot rule out early pneumonia 5 Elevated inflammatory markers secondary to above 6 Hearing disorder 7 Hypertension 8 History of bilateral PE 9 History of depression 10 Hyperlipidemia Plan: The patient was seen and evaluated by Dr. De La O He did speak with the patient's daughter Vanda regarding his current diagnosis and prognosis The family is considering DO NOT RESUSCITATE CODE STATUS and will let us know In the interim, chest x-ray reviewed Initiated on AirVo high flow oxygen Continue Remdesivir, Lovenox, vitamin A, vitamin C, Pepcid, zinc, melatonin Continue dexamethasone, bronchodilators Continue isolation precautions Repeat inflammatory markers and chest x-ray in a.m. Overall prognosis remains guarded, We will continue to follow and make further recommendations based on his clinical status I, the cosigning physician, performed a history & physical examination of the patient. Lungs sounds with bilateral end expiratory wheeze, scattered rhonchi. Maintaining good O2 saturations in the 90s on air. High flow oxygen device at 60 L and 93% FiO2 with O2 saturations in the 90s. I discussed the assessment and plan of care with my nurse practitioner, Alessia Tineo. I attest to the above note as dictated by her.
--- NOTE | 2019-12-28 12:34 | P.PN ---
Subjective Progress Note Date: 12/28/19 Principal diagnosis: Covid pneumonia HISTORY OF PRESENT ILLNESS 89-year-old male one of my office patient of known for long time with multiple medical problem who was in the hospital last time back in February 12 for CVA, patient is known to have history of hypertension, hyperlipidemia, chronic kidney disease, chronic lower back pain, atherosclerotic heart disease, obstructive sleep apnea and valvular heart disease who apparently had fell at home and had significant altered mental status could not control and look for help his daughter finally found him on the floor of his house for in known. Of time most likely over 12 hours after he sustained a fall without loss of consciousness or seizure according to him he developed to have significant dyspnea and shortness of breath 911 was called patient brought to the emergency department at [facility] where was seen and evaluated ended up having multiple testing including CT of the brain and cervical spine showed small vessel disease with severe arthritis, chest x-ray showed left lower lobe pneumonia, X-ray with no finding consistent with fracture, CTA showed no evidence of pulmonary embolism but mild pulmonary fibrotic change in sup segmental atelectasis with pneumonia the left side. Patient is known to have history of coagulopathy and blood clot the past was on anticoagulation previously. Patient CK was significantly elevated was diagnosed with rhabdomyolysis acute kidney injury his troponin was mildly elevated as well. Patient was started on hydration started on Rocephin and azithromycin for left sided pneumonia with a? Of Covid vest still pending at this point 12/24: Patient denies any new complaints. COVID-19 testing remains pending. However medicine and cardiology on consult. Repeat blood work reveals CBC with platelet count of 136, lymphocytes 0.6. Sodium 134, CO2 19, BUN 51 and creatinine 1.46. Blood sugar 108. Repeat CK is at 1948. Repeat troponins are 0.052 and 0.074. 12/25: Echocardiogram reveals EF of 50-55%, moderate concentric left hypertrophy, mild aortic valve sclerosis, trace aortic regurgitation, mild mitral calcification, mild mitral regurgitation. Patient has been seen by cardiology and acute coronary syndrome has been ruled out. Cardiology is now following on an as-needed basis. Patient is also been seen by pulmonary medicine and continued on current medications. Repeat lab work reveals sodium 135, potassium 4.8, chloride 104, CO2 20. BUN 69 creatinine 1.9. AST is improved at 73. CK improved at 1570. Covid testing is pending. Urinalysis revealed blood large, leukoesterase greater than 182, urine bacteria rare. Patient has a condom catheter in place. Repeat chest x-ray reveals basilar atelectasis. Difficult to exclude minimal pleural fluid. Breathing status is slowly improving but continues to have cough and shortness of breath with activity. Solu-Medrol will be decreased frequency to every 12 hours. Plan to continue IV fluids due to worsening creatinine. PT and OT consults will be added. 12/26, Covid was positive, on remdesivir still with shortness of breath, rhonchi, diminished appetite,, patient denies any aspiration, no diarrhea, no fever, Hernadez catheter draining clear urine, pulmonary following, on Solu-Medrol now switched to oral dexamethasone and vitamin C zinc, we will add Mucinex, maintained on IV fluids, creatinine is monitored closely and decrease amlodipine to 2.5 secondary to low blood pressures, nutritional supplementation with ensure. 12/27: Patient had Crestor distress early this morning, has been on the nonrebreather mask at 15 L has cannula, Lasix was given 1 dose, requested the nurse to notify Dr. Dubois, and was placed on a of all high flow at 60 L, patient is currently having a meal, without any dysphagia, patient denies any fever or chills, has minimal dyspnea, d-dimer is elevated, on Lovenox 80 mg subcu, patient most likely cannot tolerate the CPAP protocol, secondary to elevated creatinine, however VQ scan also most likely would be not tolerated based on his difficulty in perofrming the procedure. We will await further recommendations from pulmonary . On IV levaquin, remdesivir second day tx. not on Plaquenil plaquenil secondary to previous study showing no relevance or efficacy of treatment, discussed with Dr. Dubois, also has prolonged qt, IL 6 levels requested Actemra possibly to be initiated, Dr. De La O to the side REVIEW OF SYSTEMS CONSTITUTIONAL: Mildly overweight with mild respiratory distress. Denies fever. Denies chills. EYES: No icterus sclerae, no conjunctivitis. EARS, NOSE, MOUTH, THROAT, and FACE: No sore throat, lymphadenopathy, carotid bruits or deformity. RESPIRATORY: Mild cough wheezes-improving. CARDIOVASCULAR: Positive PND orthopnea and palpitation. GASTROINTESTINAL: No Abd pain, Nausea or vomiting, no Diarrhea or constipation, No GI Bleed, no distention or masses. GENITOURINARY: Decrease urine output with incontinence. INTEGUMENT/BREAST: Back pain and bilateral leg pain and worsening of the left hip. HEMATOLOGIC/LYMPHATIC: Negative for bleed or purpura. MUSCULOSKELTAL: Negative for Myalgia or arthralgia significant pain and discomfort of the lower back area.. NEURLOGICAL: Altered mental status with generalized weakness no focal deficit. BEHAVIORAL/PSYCH: Negative. Slight worsening memory. ENDOCRINE: Negative. Objective - Vital Signs Vital signs: Vital Signs Temp 97.7 F 12/28/19 07:12 Pulse 80 12/28/19 07:12 Resp 18 12/28/19 07:12 BP 105/71 12/28/19 07:12 Pulse Ox 93 L 12/28/19 11:49 Intake & Output 12/27/19 12/28/19 12/28/19 19:59 06:59 18:59 Intake Total 850 Output Total Balance 850 Intake: IV 600 Remdesivir (Eua) 200 mg In Sodium Chloride 0.9% 250 ml @ 250 mls/hr IVPB ONCE ONE Rx#:[id number] Sodium Chloride 0.9% 1, 600 000 ml @ 75 mls/hr IV . [id number] [facility] Rx#:[id number] Intake, IV Titration 250 Amount Remdesivir (Eua) 100 mg 250 In Sodium Chloride 0.9% 250 ml @ 250 mls/hr IVPB DAILY [facility] Rx#:[id number] Oral Output: Urine Other: Voiding Method Urinal Diaper Incontinent # Voids # Bowel Movements - Constitutional General appearance: Present: cooperative, mild distress - EENT Eyes: Present: anicteric sclerae, EOMI, PERRLA, normal appearance ENT: Present: NA/AT, normal oropharynx - Neck Neck: Present: normal ROM - Respiratory Respiratory: bilateral: rhonchi, wheezing - Cardiovascular Rhythm: regular Heart sounds: normal: S1, S2 - Gastrointestinal General gastrointestinal: Present: normal bowel sounds, soft - Integumentary Integumentary: Present: decreased turgor, normal - Neurologic Neurologic: Present: CNII-XII intact - Musculoskeletal Musculoskeletal: Present: generalized weakness - Psychiatric Psychiatric: Present: A&O x's 3, intact judgment & insight - Labs CBC & Chem 7: 12/25/19 05:44 12/28/19 12:31 Labs: Abnormal Lab Results - Last 24 Hours (Table) 12/24/19 Range/Units 22:22 Coronavirus (PCR) Detected A (Not Detected) Microbiology - Last 24 Hours (Table) 12/24/19 21:27 Blood Culture - Preliminary Blood No Growth after 72 hours Assessment and Plan Assessment: ASSESSMENT AND PLAN 1 metabolic encephalopathy secondary to pneumonia, Covid pneumonitis, rhabdomyolysis. 2 post fall with generalized a bruise no major bone trauma this point. 3 left-sided pneumonia: Most likely community-acquired pneumonia continue Roceph in and azithromycin for now continue O2 and updraft treatment. 4 possible Covid: Testing still pending at this point patient will continue to be on isolation his marker negative at this point if result is positive patient will benefit from being on Remdesivir, and Decadron. 5 acute kidney injury with rhabdomyolysis. Continue gentle hydration 6 rhabdomyolysis. Recheck CK tomorrow 7 elevated troponin, acute coronary syndrome ruled out. Cardiology consult appreciated. Cardiology has signed off. 8 valvular heart disease: Patient is known to have mild pulmonary hypertension with mild mitral and tricuspid regurgitation, was seeing cardiology regular basis. 9 chronic reactive airway/mild COPD: Patient can benefit from DuoNeb and O2 at this point. 10 severe GERD: Remain on omeprazole. 11 history of CVA: Patient was on Plavix and 81 mg aspirin. 12 previous history of PE and DVT was treated previously and off anticoagulation currently. 13 chronic lower back pain post back surgery remain on smaller dose of hydrocodone along with Robaxin and still on meloxicam, and fentanyl patches. 14 hypertension: Remain on lisinopril 20 mg twice a day. Continue amlodipine 5 mg a day. 15 hyperlipidemia: On atorvastatin 40 mg daily. 16 GI prophylaxis: On PPI. 17 DVT prophylaxis: Early mobilization and knee-high SHEREE hose and Venodyne boots. Heparin subcutaneous will be use as well. CODE STATUS: Full code. DISCHARGE PLAN To be determined. Patient may benefit from subacute rehab. PT and OT have been added. Plan: SSESSMENT AND PLAN 1 Covid pneumonitis, with cytokine storm syndrome, , Patient on January severe started on Tobrex 30 03/17/2019, on vitamin C zinc, dexamethasone 6 mg oral daily, IL-6 pending tests requested 12/28/2019, Plaquenil ineffective based on studies as discussed with Dr. Artinian, Actemra is being considered 2 acute rhabdomyolysis post fall with generalized a bruise no major bone trauma this point. trending downward, continue to monitor, IV fluids 3 acute respiratory distress left-sided pneumonia: Covid pneumonitis possible community-acquired pneumonia continue Levaquin 750 IV for now continue O2 and updraft treatment. Airvo at 60 L, started on December 27 secondary to respiratory distress 4 Covid: t will continue to be on isolation on Remdesivir, and Decadron. 5 acute kidney injury with rhabdomyolysis. Continue gentle hydration 6. Elevated d-dimer, most likely secondary to hypercoagulability, cytokine storm syndrome on therapeutic dosing of Lovenox 60 mg every 12 hours subcu regimen at 1 mg/kg per day 7 elevated troponin, acute coronary syndrome ruled out. Cardiology consult appreciated. Cardiology has signed off. 8. Prolonged QT most likely likely secondary to current illness sepsis, 8 valvular heart disease: Patient is known to have mild pulmonary hypertension with mild mitral and tricuspid regurgitation, was seeing cardiology regular basis. 9 chronic reactive airway/mild COPD: Patient can benefit from DuoNeb and O2 at this point. 10 severe GERD: Remain on omeprazole. 11 history of CVA: Patient was on Plavix and 81 mg aspirin. 12 previous history of PE and DVT was treated previously and off anticoagulation currently. 13 chronic lower back pain post back surgery remain on smaller dose of hydrocodone along with Robaxin and still on meloxicam, and fentanyl patches. 14 hypertension: Remain on lisinopril 20 mg twice a day. Continue amlodipine 5 mg a day. 15 hyperlipidemia: On atorvastatin 40 mg daily. 16 GI prophylaxis: On PPI. 17 DVT prophylaxis: Early mobilization and knee-high SHEREE hose and Venodyne boots. Heparin subcutaneous will be use as well. CODE STATUS: Full code.
[2019-12-28] MEDS: LEVOFLOXACIN 250 MG TAB PO SCH (12:42)
[2019-12-28] MEDS: MELATONIN 5 MG TABLET PO SCH (19:53)
[2019-12-29] MEDS: HYDROmorphone 0.5 MG/0.5 ML SYRINGE IVP PRN ×3 (02:41→20:32)
[2019-12-29] MEDS: ASPIRIN 81 MG PO SCH (07:47)
[2019-12-29] MEDS: amLODIPine 2.5 MG TAB PO SCH (07:47)
[2019-12-29] MEDS: FAMOTIDINE 20 MG TAB PO SCH (07:47)
[2019-12-29] MEDS: CHOLECALCIFEROL 1,000 UNIT TAB PO SCH (07:48)
[2019-12-29] MEDS: CLOPIDOGREL 75 MG TAB PO SCH (07:48)
[2019-12-29] MEDS: ASCORBIC ACID 500 MG TAB PO SCH (07:48)
[2019-12-29] MEDS: guaiFENesin 600 MG TABLET.ER PO SCH ×2 (07:48→20:32)
[2019-12-29] MEDS: FINASTERIDE 5 MG TAB PO SCH (07:48)
[2019-12-29] MEDS: dexAMETHasone 2 MG TAB PO SCH (07:50)
[2019-12-29] MEDS: FLUTICASONE 50MCG/SPRAY NASAL 16GM EA NOSTRIL SCH (07:51)
[2019-12-29] MEDS: methocarbamoL 750 MG TAB PO SCH (07:51)
[2019-12-29] MEDS: ZINC SULFATE 220 MG CAP PO SCH (07:51)
[2019-12-29] MEDS: ENOXAPARIN 60 MG/0.6 ML SYRINGE SQ SCH ×2 (07:53→21:16)
[2019-12-29] MEDS: ALBUTEROL HFA INHALER INHALATION SCH ×4 (08:07→20:01)
[2019-12-29 09:25] LABS: African American GFR (CKD) 77.5 (60.0-200.0); C Reactive Protein 2.6 mg/dL (0.0-0.8); Non-African American GFR(CKD) 66.9 (60.0-200.0)
[2019-12-29] MEDS: REMDESIVIR (EUA) 100 MG in SODIUM CHLORIDE 0.9% 250 ML IVPB SCH (09:49)
--- NOTE | 2019-12-29 09:54 | XR ---
EXAMINATION TYPE: XR chest 1V portable DATE OF EXAM: 12/29/2019 COMPARISON: 12/28/2019 HISTORY: Cough possible pneumonia TECHNIQUE: Single frontal view of the chest is obtained. FINDINGS: There is limited exam due to motion. Heart is enlarged and there is bilateral areas of int erstitial change and consolidation stable. Heart is enlarged. No obvious pneumothorax. IMPRESSION: Multifocal changes are stable could been the basis of multifocal pneumonia correlate cli nically.
--- NOTE | 2019-12-29 10:52 | P.PN ---
Subjective Progress Note Date: 12/29/19 HISTORY OF PRESENT ILLNESS 89-year-old male one of my office patient of known for long time with multiple medical problem who was in the hospital last time back in February 12 for CVA, patient is known to have history of hypertension, hyperlipidemia, chronic kidney disease, chronic lower back pain, atherosclerotic heart disease, obstructive sleep apnea and valvular heart disease who apparently had fell at home and had significant altered mental status could not control and look for help his daughter finally found him on the floor of his house for in known. Of time most likely over 12 hours after he sustained a fall without loss of consciousness or seizure according to him he developed to have significant dyspnea and shortness of breath 911 was called patient brought to the emergency department at [facility] where was seen and evaluated ended up having multiple testing including CT of the brain and cervical spine showed small vessel disease with severe arthritis, chest x-ray showed left lower lobe pneumonia, X-ray with no finding consistent with fracture, CTA showed no evidence of pulmonary embolism but mild pulmonary fibrotic change in sup segmental atelectasis with pneumonia the left side. Patient is known to have history of coagulopathy and blood clot the past was on anticoagulation previously. Patient CK was significantly elevated was diagnosed with rhabdomyolysis acute kidney injury his troponin was mildly elevated as well. Patient was started on hydration started on Rocephin and azithromycin for left sided pneumonia with a? Of Covid vest still pending at this point 12/24: Patient denies any new complaints. COVID-19 testing remains pending. [facility] medicine and cardiology on consult. Repeat blood work reveals CBC with platelet count of 136, lymphocytes 0.6. Sodium 134, CO2 19, BUN 51 and creatinine 1.46. Blood sugar 108. Repeat CK is at 1948. Repeat troponins are 0.052 and 0.074. 12/25: Echocardiogram reveals EF of 50-55%, moderate concentric left hypertrophy, mild aortic valve sclerosis, trace aortic regurgitation, mild mitral calcification, mild mitral regurgitation. Patient has been seen by cardiology and acute coronary syndrome has been ruled out. Cardiology is now following on an as-needed basis. Patient is also been seen by pulmonary medicine and continued on current medications. Repeat lab work reveals sodium 135, potassium 4.8, chloride 104, CO2 20. BUN 69 creatinine 1.9. AST is improved at 73. CK improved at 1570. Covid testing is pending. Urinalysis revealed blood large, leukoesterase greater than 182, urine bacteria rare. Patient has a condom catheter in place. Repeat chest x-ray reveals basilar a telectasis. Difficult to exclude minimal pleural fluid. Breathing status is slowly improving but continues to have cough and shortness of breath with activity. Solu-Medrol will be decreased frequency to every 12 hours. Plan to continue IV fluids due to worsening creatinine. PT and OT consults will be added. 12/26, Covid was positive, on remdesivir still with shortness of breath, rhonchi, diminished appetite,, patient denies any aspiration, no diarrhea, no fever, Hernadez catheter draining clear urine, pulmonary following, on Solu-Medrol now switched to oral dexamethasone and vitamin C zinc, we will add Mucinex, maintained on IV fluids, creatinine is monitored closely and decrease amlodipine to 2.5 secondary to low blood pressures, nutritional supplementation with ensure. 12/27: Patient had Crestor distress early this morning, has been on the nonrebreather mask at 15 L has cannula, Lasix was given 1 dose, requested the nurse to notify Dr. De La O, and was placed on a of all high flow at 6 L, patient is currently having a meal, without any dysphagia, patient denies any fever or chills, has minimal dyspnea, d-dimer is elevated, on Lovenox 80 mg subcu, patient most likely cannot tolerate the CPAP protocol, secondary to elevated creatinine, however VQ scan also most likely would be not tolerated based on his difficulty in perofrming the procedure. We will await further recommendations from pulmonary . On IV levaquin, remdesivir second day tx. not on Plaquenil plaquenil secondary to previous study showing no relevance or efficacy of treatment, discussed with Dr. De La O also has prolonged qt, IL 6 levels requested Actemra possibly to be initiated, Dr. De La O to the side 12/28: The patient remains in isolation and breathing status is improved today. He is currently on nasal cannula high flow. He has been afebrile, heart rate 92, blood pressure 137/83. D-dimer is improved at 3.3. LDH 636. C-reactive protein 2.6. Patient is on day 3 of 5 of Remdesivir. Discussed discharge planning and he plans to go to [facility] at the time. Patient most likely will require repeat Covid 19 PCR testing prior to discharge. We anticipate he will most likely be here until Sunday of next week. REVIEW OF SYSTEMS CONSTITUTIONAL: Mildly overweight with mild respiratory distress-improved from this weekend. Denies fever. Denies chills. EYES: No icterus sclerae, no conjunctivitis. EARS, NOSE, MOUTH, THROAT, and FACE: No sore throat, lymphadenopathy, carotid bruits or deformity. RESPIRATORY: Mild cough wheezes-improving. CARDIOVASCULAR: Positive PND orthopnea and palpitation. GASTROINTESTINAL: No Abd pain, Nausea or vomiting, no Diarrhea or constipation, No GI Bleed, no distention or masses. GENITOURINARY: Decrease urine output with incontinence. INTEGUMENT/BREAST: Back pain and bilateral leg pain and worsening of the left hip. HEMATOLOGIC/LYMPHATIC: Negative for bleed or purpura. MUSCULOSKELTAL: Negative for Myalgia or arthralgia significant pain and discomfort of the lower back area.. NEURLOGICAL: Altered mental status with generalized weakness no focal deficit. BEHAVIORAL/PSYCH: Negative. Slight worsening memory. ENDOCRINE: Negative. PHYSICAL EXAMINATION General Appearance: Alert, cooperative with no respiratory distress. Neck HEENT: Supple, no lymphadenopathy, no thyroid enlargement, no carotid bruits. Lungs: Decreased breath sound at bases specially in the left side positive for rhonchi with mild crackles mild expiratory wheezes. Chest Wall: Decrease expansion with deep inspiration no tenderness and no deformity was found on exam, no costochondral pain or discomfort. Heart: Regular rate and rhythm, S1, S2 positive history positive 2/6 systolic murmur in the apex Back: Symmetric, mild curvature with slight discomfort lumbar spine area with no open sore or area no rash.. Abdomen: Soft, non-tender, bowel sounds active all four quadrants, distention with no sign of obstruction no tenderness rebound or rigidity. Extremities: Extremities 1+ edema . Pulses: Decreased bilaterally.. Skin: Skin color, texture, tugor normal, no rashes or lesions. Neurologic: Alert oriented, cranial nerves II through XII intact, generalized weaknessp. ASSESSMENT AND PLAN 1 metabolic encephalopathy secondary to pneumonia, Covid pneumonitis, rhabdomyolysis. Patient is on day 3/5 of Remdesivir. Continue oxygen supplementation. 2 post fall with generalized a bruise no major bone trauma this point. 3 left-sided pneumonia: Most likely community-acquired pneumonia continue Rocephin and azithromycin for now continue O2 and updraft treatment. 4 possible Covid: Testing still pending at this point patient will continue to be on isolation his marker negative at this point if result is positive patient will benefit from being on Remdesivir, and Decadron. 5 acute kidney injury with rhabdomyolysis. Continue gentle hydration 6 rhabdomyolysis. Recheck CK tomorrow 7 elevated troponin, acute coronary syndrome ruled out. Cardiology consult appreciated. Cardiology has signed off. 8 valvular heart disease: Patient is known to have mild pulmonary hypertension with mild mitral and tricuspid regurgitation, was seeing cardiology regular basis. 9 chronic reactive airway/mild COPD: Patient can benefit from DuoNeb and O2 at this point. 10 severe GERD: Remain on omeprazole. 11 history of CVA: Patient was on Plavix and 81 mg aspirin. 12 previous history of PE and DVT was treated previously and off anticoagulation currently. 13 chronic lower back pain post back surgery remain on smaller dose of hydrocodone along with Robaxin and still on meloxicam, and fentanyl patches. 14 hypertension: Remain on lisinopril 20 mg twice a day. Continue amlodipine 5 mg a day. 15 hyperlipidemia: On atorvastatin 40 mg daily. 16 GI prophylaxis: On PPI. 17 DVT prophylaxis: Early mobilization and knee-high SHEREE hose and Venodyne boots. Heparin subcutaneous will be use as well. CODE STATUS: Full code. DISCHARGE PLAN [facility] once stabilized. Impression and plan of care have been directed as dictated by the signing physician. Cece Cheng nurse practitioner acting as scribe for signing physician. Objective - Vital Signs Vital signs: Vital Signs Temp 97.5 F L 12/29/19 07:00 Pulse 92 12/29/19 07:00 Resp 20 12/29/19 01:10 BP 137/83 12/29/19 07:00 Pulse Ox 92 L 12/29/19 07:00 Intake & Output 12/28/19 12/29/19 12/29/19 18:59 06:59 18:59 Intake Total 850 300 Output Total 1350 Balance 850 -1050 Intake: IV 600 Sodium Chloride 0.9% 1, 600 000 ml @ 75 mls/hr IV . [id number] [facility] Rx#:[id number] Intake, IV Titration 250 Amount Remdesivir (Eua) 100 mg 250 In Sodium Chloride 0.9% 250 ml @ 250 mls/hr IVPB DAILY [facility] Rx#:[id number] Oral 300 Output: Urine 1350 Other: Voiding Method Diaper Diaper Incontinent Incontinent # Voids 4 - Labs CBC & Chem 7: 12/25/19 05:44 12/29/19 05:42 Labs: Abnormal Lab Results - Last 24 Hours (Table) 12/24/19 12/29/19 Range/Units 22:22 05:42 D-Dimer 3.30 H (<0.60) mg/L FEU Coronavirus (PCR) Detected A (Not Detected) Microbiology - Last 24 Hours (Table) 12/24/19 21:27 Blood Culture - Preliminary Blood No Growth after 96 hours
[2019-12-29] MEDS ORDERED: FUROSEMIDE 10 MG/ML 4 ML VIAL IV STA (11:35)
[2019-12-29] MEDS: SODIUM CHLORIDE 0.9% 1,000 ML IV SCH ×2 (12:18→21:17)
--- NOTE | 2019-12-29 13:57 | P.PN ---
Subjective Progress Note Date: 12/29/19 Principal diagnosis: abnormal Chest x-ray This is an 89-year-old gentleman who follows with Dr. Bautista as his primary care provider. He has a history of hypertension, hyperlipidemia, osteoarthritis, hearing disorder, depression. Lifelong nonsmoker. He was brought into the [facility] room yesterday by his daughter after finding him sitting in chair soiled and had not eaten. He states he had taken a fall and was able to crawl to the chair to get himself up. Computed tomography scan of the head reveals no acute intracranial abnormality. CT of the lumbar spine revealed no compression fractures. Some degenerative changes noted. His x-ray revealed bilateral pulmonary airspace infiltrate and atelectasis. No pneumothorax. Pelvis x-ray reveals no fracture. CT angiogram ruled out pulmonary embolism. There is pulmonary fibrotic changes and subsegmental atelectasis. We are consulted for the same. He is seen today in consultation on the regular medical floor. He is currently resting in bed. Awake and alert. Somewhat slow to respond. He did receive Dilaudid for pain medication earlier this morning. He is quite hard of hearing. He is maintaining O2 saturations in the 90s on 3 L/m per nasal cannula. His been afebrile. Hemodynamically stable. White count 4.7. Hemoglobin 13.9. Sodium 134. Potassium 4.2. Creatinine 1.46. Creatinine kinase 1948. Troponin 0.048, 0.052, 0.074. His been initiated on IV Solu- Medrol, Levaquin. Blood cultures pending. Urine culture pending. CoVID 19 screen pending. On 12/26/2019 patient seen in follow-up on general medical surgical floor. Patient was given a dose of Lasix yesterday, was given breathing treatments for wheezing, his had no fever overnight , his Covid 19 testing is still pending. Follow-up chest x-ray has been reviewed showing bibasilar atelectasis. Breathing has improved somewhat, has a persistent cough and exertional dyspnea, but has had no acute events overnight. Patient remains on Levaquin for empiric coverage, IV steroids and breathing treatments, one dose of IV Lasix was given yesterday, had fluid balance is difficult to estimate, over on today's labs his creatinine did slightly worsened and is up to 1.9 at today's labs. His CK is coming down, down to 1570. The patient continues on IV hydration currently at 75 ML per hour, On 12/29/2019 patient seen in follow-up on the general medical surgical floor. He remains on high flow oxygen per Airvo at 60 L, and FiO2 of 90% and satting about 92%, appears to be in no acute distress, but generally weak. Afebrile, hemodynamically stable, he does become very short of breath with any activity, he has been mostly on bed rest since admission. His Covid 19 PCR came back positive, he was started on Remdesivir, and today is his second day of treatment, in addition to empiric antibiotics, Lovenox, Levaquin, and to oral Decadron. His d-dimer came down to 3.3 from 8.49 on previous labs, and his Lovenox dose is currently 60 mg subcu twice daily, LDH is 636, and CRP is 2.6. Creatinine has improved and is down to 1.0. His chest x-ray today shows multifocal changes that are stable, could be related to Covid 19 multifocal pneu monia Objective - Vital Signs Vital signs: Vital Signs Temp 97.5 F L 12/29/19 07:00 Pulse 92 12/29/19 08:00 Resp 20 12/29/19 08:00 BP 137/83 12/29/19 07:00 Pulse Ox 92 L 12/29/19 07:00 Intake & Output 12/28/19 12/29/19 12/29/19 18:59 06:59 18:59 Intake Total 850 300 Output Total 1350 Balance 850 -1050 Intake: IV 600 Sodium Chloride 0.9% 1, 600 000 ml @ 75 mls/hr IV . [id number] [facility] Rx#:[id number] Intake, IV Titration 250 Amount Remdesivir (Eua) 100 mg 250 In Sodium Chloride 0.9% 250 ml @ 250 mls/hr IVPB DAILY [facility] Rx#:[id number] Oral 300 Output: Urine 1350 Other: Voiding Method Diaper Diaper Diaper Incontinent Incontinent Incontinent # Voids 4 - Exam GENERAL EXAM: Alert, very pleasant, 81-year-old white male on Airvo at 60 l/min, Fio2 90% with a pulse ox of 92%, elderly male, resting in bed, appeared generally weak, but no acute distress noted HEAD: Normocephalic/atraumatic. EYES: Normal reaction of pupils, equal size. Conjunctiva pink, sclera white. NOSE: Clear with pink turbinates. THROAT: No erythema or exudates. NECK: No masses, no JVD, no thyroid enlargement, no adenopathy. CHEST: No chest wall deformity. Symmetrical expansion. LUNGS: Equal air entry with minimal wheezing CVS: Regular rate and rhythm, normal S1 and S2, no gallops, no murmurs, no rubs ABDOMEN: Soft, nontender. No hepatosplenomegaly, normal bowel sounds, no guarding or rigidity. EXTREMITIES: No clubbing, no edema, no cyanosis, 2+ pulses and upper and lower extremities. MUSCULOSKELETAL: Muscle strength and tone normal. SPINE: No scoliosis or deformity SKIN: No rashes CENTRAL NERVOUS SYSTEM: Alert and oriented -3. No focal deficits, tone is normal in all 4 extremities. PSYCHIATRIC: Alert and oriented -3. Appropriate affect. Intact judgment and insight. - Labs CBC & Chem 7: 12/25/19 05:44 12/29/19 05:42 Labs: Abnormal Lab Results - Last 24 Hours (Table) 12/29/19 12/29/19 Range/Units 05:42 05:42 D-Dimer 3.30 H (<0.60) mg/L FEU Lactate Dehydrogenase 636 H (120-246) U/L C-Reactive Protein 2.6 H (0.0-0.8) mg/dL Microbiology - Last 24 Hours (Table) 12/24/19 21:27 Blood Culture - Preliminary Blood No Growth after 96 hours Assessment and Plan Plan: Assessment: #1. Acute hypoxic respiratory failure related to cough with 19 related pneumonia, patient has been started on Remdesivir on 12/28/2019 #2. Elevated inflammatory markers and a d-dimer, related to the above #3. Altered mental status secondary to metabolic encephalopathy of unclear etiology, possibly related to Covid 19 pneumonia, and metabolic encephalopathy #4. Acute kidney injury, recovered #5. Rhabdomyolysis #6. Status post fall with no noted fractures #7. Hearing disorder #8. Hypertension #9. History of bilateral pulmonary embolism #10. Depression #11. Hyperlipidemia Plan: The chest x-ray has been reviewed, still showing multifocal pneumonia, we'll give the patient a dose of IV Lasix, decrease IV fluids to 40 ML per hour, continue Remdesivir, continue Decadron, continue empiric antibiotics. Follow up inflammatory markers, follow-up chest x-ray tomorrow. We'll continue to follow I performed a history & physical examination of the patient and discussed their management with my nurse practitioner, Latosha Jaramillo. I reviewed the nurse practitioner's note and agree with the documented findings and plan of care. Lung sounds are positive for diminished breath sounds. The findings and the impression was discussed with the patient. I attest to the documentation by the nurse practitioner. Time with Patient: Less than 30
[2019-12-29] MEDS: LEVOFLOXACIN 250 MG TAB PO SCH (14:41)
[2019-12-29] MEDS: MELATONIN 5 MG TABLET PO SCH (20:32)
[2019-12-30 06:37] LABS: Basophils # (A) 0.1 k/uL (0-0.2); Basophils % (A) 1 %; Eosinophils % (A) 0 %; HCT 45.7 % (39.0-53.0); HGB 14.5 gm/dL (13.0-17.5); Lymphocytes # (A) 0.9 k/uL (1.0-4.8); Lymphocytes % (A) 7 %; MCH 29.6 pg (25.0-35.0); MCHC 31.7 g/dL (31.0-37.0); MCV 93.5 fL (80.0-100.0); Monocytes # (A) 1.1 k/uL (0-1.0); Monocytes % (A) 8 %; Neutrophils # (A) 10.4 k/uL (1.3-7.7); Neutrophils % (A) 82 %; Platelet Count 232 k/uL (150-450); RBC 4.89 m/uL (4.30-5.90); WBC 12.7 k/uL (3.8-10.6)
[2019-12-30 06:50] LABS: D-Dimer 1.79 mg/L FEU (<0.60)
[2019-12-30] MEDS: ALBUTEROL HFA INHALER INHALATION SCH ×4 (07:59→19:36)
[2019-12-30] MEDS: ASCORBIC ACID 500 MG TAB PO SCH (08:30)
[2019-12-30] MEDS: REMDESIVIR (EUA) 100 MG in SODIUM CHLORIDE 0.9% 250 ML IVPB SCH (08:30)
[2019-12-30] MEDS: amLODIPine 2.5 MG TAB PO SCH (08:30)
[2019-12-30] MEDS: ASPIRIN 81 MG PO SCH (08:31)
[2019-12-30] MEDS: dexAMETHasone 2 MG TAB PO SCH (08:31)
[2019-12-30] MEDS: CLOPIDOGREL 75 MG TAB PO SCH (08:31)
[2019-12-30] MEDS: FINASTERIDE 5 MG TAB PO SCH (08:31)
[2019-12-30] MEDS: FAMOTIDINE 20 MG TAB PO SCH (08:31)
[2019-12-30] MEDS: ENOXAPARIN 60 MG/0.6 ML SYRINGE SQ SCH ×2 (08:31→22:07)
[2019-12-30] MEDS: CHOLECALCIFEROL 1,000 UNIT TAB PO SCH (08:31)
[2019-12-30] MEDS: FLUTICASONE 50MCG/SPRAY NASAL 16GM EA NOSTRIL SCH (08:32)
[2019-12-30] MEDS: guaiFENesin 600 MG TABLET.ER PO SCH ×2 (08:32→21:10)
[2019-12-30] MEDS: methocarbamoL 750 MG TAB PO SCH (08:32)
[2019-12-30] MEDS: ZINC SULFATE 220 MG CAP PO SCH (08:32)
[2019-12-30 09:18] LABS: African American GFR (CKD) 56.5 (60.0-200.0); Albumin 3.7 g/dL (3.80-4.90); Albumin/Globulin Ratio 1.85 (1.60-3.17); Anion Gap 12.1 mmol/L (4.00-12.00); BUN/Creat Ratio 46.92 Ratio (12.00-20.00); C Reactive Protein 2.7 mg/dL (0.0-0.8); Calcium 8.6 mg/dL (8.7-10.3); Carbon Dioxide 23.9 mmol/L (21.6-31.8); Non-African American GFR(CKD) 48.7 (60.0-200.0); Potassium 5.2 mmol/L (3.5-5.5); Total Bilirubin 1.1 mg/dL (0.3-1.2); Total Protein 5.7 g/dL (6.2-8.2)
--- NOTE | 2019-12-30 11:01 | P.PN ---
Subjective 89-year-old male one of my office patient of known for long time with multiple medical problem who was in the hospital last time back in February 12 for CVA, patient is known to have history of hypertension, hyperlipidemia, chronic kidney disease, chronic lower back pain, atherosclerotic heart disease, obstructive sleep apnea and valvular heart disease who apparently had fell at home and had significant altered mental status could not control and look for help his daughter finally found him on the floor of his house for in known. Of time most likely over 12 hours after he sustained a fall without loss of consciousness or seizure according to him he developed to have significant dyspnea and shortness of breath 911 was called patient brought to the emergency department at [facility] where was seen and evaluated ended up having multiple testing including CT of the brain and cervical spine showed small vessel disease with severe arthritis, chest x-ray showed left lower lobe pneumonia, X-ray with no finding consistent with fracture, CTA showed no evidence of pulmonary embolism but mild pulmonary fibrotic change in sup segmental atelectasis with pneumonia the left side. Patient is known to have history of coagulopathy and blood clot the past was on anticoagulation previously. Patient CK was significantly elevated was diagnosed with rhabdomyolysis acute kidney injury his troponin was mildly elevated as well. Patient was started on hydration started on Rocephin and azithromycin for left sided pneumonia with a? Of Covid vest still pending at this point 12/24: Patient denies any new complaints. COVID-19 testing remains pending. However medicine and cardiology on consult. Repeat blood work reveals CBC with platelet count of 136, lymphocytes 0.6. Sodium 134, CO2 19, BUN 51 and creatinine 1.46. Blood sugar 108. Repeat CK is at 1948. Repeat troponins are 0.052 and 0.074. 12/25: Echocardiogram reveals EF of 50-55%, moderate concentric left hypertrophy, mild aortic valve sclerosis, trace aortic regurgitation, mild mi tral calcification, mild mitral regurgitation. Patient has been seen by cardiology and acute coronary syndrome has been ruled out. Cardiology is now following on an as-needed basis. Patient is also been seen by pulmonary medicine and continued on current medications. Repeat lab work reveals sodium 135, potassium 4.8, chloride 104, CO2 20. BUN 69 creatinine 1.9. AST is improved at 73. CK improved at 1570. Covid testing is pending. Urinalysis revealed blood large, leukoesterase greater than 182, urine bacteria rare. Patient has a condom catheter in place. Repeat chest x-ray reveals basilar atelectasis. Difficult to exclude minimal pleural fluid. Breathing status is slowly improving but continues to have cough and shortness of breath with activity. Solu-Medrol will be decreased frequency to every 12 hours. Plan to continue IV fluids due to worsening creatinine. PT and OT consults will be added. 12/26, Covid was positive, on remdesivir still with shortness of breath, rhon chi, diminished appetite,, patient denies any aspiration, no diarrhea, no fever, Hernadez catheter draining clear urine, pulmonary following, on Solu-Medrol now switched to oral dexamethasone and vitamin C zinc, we will add Mucinex, maintained on IV fluids, creatinine is monitored closely and decrease amlodipine to 2.5 secondary to low blood pressures, nutritional supplementation with ensure. 12/27: Patient had Crestor distress early this morning, has been on the nonrebreather mask at 15 L has cannula, Lasix was given 1 dose, requested the nurse to notify Dr. De La O, and was placed on a of all high flow at 6 L, patient is currently having a meal, without any dysphagia, patient denies any fever or chills, has minimal dyspnea, d-dimer is elevated, on Lovenox 80 mg subcu, patient most likely cannot tolerate the CPAP protocol, secondary to elevated creatinine, however VQ scan also most likely would be not tolerated based on his difficulty in perofrming the procedure. We will await further recommendations from pulmonary . On IV levaquin, remdesivir second day tx. not on Plaquenil plaquenil secondary to previous study showing no relevance or efficacy of treatment, discussed with Dr. De La O also has prolonged qt, IL 6 levels requested Actemra possibly to be initiated, Dr. De La O to the side 12/28: The patient remains in isolation and breathing status is improved today. He is currently on nasal cannula high flow. He has been afebrile, heart rate 92, blood pressure 137/83. D-dimer is improved at 3.3. LDH 636. C-reactive protein 2.6. Patient is on day 3 of 5 of Remdesivir. Discussed discharge planning and he plans to go to [facility] at the time. Patient most likely will require repeat Covid 19 PCR testing prior to discharge. We anticipate he will most likely be here until Sunday of next week. 12/29: Patient evaluated this morning, remains in isolation. Per nurse patient will not keep high flow O2 on, will switch to nasal cannula to keep saturation above 90%. Vital signs are stable, he remains afebrile temp 97.3, heart rate 68, respiratory 22, blood pressure 117/77, 91% via nasal cannula. d-dimer continues to improve 1.79, LDH 747, C-reactive protein 2.7. He continues on Remdesivir. Patient will be more than likely discharge to [facility] once Covid testing is negative. Objective - Vital Signs Vital signs: Vital Signs Temp 97.3 F L 12/30/19 07:00 Pulse 68 12/30/19 07:00 Resp 22 12/30/19 07:00 BP 117/77 12/30/19 07:00 Pulse Ox 91 L 12/30/19 07:00 Intake & Output 12/29/19 12/30/19 12/30/19 18:59 06:59 18:59 Intake Total 450 640 Output Total 1400 Balance -950 640 Intake: Intake, IV Titration 640 Amount Sodium Chloride 0.9% 1, 640 000 ml @ 40 mls/hr IV . Q[facility]H [facility] Rx#:[id number] Oral 450 Output: Urine 1400 Other: Voiding Method Diaper Diaper Incontinent Incontinent # Voids 1 # Bowel Movements 0 - Exam General Appearance: Alert, cooperative with no respiratory distress. Neck HEENT: Supple, no lymphadenopathy, no thyroid enlargement, no carotid bruits. Lungs: Decreased breath sound at bases specially in the left side positive for rhonchi with mild crackles mild expiratory wheezes. Chest Wall: Decrease expansion with deep inspiration no tenderness and no deformity was found on exam, no costochondral pain or discomfort. Heart: Regular rate and rhythm, S1, S2 positive history positive 2/6 systolic murmur in the apex Back: Symmetric, mild curvature with slight discomfort lumbar spine area with no open sore or area no rash.. Abdomen: Soft, non-tender, bowel sounds active all four quadrants, distention with no sign of obstruction no tenderness rebound or rigidity. Extremities: Extremities 1+ edema . Pulses: Decreased bilaterally.. Skin: Skin color, texture, tugor normal, no rashes or lesions. Neurologic: Alert oriented, cranial nerves II through XII intact, generalized weakness - Labs CBC & Chem 7: 12/31/19 05:47 12/31/19 05:47 Labs: Abnormal Lab Results - Last 24 Hours (Table) 12/30/19 12/30/19 12/30/19 Range/Units 06:09 06:09 06:09 WBC 12.7 H (3.8-10.6) k/uL Neutrophils # 10.4 H (1.3-7.7) k/uL Lymphocytes # 0.9 L (1.0-4.8) k/uL Monocytes # 1.1 H (0-1.0) k/uL D-Dimer 1.79 H (<0.60) mg/L FEU Anion Gap 12.10 H (4.00-12.00) mmol/L BUN 61.0 H (9.0-27.0) mg/dL Est GFR (CKD-EPI)AfAm 56.5 L (60.0-200.0) Est GFR (CKD-EPI)NonAf 48.7 L (60.0-200.0) BUN/Creatinine Ratio 46.92 H (12.00-20.00) Ratio Glucose 116 H (70-110) mg/dL Calcium 8.6 L (8.7-10.3) mg/dL AST 65 H (14-35) U/L Lactate Dehydrogenase 747 H (120-246) U/L C-Reactive Protein 2.7 H (0.0-0.8) mg/dL Total Protein 5.7 L (6.2-8.2) g/dL Albumin 3.70 L (3.80-4.90) g/dL Microbiology - Last 24 Hours (Table) 12/24/19 21:27 Blood Culture - Preliminary Blood No Growth after 120 hours Assessment and Plan Plan: 1 metabolic encephalopathy secondary to pneumonia, Covid pneumonitis, rhabdomyolysis. Patient is on day 4/5 of Remdesivir. Continue oxygen supplementation via nasal cannula. 2 post fall with generalized a bruise no major bone trauma this point. 3 left-sided pneumonia: Most likely community-acquired pneumonia continue Roceph in and azithromycin for now continue O2 and updraft treatment. 4 possible Covid: Positive Covid, continue on Remdesivir 5 acute kidney injury with rhabdomyolysis. Continue gentle hydration 6 rhabdomyolysis. Recheck CK tomorrow 7 elevated troponin, acute coronary syndrome ruled out. Cardiology consult appreciated. Cardiology has signed off. 8 valvular heart disease: Patient is known to have mild pulmonary hypertension with mild mitral and tricuspid regurgitation, was seeing cardiology regular basis. 9 chronic reactive airway/mild COPD: Patient can benefit from DuoNeb and O2 at this point. 10 severe GERD: Remain on omeprazole. 11 history of CVA: Patient was on Plavix and 81 mg aspirin. 12 previous history of PE and DVT was treated previously and off anticoagulation currently. 13 chronic lower back pain post back surgery remain on smaller dose of hydrocodone along with Robaxin and still on meloxicam, and fentanyl patches. 14 hypertension: Remain on lisinopril 20 mg twice a day. Continue amlodipine 5 mg a day. 15 hyperlipidemia: On atorvastatin 40 mg daily. 16 GI prophylaxis: On PPI. 17 DVT prophylaxis: Early mobilization and knee-high SHEREE hose and Venodyne boots. Heparin subcutaneous will be use as well. The above impression and plan of care have been discussed and directed by signing physician. Connie Rodriguez nurse practitioner acting as scribe for signing physician.
[2019-12-30 14:14] VITALS: BMI 41.8
--- NOTE | 2019-12-30 15:52 | P.PN ---
Subjective Progress Note Date: 12/30/19 Principal diagnosis: abnormal Chest x-ray This is an 89-year-old gentleman who follows with Dr. Bautista as his primary care provider. He has a history of hypertension, hyperlipidemia, osteoarthritis, hearing disorder, depression. Lifelong nonsmoker. He was brought into the [facility] room yesterday by his daughter after finding him sitting in chair soiled and had not eaten. He states he had taken a fall and was able to crawl to the chair to get himself up. Computed tomography scan of the head reveals no acute intracranial abnormality. CT of the lumbar spine revealed no compression fractures. Some degenerative changes noted. His x-ray revealed bilateral pulmonary airspace infiltrate and atelectasis. No pneumothorax. Pelvis x-ray reveals no fracture. CT angiogram ruled out pulmonary embolism. There is pulmonary fibrotic changes and subsegmental atelectasis. We are consulted for the same. He is seen today in consultation on the regular medical floor. He is currently resting in bed. Awake and alert. Somewhat slow to respond. He did receive Dilaudid for pain medication earlier this morning. He is quite hard of hearing. He is maintaining O2 saturations in the 90s on 3 L/m per nasal cannula. His been afebrile. Hemodynamically stable. White count 4.7. Hemoglobin 13.9. Sodium 134. Potassium 4.2. Creatinine 1.46. Creatinine kinase 1948. Troponin 0.048, 0.052, 0.074. His been initiated on IV Solu- Medrol, Levaquin. Blood cultures pending. Urine culture pending. CoVID 19 screen pending. On 12/26/2019 patient seen in follow-up on general medical surgical floor. Patient was given a dose of Lasix yesterday, was given breathing treatments for wheezing, his had no fever overnight , his Covid 19 testing is still pending. Follow-up chest x-ray has been reviewed showing bibasilar atelectasis. Breathing has improved somewhat, has a persistent cough and exertional dyspnea, but has had no acute events overnight. Patient remains on Levaquin for empiric coverage, IV steroids and breathing treatments, one dose of IV Lasix was given yesterday, had fluid balance is difficult to estimate, over on today's labs his creatinine did slightly worsened and is up to 1.9 at today's labs. His CK is coming down, down to 1570. The patient continues on IV hydration currently at 75 ML per hour, On 12/29/2019 patient seen in follow-up on the general medical surgical floor. He remains on high flow oxygen per Airvo at 60 L, and FiO2 of 90% and satting about 92%, appears to be in no acute distress, but generally weak. Afebrile, hemodynamically stable, he does become very short of breath with any activity, he has been mostly on bed rest since admission. His Covid 19 PCR came back positive, he was started on Remdesivir, and today is his second day of treatment, in addition to empiric antibiotics, Lovenox, Levaquin, and to oral Decadron. His d-dimer came down to 3.3 from 8.49 on previous labs, and his Lovenox dose is currently 60 mg subcu twice daily, LDH is 636, and CRP is 2.6. Creatinine has improved and is down to 1.0. His chest x-ray today shows multifocal changes that are stable, could be related to Covid 19 multifocal pneu monia On 12/30/2019 patient seen in follow-up on the general medical surgical floor, apparently patient has been confused, his been frequently removing his oxygen, when we walked 10 patient had his oxygen removed and on the floor, and appeared obviously cyanotic, and confused and his pulse ox was found to be 57% on room air, he was placed back on oxygen, he is on AIRVO at 60 L/m, and FiO2 of 95%, and his pulse ox is at 90%, his been afebrile, hemodynamically patient is stable, currently breathing is labored in view of severe hypoxemia, no significant cough or congestion, he is receiving Remdesivir, today is day 3 of treatment, he is on oral Decadron, and Lovenox 60 mg twice daily. Today's labs have been reviewed, showing Levatol, 12.7, hemoglobin is 14.5, lymphocyte count is 0.9, d-dimer is trending down down to 1.79, his renal profile has improved, BUN is down to 61 and creatinine is 1.3, his LDH is up slightly up to 747 on today's labs, CRP is 2.7, pro calcitonin level was negative at 0.06, and his antibiotics have been discontinued. Blood culture has shown no growth. Patient did receive a dose of IV Lasix yesterday, he has produced 1.4 L in urine output, and he is in negative fluid balance, obtain follow-up chest x-ray tomorrow. Objective - Vital Signs Vital signs: Vital Signs Temp 96.7 F L 12/30/19 14:59 Pulse 87 12/30/19 14:59 Resp 22 12/30/19 14:59 BP 110/65 12/30/19 14:59 Pulse Ox 90 L 12/30/19 13:00 Intake & Output 12/29/19 12/30/19 12/30/19 18:59 06:59 18:59 Intake Total 450 640 Output Total 1400 Balance -950 640 Weight 124.738 kg Intake: Intake, IV Titration 640 Amount Sodium Chloride 0.9% 1, 640 000 ml @ 40 mls/hr IV . Q24H [facility] Rx#:[id number] Oral 450 Output: Urine 1400 Other: Voiding Method Diaper Diaper Incontinent Incontinent # Voids 1 1 # Bowel Movements 0 - Exam GENERAL EXAM: Patient is very hypoxic, confused, cyanotic, he had removed his oxygen, his pulse ox is 57% on room air, placed back on Airvo at 60 l/min, Fio2 95% with a pulse ox of 90%, elderly male, resting in bed, appeared generally weak, and tachypnea, his O2 sats are recovering with the application of supplemental oxygen, product safety expert will be placed at the bedside to prevent the patient from removing his oxygen HEAD: Normocephalic/atraumatic. EYES: Normal reaction of pupils, equal size. Conjunctiva pink, sclera white. NOSE: Clear with pink turbinates. THROAT: No erythema or exudates. NECK: No masses, no JVD, no thyroid enlargement, no adenopathy. CHEST: No chest wall deformity. Symmetrical expansion. LUNGS: Equal air entry with minimal wheezing CVS: Regular rate and rhythm, normal S1 and S2, no gallops, no murmurs, no rubs ABDOMEN: Soft, nontender. No hepatosplenomegaly, normal bowel sounds, no guarding or rigidity. EXTREMITIES: No clubbing, no edema, no cyanosis, 2+ pulses and upper and lower extremities. MUSCULOSKELETAL: Muscle strength and tone normal. SPINE: No scoliosis or deformity SKIN: No rashes CENTRAL NERVOUS SYSTEM: Alert and oriented -3. No focal deficits, tone is normal in all 4 extremities. PSYCHIATRIC: Alert and oriented -3. Appropriate affect. Intact judgment and insight. - Labs CBC & Chem 7: 12/30/19 06:09 12/30/19 06:09 Labs: Abnormal Lab Results - Last 24 Hours (Table) 12/30/19 12/30/19 12/30/19 Range/Units 06:09 06:09 06:09 WBC 12.7 H (3.8-10.6) k/uL Neutrophils # 10.4 H (1.3-7.7) k/uL Lymphocytes # 0.9 L (1.0-4.8) k/uL Monocytes # 1.1 H (0-1.0) k/uL D-Dimer 1.79 H (<0.60) mg/L FEU Anion Gap 12.10 H (4.00-12.00) mmol/L BUN 61.0 H (9.0-27.0) mg/dL Est GFR (CKD-EPI)AfAm 56.5 L (60.0-200.0) Est GFR (CKD-EPI)NonAf 48.7 L (60.0-200.0) BUN/Creatinine Ratio 46.92 H (12.00-20.00) Ratio Glucose 116 H (70-110) mg/dL Calcium 8.6 L (8.7-10.3) mg/dL AST 65 H (14-35) U/L Lactate Dehydrogenase 747 H (120-246) U/L C-Reactive Protein 2.7 H (0.0-0.8) mg/dL Total Protein 5.7 L (6.2-8.2) g/dL Albumin 3.70 L (3.80-4.90) g/dL Microbiology - Last 24 Hours (Table) 12/24/19 21:27 Blood Culture - Preliminary Blood No Growth after 120 hours Assessment and Plan Plan: Assessment: #1. Acute hypoxic respiratory failure related to cough with 19 related pneumonia, patient has been started on Remdesivir on 12/28/2019 #2. Elevated inflammatory markers and a d-dimer, related to the above #3. Altered mental status secondary to metabolic encephalopathy of unclear etiology, possibly related to Covid 19 pneumonia, and metabolic encephalopathy #4. Acute kidney injury, recovered #5. Rhabdomyolysis #6. Status post fall with no noted fractures #7. Hearing disorder #8. Hypertension #9. History of bilateral pulmonary embolism #10. Depression #11. Hyperlipidemia Plan: Follow-up chest x-ray in the morning, place product safety expert to prevent the patient from removing his oxygen, maintain safety precautions, continue Remdesivir, continue oral Decadron, continue Lovenox. We'll continue to closely follow I performed a history & physical examination of the patient and discussed their management with my nurse practitioner, Latosha Jaramillo. I reviewed the nurse practitioner's note and agree with the documented findings and plan of care. Lung sounds are positive for diminished breath sounds. The findings and the impression was discussed with the patient. I attest to the documentation by the nurse practitioner. Time with Patient: Less than 30
[2019-12-30] MEDS: SODIUM CHLORIDE 0.9% 1,000 ML IV SCH (19:52)
[2019-12-30] MEDS: MELATONIN 5 MG TABLET PO SCH (21:10)
[2019-12-31 06:25] LABS: Basophils # (A) 0.1 k/uL (0-0.2); Basophils % (A) 1 %; Eosinophils % (A) 0 %; HGB 13.2 gm/dL (13.0-17.5); Lymphocytes % (A) 7 %; MCH 30.3 pg (25.0-35.0); MCHC 33.1 g/dL (31.0-37.0); MCV 91.6 fL (80.0-100.0); Mean Platelet Volume 8.6; Monocytes # (A) 0.8 k/uL (0-1.0); Monocytes % (A) 6 %; Neutrophils # (A) 11.8 k/uL (1.3-7.7); Neutrophils % (A) 85 %; Platelet Count 277 k/uL (150-450); RBC 4.36 m/uL (4.30-5.90); RDW 14.1 % (11.5-15.5); WBC 13.9 k/uL (3.8-10.6)
[2019-12-31 06:36] LABS: D-Dimer 1.75 mg/L FEU (<0.60)
[2019-12-31] MEDS: ALBUTEROL HFA INHALER INHALATION SCH ×4 (07:39→20:41)
[2019-12-31] MEDS: dexAMETHasone 2 MG TAB PO SCH (09:22)
[2019-12-31] MEDS: ASCORBIC ACID 500 MG TAB PO SCH (09:22)
[2019-12-31] MEDS: ASPIRIN 81 MG PO SCH (09:22)
[2019-12-31] MEDS: CLOPIDOGREL 75 MG TAB PO SCH (09:22)
[2019-12-31] MEDS: amLODIPine 2.5 MG TAB PO SCH (09:22)
[2019-12-31] MEDS: CHOLECALCIFEROL 1,000 UNIT TAB PO SCH (09:22)
[2019-12-31] MEDS: ZINC SULFATE 220 MG CAP PO SCH (09:23)
[2019-12-31] MEDS: methocarbamoL 750 MG TAB PO SCH (09:23)
[2019-12-31] MEDS: ENOXAPARIN 60 MG/0.6 ML SYRINGE SQ SCH ×2 (09:23→19:37)
[2019-12-31] MEDS: FAMOTIDINE 20 MG TAB PO SCH (09:23)
[2019-12-31] MEDS: REMDESIVIR (EUA) 100 MG in SODIUM CHLORIDE 0.9% 250 ML IVPB SCH (09:23)
[2019-12-31] MEDS: guaiFENesin 600 MG TABLET.ER PO SCH ×2 (09:23→19:37)
[2019-12-31] MEDS: FINASTERIDE 5 MG TAB PO SCH (09:23)
[2019-12-31] MEDS: FLUTICASONE 50MCG/SPRAY NASAL 16GM EA NOSTRIL SCH (09:23)
[2019-12-31] MEDS: HYDROmorphone 0.5 MG/0.5 ML SYRINGE IVP PRN ×2 (09:32→15:51)
--- NOTE | 2019-12-31 10:00 | P.PN ---
Subjective 89-year-old male one of my office patient of known for long time with multiple medical problem who was in the hospital last time back in February 12 for CVA, patient is known to have history of hypertension, hyperlipidemia, chronic kidney disease, chronic lower back pain, atherosclerotic heart disease, obstructive sleep apnea and valvular heart disease who apparently had fell at home and had significant altered mental status could not control and look for help his daughter finally found him on the floor of his house for in known. Of time most likely over 12 hours after he sustained a fall without loss of consciousness or seizure according to him he developed to have significant dyspnea and shortness of breath 911 was called patient brought to the emergency department at [facility] where was seen and evaluated ended up having multiple testing including CT of the brain and cervical spine showed small vessel disease with severe arthritis, chest x-ray showed left lower lobe pneumonia, X-ray with no finding consistent with fracture, CTA showed no evidence of pulmonary embolism but mild pulmonary fibrotic change in sup segmental atelectasis with pneumonia the left side. Patient is known to have history of coagulopathy and blood clot the past was on anticoagulation previously. Patient CK was significantly elevated was diagnosed with rhabdomyolysis acute kidney injury his troponin was mildly elevated as well. Patient was started on hydration started on Rocephin and azithromycin for left sided pneumonia with a? Of Covid vest still pending at this point 12/24: Patient denies any new complaints. COVID-19 testing remains pending. However medicine and cardiology on consult. Repeat blood work reveals CBC with platelet count of 136, lymphocytes 0.6. Sodium 134, CO2 19, BUN 51 and creatinine 1.46. Blood sugar 108. Repeat CK is at 1948. Repeat troponins are 0.052 and 0.074. 12/25: Echocardiogram reveals EF of 50-55%, moderate concentric left hypertrophy, mild aortic valve sclerosis, trace aortic regurgitation, mild mi tral calcification, mild mitral regurgitation. Patient has been seen by cardiology and acute coronary syndrome has been ruled out. Cardiology is now following on an as-needed basis. Patient is also been seen by pulmonary medicine and continued on current medications. Repeat lab work reveals sodium 135, potassium 4.8, chloride 104, CO2 20. BUN 69 creatinine 1.9. AST is improved at 73. CK improved at 1570. Covid testing is pending. Urinalysis revealed blood large, leukoesterase greater than 182, urine bacteria rare. Patient has a condom catheter in place. Repeat chest x-ray reveals basilar atelectasis. Difficult to exclude minimal pleural fluid. Breathing status is slowly improving but continues to have cough and shortness of breath with activity. Solu-Medrol will be decreased frequency to every 12 hours. Plan to continue IV fluids due to worsening creatinine. PT and OT consults will be added. 12/26, Covid was positive, on remdesivir still with shortness of breath, rhon chi, diminished appetite,, patient denies any aspiration, no diarrhea, no fever, Hernadez catheter draining clear urine, pulmonary following, on Solu-Medrol now switched to oral dexamethasone and vitamin C zinc, we will add Mucinex, maintained on IV fluids, creatinine is monitored closely and decrease amlodipine to 2.5 secondary to low blood pressures, nutritional supplementation with ensure. 12/27: Patient had Crestor distress early this morning, has been on the nonrebreather mask at 15 L has cannula, Lasix was given 1 dose, requested the nurse to notify Dr. De La O, and was placed on a of all high flow at 6 L, patient is currently having a meal, without any dysphagia, patient denies any fever or chills, has minimal dyspnea, d-dimer is elevated, on Lovenox 80 mg subcu, patient most likely cannot tolerate the CPAP protocol, secondary to elevated creatinine, however VQ scan also most likely would be not tolerated based on his difficulty in perofrming the procedure. We will await further recommendations from pulmonary . On IV levaquin, remdesivir second day tx. not on Plaquenil plaquenil secondary to previous study showing no relevance or efficacy of treatment, discussed with Dr. De La O also has prolonged qt, IL 6 levels requested Actemra possibly to be initiated, Dr. De La O to the side 12/28: The patient remains in isolation and breathing status is improved today. He is currently on nasal cannula high flow. He has been afebrile, heart rate 92, blood pressure 137/83. D-dimer is improved at 3.3. LDH 636. C-reactive protein 2.6. Patient is on day 3 of 5 of Remdesivir. Discussed discharge planning and he plans to go to [facility] at the time. Patient most likely will require repeat Covid 19 PCR testing prior to discharge. We anticipate he will most likely be here until Sunday of next week. 12/29: Patient evaluated this morning, remains in isolation. Per nurse patient will not keep high flow O2 on, will switch to nasal cannula to keep saturation above 90%. Vital signs are stable, he remains afebrile temp 97.3, heart rate 68, respiratory 22, blood pressure 117/77, 91% via nasal cannula. d-dimer continues to improve 1.79, LDH 747, C-reactive protein 2.7. He continues on Remdesivir. Patient will be more than likely discharge to [facility] once Covid testing is negative. 12/30: Patient evaluated this morning, he remains confused and frequently removes his oxygen. Safety sitters at the bedside to ensure patient keeps oxygen on. Overall patient has not improved very much, he continues to be hypoxic without high flow 02. Pro-calcitonin was negative, blood cultures show no growth today. He continues on Remdesivir and Decadron. Objective - Vital Signs Vital signs: Vital Signs Temp 98.2 F 12/31/19 07:00 Pulse 60 12/31/19 07:00 Resp 24 12/31/19 07:00 BP 124/58 12/31/19 07:00 Pulse Ox 86 L 12/31/19 07:00 Intake & Output 12/30/19 12/31/19 12/31/19 18:59 06:59 18:59 Intake Total 309 Output Total 600 Balance -291 Weight 124.738 kg Intake: Intake, IV Titration 120 Amount Sodium Chloride 0.9% 1, 120 000 ml @ 40 mls/hr IV . Q24H [facility] Rx#:[id number] Blood Product 189 Ffp Pher Conval Covid19 189 Acda 1 Unit [id number] Output: Urine 600 Other: Voiding Method Diaper Incontinent # Voids 1 - Exam General Appearance: Alert, cooperative with no respiratory distress. Neck HEENT: Supple, no lymphadenopathy, no thyroid enlargement, no carotid bruits. Lungs: Decreased breath sound at bases specially in the left side positive for rhonchi with mild crackles mild expiratory wheezes. Chest Wall: Decrease expansion with deep inspiration no tenderness and no deformity was found on exam, no costochondral pain or discomfort. Heart: Regular rate and rhythm, S1, S2 positive history positive 2/6 systolic murmur in the apex Back: Symmetric, mild curvature with slight discomfort lumbar spine area with no open sore or area no rash Abdomen: Soft, non-tender, bowel sounds active all four quadrants, distention with no sign of obstruction no tenderness rebound or rigidity Extremities: Extremities 1+ edema . Pulses: Decreased bilaterally Skin: Skin color, texture, tugor normal, no rashes or lesions. Neurologic: Alert oriented, cranial nerves II through XII intact, generalized weakness - Labs CBC & Chem 7: 12/31/19 05:47 12/30/19 06:09 Labs: Abnormal Lab Results - Last 24 Hours (Table) 12/28/19 12/31/19 12/31/19 Range/Units 12:31 05:47 05:47 WBC 13.9 H (3.8-10.6) k/uL Neutrophils # 11.8 H (1.3-7.7) k/uL D-Dimer 1.75 H (<0.60) mg/L FEU Interleukin 6 24.7 H (<6.4) pg/mL Microbiology - Last 24 Hours (Table) 12/24/19 21:27 Blood Culture - Final Blood No Growth after 144 hours Assessment and Plan Plan: 1 metabolic encephalopathy secondary to pneumonia, Covid pneumonitis, rhabdom yolysis. Patient is on day 06/30 of Remdesivir. Continue oxygen supplementation via high flow O2 2 post fall with generalized a bruise no major bone trauma this point. 3 left-sided pneumonia: Most likely community-acquired pneumonia continue Rocephin and azithromycin for now continue O2 and updraft treatment. 4 possible Covid: Positive Covid, continue on Remdesivir 5 acute kidney injury with rhabdomyolysis. Continue gentle hydration 6 rhabdomyolysis. Recheck CK tomorrow 7 elevated troponin, acute coronary syndrome ruled out. Cardiology consult appreciated. Cardiology has signed off. 8 valvular heart disease: Patient is known to have mild pulmonary hypertension with mild mitral and tricuspid regurgitation, was seeing cardiology regular basis. 9 chronic reactive airway/mild COPD: Patient can benefit from DuoNeb and O2 at this point. 10 severe GERD: Remain on omeprazole. 11 history of CVA: Patient was on Plavix and 81 mg aspirin. 12 previous history of PE and DVT was treated previously and off anticoagulation currently. 13 chronic lower back pain post back surgery remain on smaller dose of hydrocodone along with Robaxin and still on meloxicam, and fentanyl patches. 14 hypertension: Remain on lisinopril 20 mg twice a day. Continue amlodipine 5 mg a day. 15 hyperlipidemia: On atorvastatin 40 mg daily. 16 GI prophylaxis: On PPI. 17 DVT prophylaxis: Early mobilization and knee-high SHEREE hose and Venodyne boots. Heparin subcutaneous will be use as well. The above impression and plan of care have been discussed and directed by signing physician. Connie Rodriguez nurse practitioner acting as scribe for signing physician.
[2019-12-31 10:13] LABS: African American GFR (CKD) 69.1 (60.0-200.0); Albumin 3.4 g/dL (3.80-4.90); Albumin/Globulin Ratio 1.7 (1.60-3.17); Anion Gap 11.8 mmol/L (4.00-12.00); BUN/Creat Ratio 52.73 Ratio (12.00-20.00); C Reactive Protein 3.1 mg/dL (0.0-0.8); Calcium 8.5 mg/dL (8.7-10.3); Carbon Dioxide 24.2 mmol/L (21.6-31.8); Non-African American GFR(CKD) 59.6 (60.0-200.0); Potassium 4.6 mmol/L (3.5-5.5); Total Bilirubin 1.2 mg/dL (0.3-1.2); Total Protein 5.4 g/dL (6.2-8.2)
[2019-12-31] MEDS ORDERED: FUROSEMIDE 10 MG/ML 4 ML VIAL IV STA (10:54)
--- NOTE | 2019-12-31 11:08 | XR ---
EXAMINATION TYPE: XR chest 1V portable DATE OF EXAM: 12/31/2019 COMPARISON: Prior chest x-ray 12/29/2019 HISTORY: Pneumonia TECHNIQUE: Single frontal view of the chest is obtained. FINDINGS: Bilateral airspace disease is present. Heart size is enlarged although the patient is rota candy. There is no evident pneumothorax or sizable effusion. Aorta is dense. There is persistent elevat ion of left hemidiaphragm. IMPRESSION: Correlate for pneumonia, edema
--- NOTE | 2019-12-31 13:03 | P.PN ---
Subjective Progress Note Date: 12/31/19 Principal diagnosis: Altered mental status secondary to metabolic encephalopathy This is an 89-year-old gentleman who follows with Dr. Bautista as his primary care provider. He has a history of hypertension, hyperlipidemia, osteoarthritis, hearing disorder, depression. Lifelong nonsmoker. He was brought into the emergency room yesterday by his daughter after finding him sitting in chair soiled and had not eaten. He states he had taken a fall and was able to crawl to the chair to get himself up. Computed tomography scan of the head reveals no acute intracranial abnormality. CT of the lumbar spine revealed no compression fractures. Some degenerative changes noted. His x-ray revealed bilateral pulmonary airspace infiltrate and atelectasis. No pneumothorax. Pelvis x-ray reveals no fracture. CT angiogram ruled out pulmonary embolism. There is pulmonary fibrotic changes and subsegmental atelectasis. We are consulted for the same. He is seen today in consultation on the regular medical floor. He is currently resting in bed. Awake and alert. Somewhat slow to respond. He did receive Dilaudid for pain medication earlier this morning. He is quite hard of hearing. He is maintaining O2 saturations in the 90s on 3 L/m per nasal cannula. His been afebrile. Hemodynamically stable. White count 4.7. Hemoglobin 13.9. Sodium 134. Potassium 4.2. Creatinine 1.46. Creatinine kinase 1948. Troponin 0.048, 0.052, 0.074. His been initiated on IV Solu-Medr ol, Levaquin. Blood cultures pending. Urine culture pending. CoVID 19 screen pending. On 12/26/2019 patient seen in follow-up on general medical surgical floor. Patient was given a dose of Lasix yesterday, was given breathing treatments for wheezing, his had no fever overnight , his Covid 19 testing is still pending. Follow-up chest x-ray has been reviewed showing bibasilar atelectasis. Keira athing has improved somewhat, has a persistent cough and exertional dyspnea, but has had no acute events overnight. Patient remains on Levaquin for empiric coverage, IV steroids and breathing treatments, one dose of IV Lasix was given yesterday, had fluid balance is difficult to estimate, over on today's labs his creatinine did slightly worsened and is up to 1.9 at today's labs. His CK is coming down, down to 1570. The patient continues on IV hydration currently at 75 ML per hour, The patient is seen today 12/27/2019 in follow-up on the regular medical floor. He is currently awake and alert. He is currently afebrile. Hemodynamically stable. He is now up to 15 L high flow nasal cannula to maintain O2 saturations in the 90s. Yesterday's chest x-ray revealed basilar atelectasis. Blood culture reveals no growth. Sodium 133. Potassium 4.8. Creatinine 1.64. Creatinine kinase 885. D-dimer 8.49. Carrion virus detected now. He will be initiated on REemdesivir, vitamin C, vitamin D, melatonin, Pepcid, zinc and Lovenox. Continue Solu-Medrol, oral Levaquin, bronchodilators. 0.9 normal saline at 75 ML's per hour. The patient is seen today 12/28/2019 in follow-up on the regular medical floor. He is awake and alert. He did develop worsening shortness of breath and hypoxemia earlier this morning. He is now placed on AirVo high flow oxygen device at 60 L and 93% FiO2 the current O2 saturation at 93%. Chest x-ray reveals basilar atelectasis with increasing infiltrate of the left lower lobe. Blood culture reveals no growth. He remains on Levaquin. This is day 2 of Remd esivir. Continued on zinc, melatonin, vitamin C, vitamin D, dexamethasone. 0.9 normal saline at 75 ML's per hour. On 12/29/2019 patient seen in follow-up on the general medical surgical floor. He remains on high flow oxygen per Airvo at 60 L, and FiO2 of 90% and satting about 92%, appears to be in no acute distress, but generally weak. Afebrile, hemodynamically stable, he does become very short of breath with any activity, he has been mostly on bed rest since admission. His Covid 19 PCR came back positive, he was started on Remdesivir, and today is his second day of treatment, in addition to empiric antibiotics, Lovenox, Levaquin, and to oral Decadron. His d-dimer came down to 3.3 from 8.49 on previous labs, and his Lovenox dose is currently 60 mg subcu twice daily, LDH is 636, and CRP is 2.6. Creatinine has improved and is down to 1.0. His chest x-ray today shows multifocal changes that are stable, could be related to Covid 19 multifocal pneumonia On 12/30/2019 patient seen in follow-up on the general medical surgical floor, apparently patient has been confused, his been frequently removing his oxygen, when we walked 10 patient had his oxygen removed and on the floor, and appeared obviously cyanotic, and confused and his pulse ox was found to be 57% on room air, he was placed back on oxygen, he is on AIRVO at 60 L/m, and FiO2 of 95%, and his pulse ox is at 90%, his been afebrile, hemodynamically patient is stable, currently breathing is labored in view of severe hypoxemia, no significant cough or congestion, he is receiving Remdesivir, today is day 3 of treatment, he is on oral Decadron, and Lovenox 60 mg twice daily. Today's labs have been reviewed, showing Levatol, 12.7, hemoglobin is 14.5, lymphocyte count is 0.9, d-dimer is trending down down to 1.79, his renal profile has improved, BUN is down to 61 and creatinine is 1.3, his LDH is up slightly up to 747 on today's labs, CRP is 2.7, pro calcitonin level was negative at 0.06, and his antibiotics have been discontinued. Blood culture has shown no growth. Patient did receive a dose of IV Lasix yesterday, he has produced 1.4 L in urine output, and he is in negative fluid balance, obtain follow-up chest x-ray tomorrow. The patient is seen today 12/31/2019 in follow-up on the regular medical floor. He is currently awake and alert. He is sitting up in a chair at the bedside. He remains on AirVo high flow oxygen at 60 L and 88% FiO2 to maintain O2 saturation in the 90s. He is currently afebrile. White count 13.9. Hemoglobin 13.2. D-dimer 1.75. Sodium 144. Potassium 4.6. Creatinine 1.1. LDH 734. C- reactive protein 3.1. Chest x-ray continues to show bilateral airspace disease as well as a persistent elevation of the left hemidiaphragm. He has completed his course of REM does severe today. Continued on dexamethasone. Objective - Vital Signs Vital signs: Vital Signs Temp 98.2 F 12/31/19 07:00 Pulse 60 12/31/19 07:00 Resp 24 12/31/19 07:00 BP 124/58 12/31/19 07:00 Pulse Ox 95 12/31/19 11:08 Intake & Output 12/30/19 12/31/19 12/31/19 18:59 06:59 18:59 Intake Total 309 Output Total 600 Balance -291 Weight 124.738 kg Intake: Intake, IV Titration 120 Amount Sodium Chloride 0.9% 1, 120 000 ml @ 40 mls/hr IV . Q24H [facility] Rx#:[id number] Blood Product 189 Ffp Pher Conval Covid19 189 Acda 1 Unit [id number] Output: Urine 600 Other: Voiding Method Diaper Incontinent # Voids 1 - Exam GENERAL EXAM: Alert, very pleasant, 89-year-old male patient on AirVo high flow oxygen device at 60 L and 88% FiO2 to maintain O2 saturations in the 90s. fairly comfortable in no apparent distress. HEAD: Normocephalic/atraumatic. EYES: Normal reaction of pupils, equal size. Conjunctiva pink, sclera white. NOSE: Clear with pink turbinates. THROAT: No erythema or exudates. NECK: No masses, no JVD, no thyroid enlargement, no adenopathy. CHEST: No chest wall deformity. Symmetrical expansion. LUNGS: Equal air entry with minimal wheezing, bilateral scattered rhonchi, left greater than right CVS: Regular rate and rhythm, normal S1 and S2, no gallops, no murmurs, no rubs ABDOMEN: Soft, nontender. No hepatosplenomegaly, normal bowel sounds, no guarding or rigidity. EXTREMITIES: No clubbing, no edema, no cyanosis, 2+ pulses and upper and lower extremities. MUSCULOSKELETAL: Muscle strength and tone normal. SPINE: No scoliosis or deformity SKIN: No rashes CENTRAL NERVOUS SYSTEM: No focal deficits, tone is normal in all 4 extremities. PSYCHIATRIC: Alert and oriented -3. Appropriate affect. Intact judgment and insight. - Labs CBC & Chem 7: 12/31/19 05:47 12/31/19 05:47 Labs: Abnormal Lab Results - Last 24 Hours (Table) 12/28/19 12/31/19 12/31/19 Range/Units 12:31 05:47 05:47 WBC 13.9 H (3.8-10.6) k/uL Neutrophils # 11.8 H (1.3-7.7) k/uL D-Dimer 1.75 H (<0.60) mg/L FEU BUN (9.0-27.0) mg/dL Est GFR (CKD-EPI)NonAf (60.0-200.0) BUN/Creatinine Ratio (12.00-20.00) Ratio Calcium (8.7-10.3) mg/dL AST (14-35) U/L Lactate Dehydrogenase (120-246) U/L C-Reactive Protein (0.0-0.8) mg/dL Total Protein (6.2-8.2) g/dL Albumin (3.80-4.90) g/dL Interleukin 6 24.7 H (<6.4) pg/mL 12/31/19 Range/Units 05:47 WBC (3.8-10.6) k/uL Neutrophils # (1.3-7.7) k/uL D-Dimer (<0.60) mg/L FEU BUN 58.0 H (9.0-27.0) mg/dL Est GFR (CKD-EPI)NonAf 59.6 L (60.0-200.0) BUN/Creatinine Ratio 52.73 H (12.00-20.00) Ratio Calcium 8.5 L (8.7-10.3) mg/dL AST 54 H (14-35) U/L Lactate Dehydrogenase 734 H (120-246) U/L C-Reactive Protein 3.1 H (0.0-0.8) mg/dL Total Protein 5.4 L (6.2-8.2) g/dL Albumin 3.40 L (3.80-4.90) g/dL Interleukin 6 (<6.4) pg/mL Microbiology - Last 24 Hours (Table) 12/24/19 21:27 Blood Culture - Final Blood No Growth after 144 hours Assessment and Plan Assessment: 1 Acute hypoxic respiratory failure secondary to CoVID 19 pneumonitis 2 Altered mental status and status post fall with no noted fractures 3 Rhabdomyolysis secondary to above 4 Fibrotic changes and subsegmental atelectasis cannot rule out early pneumonia 5 Elevated inflammatory markers secondary to above 6 Hearing disorder 7 Hypertension 8 History of bilateral PE 9 History of depression 10 Hyperlipidemia Plan: The patient was seen and evaluated by Dr. Gonsalez Chest x-ray and labs reviewed Continue on AirVo high flow oxygen Completed Remdesivir today Continue Lovenox, vitamin A, vitamin C, Pepcid, zinc, melatonin Continue dexamethasone, bronchodilators Continue isolation precautions He has been slow to progress Overall prognosis remains guarded, plan is to go to [facility] upon discharge We will continue to follow and make further recommendations based on his clinical status I, the cosigning physician, performed a history & physical examination of the patient. Lungs sounds with bilateral end expiratory wheeze, scattered rhonchi. Maintaining good O2 saturations in the 90s onAirVo high flow oxygen device at 60 L and 88% FiO2 with O2 saturations in the 90s. I discussed the assessment and plan of care with my nurse practitioner, Alessia Tineo. I attest to the above note as dictated by her.
[2019-12-31] MEDS: SODIUM CHLORIDE 0.9% 1,000 ML IV SCH (19:31)
[2019-12-31] MEDS: MELATONIN 5 MG TABLET PO SCH (19:37)
[2020-01-01] MEDS: MELATONIN 5 MG TABLET PO SCH ×2 (00:38→21:50)
[2020-01-01] MEDS: guaiFENesin 600 MG TABLET.ER PO SCH ×3 (00:38→21:50)
[2020-01-01] MEDS: LORazepam 2 MG/ML INJ IV PRN ×3 (06:59→23:48)
[2020-01-01 07:06] LABS: Basophils # (A) 0.1 k/uL (0-0.2); Basophils % (A) 1 %; Eosinophils % (A) 0 %; HCT 43.5 % (39.0-53.0); HGB 13.9 gm/dL (13.0-17.5); Lymphocytes # (A) 0.6 k/uL (1.0-4.8); Lymphocytes % (A) 4 %; MCH 29.3 pg (25.0-35.0); MCHC 31.8 g/dL (31.0-37.0); MCV 92.1 fL (80.0-100.0); Mean Platelet Volume 8.4; Monocytes # (A) 0.4 k/uL (0-1.0); Monocytes % (A) 3 %; Neutrophils # (A) 13.1 k/uL (1.3-7.7); Neutrophils % (A) 91 %; Platelet Count 334 k/uL (150-450); RBC 4.73 m/uL (4.30-5.90); RDW 13.9 % (11.5-15.5); WBC 14.4 k/uL (3.8-10.6)
[2020-01-01 07:19] LABS: D-Dimer 3.07 mg/L FEU (<0.60)
[2020-01-01] MEDS: ALBUTEROL HFA INHALER INHALATION SCH ×4 (07:30→19:14)
[2020-01-01 09:54] LABS: African American GFR (CKD) 69.1 (60.0-200.0); Albumin 3.5 g/dL (3.80-4.90); Albumin/Globulin Ratio 1.59 (1.60-3.17); Anion Gap 9.1 mmol/L (4.00-12.00); BUN/Creat Ratio 53.64 Ratio (12.00-20.00); C Reactive Protein 8.9 mg/dL (0.0-0.8); Calcium 8.6 mg/dL (8.7-10.3); Carbon Dioxide 26.9 mmol/L (21.6-31.8); Globulin 2.2 g/dL (1.6-3.3); Non-African American GFR(CKD) 59.6 (60.0-200.0); Potassium 4.6 mmol/L (3.5-5.5); Total Bilirubin 1.3 mg/dL (0.3-1.2); Total Protein 5.7 g/dL (6.2-8.2)
--- NOTE | 2020-01-01 10:01 | P.PN ---
Subjective Progress Note Date: 01/01/20 HISTORY OF PRESENT ILLNESS 89-year-old male one of my office patient of known for long time with multiple medical problem who was in the hospital last time back in February 12 for CVA, patient is known to have history of hypertension, hyperlipidemia, chronic kidney disease, chronic lower back pain, atherosclerotic heart disease, obstructive sleep apnea and valvular heart disease who apparently had fell at home and had significant altered mental status could not control and look for help his daughter finally found him on the floor of his house for in known. Of time most likely over 12 hours after he sustained a fall without loss of consciousness or seizure according to him he developed to have significant dyspnea and shortness of breath 911 was called patient brought to the emergency department at [facility] where was seen and evaluated ended up having multiple testing including CT of the brain and cervical spine showed small vessel disease with severe arthritis, chest x-ray showed left lower lobe pneumonia, X-ray with no finding consistent with fracture, CTA showed no evidence of pulmonary embolism but mild pulmonary fibrotic change in sup segmental atelectasis with pneumonia the left side. Patient is known to have history of coagulopathy and blood clot the past was on anticoagulation previously. Patient CK was significantly elevated was diagnosed with rhabdomyolysis acute kidney injury his troponin was mildly elevated as well. Patient was started on hydration started on Rocephin and azithromycin for left sided pneumonia with a? Of Covid vest still pending at this point 12/24: Patient denies any new complaints. COVID-19 testing remains pending. [facility] medicine and cardiology on consult. Repeat blood work reveals CBC with platelet count of 136, lymphocytes 0.6. Sodium 134, CO2 19, BUN 51 and creatinine 1.46. Blood sugar 108. Repeat CK is at 1948. Repeat troponins are 0.052 and 0.074. 12/25: Echocardiogram reveals EF of 50-55%, moderate concentric left hypertrophy, mild aortic valve sclerosis, trace aortic regurgitation, mild mitral calcification, mild mitral regurgitation. Patient has been seen by cardiology and acute coronary syndrome has been ruled out. Cardiology is now following on an as-needed basis. Patient is also been seen by pulmonary medicine and continued on current medications. Repeat lab work reveals sodium 135, potassium 4.8, chloride 104, CO2 20. BUN 69 creatinine 1.9. AST is improved at 73. CK improved at 1570. Covid testing is pending. Urinalysis revealed blood large, leukoesterase greater than 182, urine bacteria rare. Patient has a condom catheter in place. Repeat chest x-ray reveals basilar a telectasis. Difficult to exclude minimal pleural fluid. Breathing status is slowly improving but continues to have cough and shortness of breath with activity. Solu-Medrol will be decreased frequency to every 12 hours. Plan to continue IV fluids due to worsening creatinine. PT and OT consults will be added. 12/26, Covid was positive, on remdesivir still with shortness of breath, rhonchi, diminished appetite,, patient denies any aspiration, no diarrhea, no fever, Hernadez catheter draining clear urine, pulmonary following, on Solu-Medrol now switched to oral dexamethasone and vitamin C zinc, we will add Mucinex, maintained on IV fluids, creatinine is monitored closely and decrease amlodipine to 2.5 secondary to low blood pressures, nutritional supplementation with ensure. 12/27: Patient had Crestor distress early this morning, has been on the nonrebreather mask at 15 L has cannula, Lasix was given 1 dose, requested the nurse to notify Dr. De La O, and was placed on a of all high flow at 6 L, patient is currently having a meal, without any dysphagia, patient denies any fever or chills, has minimal dyspnea, d-dimer is elevated, on Lovenox 80 mg subcu, patient most likely cannot tolerate the CPAP protocol, secondary to elevated creatinine, however VQ scan also most likely would be not tolerated based on his difficulty in perofrming the procedure. We will await further recommendations from pulmonary . On IV levaquin, remdesivir second day tx. not on Plaquenil plaquenil secondary to previous study showing no relevance or efficacy of treatment, discussed with Dr. De La O also has prolonged qt, IL 6 levels requested Actemra possibly to be initiated, Dr. De La O to the side 12/28: The patient remains in isolation and breathing status is improved today. He is currently on nasal cannula high flow. He has been afebrile, heart rate 92, blood pressure 137/83. D-dimer is improved at 3.3. LDH 636. C-reactive protein 2.6. Patient is on day 3 of 5 of Remdesivir. Discussed discharge planning and he plans to go to [facility] at the time. Patient most likely will require repeat Covid 19 PCR testing prior to discharge. We anticipate he will most likely be here until Sunday of next week. 12/29: Patient evaluated this morning, remains in isolation. Per nurse patient will not keep high flow O2 on, will switch to nasal cannula to keep saturation above 90%. Vital signs are stable, he remains afebrile temp 97.3, heart rate 68, respiratory 22, blood pressure 117/77, 91% via nasal cannula. d-dimer continues to improve 1.79, LDH 747, C-reactive protein 2.7. He continues on Remdesivir. Patient will be more than likely discharge to [facility] once Covid testing is negative. 12/30: Patient evaluated this morning, he remains confused and frequently removes his oxygen. Safety sitters at the bedside to ensure patient keeps oxygen on. Overall patient has not improved very much, he continues to be hypoxic without high flow 02. Pro-calcitonin was negative, blood cultures show no growth today. He continues on Remdesivir and Decadron. 12/31: The patient has had some confusion and pulling off his mask. When he does pull off his mask pulse ox dropped down into the 70s. He is on BiPAP currently with pulse ox of 88%. Afebrile, heart rate 111.. Creatinine 1.1. LDH 962, C- reactive protein 8.9. Inflammatory markers are rising. REVIEW OF SYSTEMS CONSTITUTIONAL: Mildly overweight with mild respiratory distress. Denies fever. Denies chills. EYES: No icterus sclerae, no conjunctivitis. EARS, NOSE, MOUTH, THROAT, and FACE: No sore throat, lymphadenopathy, carotid bruits or deformity. RESPIRATORY: Mild cough wheezes-improving. CARDIOVASCULAR: Positive PND orthopnea and palpitation. GASTROINTESTINAL: No Abd pain, Nausea or vomiting, no Diarrhea or constipation, No GI Bleed, no distention or masses. GENITOURINARY: Decrease urine output with incontinence. INTEGUMENT/BREAST: Back pain and bilateral leg pain and worsening of the left hip. HEMATOLOGIC/LYMPHATIC: Negative for bleed or purpura. MUSCULOSKELTAL: Negative for Myalgia or arthralgia significant pain and discomfort of the lower back area.. NEURLOGICAL: Altered mental status with generalized weakness no focal deficit. BEHAVIORAL/PSYCH: Negative. Slight worsening memory. ENDOCRINE: Negative. PHYSICAL EXAMINATION General Appearance: Alert, cooperative with no respiratory distress. Neck HEENT: Supple, no lymphadenopathy, no thyroid enlargement, no carotid bruits. Lungs: Decreased breath sound at bases specially in the left side positive for rhonchi with mild crackles mild expiratory wheezes. Chest Wall: Decrease expansion with deep inspiration no tenderness and no deformity was found on exam, no costochondral pain or discomfort. Heart: Regular rate and rhythm, S1, S2 positive history positive 2/6 systolic murmur in the apex Back: Symmetric, mild curvature with slight discomfort lumbar spine area with no open sore or area no rash.. Abdomen: Soft, non-tender, bowel sounds active all four quadrants, distention with no sign of obstruction no tenderness rebound or rigidity. Extremities: Extremities 1+ edema . Pulses: Decreased bilaterally.. Skin: Skin color, texture, tugor normal, no rashes or lesions. Neurologic: Alert oriented to person, cranial nerves II through XII intact, generalized weaknessp. ASSESSMENT AND PLAN 1 metabolic encephalopathy secondary to pneumonia, Covid pneumonitis, rhabdomyolysis. Patient has completed course of Remdesivir. Continue oxygen supplementation. Currently on BiPAP. 2 post fall with generalized a bruise no major bone trauma this point. 3 left-sided pneumonia. Covid pneumonitis. 4 possible Covid: Continue Remdesivir, and Decadron. 5 acute kidney injury with rhabdomyolysis. 6 rhabdomyolysis. 7 elevated troponin, acute coronary syndrome ruled out. Cardiology consult appreciated. Cardiology has signed off. 8 valvular heart disease: Patient is known to have mild pulmonary hypertension with mild mitral and tricuspid regurgitation, was seeing cardiology regular basis. 9 chronic reactive airway/mild COPD: Patient can benefit from DuoNeb and O2 at this point. 10 severe GERD: Remain on Pepcid. 11 history of CVA: Patient was on Plavix and 81 mg aspirin. 12 previous history of PE and DVT was treated previously and off anticoagulation currently. 13 chronic lower back pain post back surgery . Continue Robaxin. 14 hypertension: Continue amlodipine 5 mg a day. 15 hyperlipidemia: On atorvastatin 40 mg daily. 16 GI prophylaxis: On PPI. 17 DVT prophylaxis: Early mobilization and knee-high SHEREE hose and Venodyne boots. Lovenox. CODE STATUS: Full code. DISCHARGE PLAN [facility] once stabilized. Impression and plan of care have been directed as dictated by the signing physician. Cece Cheng nurse practitioner acting as scribe for signing physici an. Objective - Vital Signs Vital signs: Vital Signs Temp 96.8 F L 01/01/20 07:00 Pulse 111 H 01/01/20 07:00 Resp 20 12/31/19 19:03 BP 121/47 01/01/20 07:00 Pulse Ox 88 L 01/01/20 07:00 Intake & Output 12/31/19 01/01/20 01/01/20 18:59 06:59 18:59 Intake Total 120 Output Total 575 Balance -455 Intake: Intake, IV Titration 120 Amount Sodium Chloride 0.9% 1, 120 000 ml @ 40 mls/hr IV . Q24H [facility] Rx#:[id number] Output: Urine 575 Other: Voiding Method Diaper Incontinent # Voids 1 - Labs CBC & Chem 7: 01/01/20 05:59 12/31/19 05:47 Labs: Abnormal Lab Results - Last 24 Hours (Table) 12/31/19 01/01/20 01/01/20 Range/Units 05:47 05:59 05:59 WBC 14.4 H (3.8-10.6) k/uL Neutrophils # 13.1 H (1.3-7.7) k/uL Lymphocytes # 0.6 L (1.0-4.8) k/uL D-Dimer 3.07 H (<0.60) mg/L FEU BUN 58.0 H (9.0-27.0) mg/dL Est GFR (CKD-EPI)NonAf 59.6 L (60.0-200.0) BUN/Creatinine Ratio 52.73 H (12.00-20.00) Ratio Calcium 8.5 L (8.7-10.3) mg/dL AST 54 H (14-35) U/L Lactate Dehydrogenase 734 H (120-246) U/L C-Reactive Protein 3.1 H (0.0-0.8) mg/dL Total Protein 5.4 L (6.2-8.2) g/dL Albumin 3.40 L (3.80-4.90) g/dL
[2020-01-01] MEDS: FAMOTIDINE 20 MG TAB PO SCH (11:07)
[2020-01-01] MEDS: dexAMETHasone 2 MG TAB PO SCH (11:07)
[2020-01-01] MEDS: ASCORBIC ACID 500 MG TAB PO SCH (11:07)
[2020-01-01] MEDS: CLOPIDOGREL 75 MG TAB PO SCH (11:07)
[2020-01-01] MEDS: amLODIPine 2.5 MG TAB PO SCH (11:07)
[2020-01-01] MEDS: CHOLECALCIFEROL 1,000 UNIT TAB PO SCH (11:07)
[2020-01-01] MEDS: ASPIRIN 81 MG PO SCH (11:07)
[2020-01-01] MEDS: FLUTICASONE 50MCG/SPRAY NASAL 16GM EA NOSTRIL SCH (11:09)
[2020-01-01] MEDS: FINASTERIDE 5 MG TAB PO SCH (11:09)
[2020-01-01] MEDS: methocarbamoL 750 MG TAB PO SCH (11:10)
[2020-01-01] MEDS: ZINC SULFATE 220 MG CAP PO SCH (11:10)
[2020-01-01] MEDS ORDERED: FUROSEMIDE 10 MG/ML 4 ML VIAL IV STA (11:37)
[2020-01-01] MEDS: ENOXAPARIN 60 MG/0.6 ML SYRINGE SQ SCH ×2 (13:54→21:38)
--- NOTE | 2020-01-01 16:27 | P.PN ---
Subjective Progress Note Date: 01/01/20 Principal diagnosis: Altered mental status secondary to metabolic encephalopathy This is an 89-year-old gentleman who follows with Dr. Bautista as his primary care provider. He has a history of hypertension, hyperlipidemia, osteoarthritis, hearing disorder, depression. Lifelong nonsmoker. He was brought into the emergency room yesterday by his daughter after finding him sitting in chair soiled and had not eaten. He states he had taken a fall and was able to crawl to the chair to get himself up. Computed tomography scan of the head reveals no acute intracranial abnormality. CT of the lumbar spine revealed no compression fractures. Some degenerative changes noted. His x-ray revealed bilateral pulmonary airspace infiltrate and atelectasis. No pneumothorax. Pelvis x-ray reveals no fracture. CT angiogram ruled out pulmonary embolism. There is pulmonary fibrotic changes and subsegmental atelectasis. We are consulted for the same. He is seen today in consultation on the regular medical floor. He is currently resting in bed. Awake and alert. Somewhat slow to respond. He did receive Dilaudid for pain medication earlier this morning. He is quite hard of hearing. He is maintaining O2 saturations in the 90s on 3 L/m per nasal cannula. His been afebrile. Hemodynamically stable. White count 4.7. Hemoglobin 13.9. Sodium 134. Potassium 4.2. Creatinine 1.46. Creatinine kinase 1948. Troponin 0.048, 0.052, 0.074. His been initiated on IV Solu-Medr ol, Levaquin. Blood cultures pending. Urine culture pending. CoVID 19 screen pending. On 12/26/2019 patient seen in follow-up on general medical surgical floor. Patient was given a dose of Lasix yesterday, was given breathing treatments for wheezing, his had no fever overnight , his Covid 19 testing is still pending. Follow-up chest x-ray has been reviewed showing bibasilar atelectasis. Keira athing has improved somewhat, has a persistent cough and exertional dyspnea, but has had no acute events overnight. Patient remains on Levaquin for empiric coverage, IV steroids and breathing treatments, one dose of IV Lasix was given yesterday, had fluid balance is difficult to estimate, over on today's labs his creatinine did slightly worsened and is up to 1.9 at today's labs. His CK is coming down, down to 1570. The patient continues on IV hydration currently at 75 ML per hour, The patient is seen today 12/27/2019 in follow-up on the regular medical floor. He is currently awake and alert. He is currently afebrile. Hemodynamically stable. He is now up to 15 L high flow nasal cannula to maintain O2 saturations in the 90s. Yesterday's chest x-ray revealed basilar atelectasis. Blood culture reveals no growth. Sodium 133. Potassium 4.8. Creatinine 1.64. Creatinine kinase 885. D-dimer 8.49. Carrion virus detected now. He will be initiated on REemdesivir, vitamin C, vitamin D, melatonin, Pepcid, zinc and Lovenox. Continue Solu-Medrol, oral Levaquin, bronchodilators. 0.9 normal saline at 75 ML's per hour. The patient is seen today 12/28/2019 in follow-up on the regular medical floor. He is awake and alert. He did develop worsening shortness of breath and hypoxemia earlier this morning. He is now placed on AirVo high flow oxygen device at 60 L and 93% FiO2 the current O2 saturation at 93%. Chest x-ray reveals basilar atelectasis with increasing infiltrate of the left lower lobe. Blood culture reveals no growth. He remains on Levaquin. This is day 2 of Remd esivir. Continued on zinc, melatonin, vitamin C, vitamin D, dexamethasone. 0.9 normal saline at 75 ML's per hour. On 12/29/2019 patient seen in follow-up on the general medical surgical floor. He remains on high flow oxygen per Airvo at 60 L, and FiO2 of 90% and satting about 92%, appears to be in no acute distress, but generally weak. Afebrile, hemodynamically stable, he does become very short of breath with any activity, he has been mostly on bed rest since admission. His Covid 19 PCR came back positive, he was started on Remdesivir, and today is his second day of treatment, in addition to empiric antibiotics, Lovenox, Levaquin, and to oral Decadron. His d-dimer came down to 3.3 from 8.49 on previous labs, and his Lovenox dose is currently 60 mg subcu twice daily, LDH is 636, and CRP is 2.6. Creatinine has improved and is down to 1.0. His chest x-ray today shows multifocal changes that are stable, could be related to Covid 19 multifocal pneumonia On 12/30/2019 patient seen in follow-up on the general medical surgical floor, apparently patient has been confused, his been frequently removing his oxygen, when we walked 10 patient had his oxygen removed and on the floor, and appeared obviously cyanotic, and confused and his pulse ox was found to be 57% on room air, he was placed back on oxygen, he is on AIRVO at 60 L/m, and FiO2 of 95%, and his pulse ox is at 90%, his been afebrile, hemodynamically patient is stable, currently breathing is labored in view of severe hypoxemia, no significant cough or congestion, he is receiving Remdesivir, today is day 3 of treatment, he is on oral Decadron, and Lovenox 60 mg twice daily. Today's labs have been reviewed, showing Levatol, 12.7, hemoglobin is 14.5, lymphocyte count is 0.9, d-dimer is trending down down to 1.79, his renal profile has improved, BUN is down to 61 and creatinine is 1.3, his LDH is up slightly up to 747 on today's labs, CRP is 2.7, pro calcitonin level was negative at 0.06, and his antibiotics have been discontinued. Blood culture has shown no growth. Patient did receive a dose of IV Lasix yesterday, he has produced 1.4 L in urine output, and he is in negative fluid balance, obtain follow-up chest x-ray tomorrow. The patient is seen today 12/31/2019 in follow-up on the regular medical floor. He is currently awake and alert. He is sitting up in a chair at the bedside. He remains on AirVo high flow oxygen at 60 L and 88% FiO2 to maintain O2 saturation in the 90s. He is currently afebrile. White count 13.9. Hemoglobin 13.2. D-dimer 1.75. Sodium 144. Potassium 4.6. Creatinine 1.1. LDH 734. C- reactive protein 3.1. Chest x-ray continues to show bilateral airspace disease as well as a persistent elevation of the left hemidiaphragm. He has completed his course of REM does severe today. Continued on dexamethasone. The patient is seen today 01/01/2020 in follow-up on the regular medical floor. He is currently resting in bed. He remains quite weak and debilitated. He is still on BiPAP and requiring 100% FiO2 to maintain O2 saturations in the high 80s low 90s. He's been afebrile. White count 14.4. Hemoglobin 13.9. Lymphocytes 0.6. D-dimer 3.07. Sodium 146. Potassium 4.6. Creatinine 1.1. LDH 962. C-reactive protein 8.9. He has completed his course of Remdesivir yesterday. He remains on Lovenox 60 mg subcu twice a day, dexamethasone, melatonin, zinc, vitamin C and E, Pepcid. He has been slow to progress. He is a DO NOT RESUSCITATE/DO NOT INTUBATE CODE STATUS. Objective - Vital Signs Vital signs: Vital Signs Temp 96.6 F L 01/01/20 15:00 Pulse 117 H 01/01/20 15:00 Resp 20 12/31/19 19:03 BP 114/52 01/01/20 15:00 Pulse Ox 88 L 01/01/20 15:00 Intake & Output 12/31/19 01/01/20 01/01/20 18:59 06:59 18:59 Intake Total 120 Output Total 575 Balance -455 Intake: Intake, IV Titration 120 Amount Sodium Chloride 0.9% 1, 120 000 ml @ 40 mls/hr IV . Q24H [facility] Rx#:[id number] Output: Urine 575 Other: Voiding Method Diaper Diaper Incontinent Incontinent # Voids 1 - Exam GENERAL EXAM: Alert, weak 89-year-old male patient on BiPAP 01/30 in the 100% FiO2. HEAD: Normocephalic/atraumatic. EYES: Normal reaction of pupils, equal size. Conjunctiva pink, sclera white. NOSE: Clear with pink turbinates. THROAT: No erythema or exudates. NECK: No masses, no JVD, no thyroid enlargement, no adenopathy. CHEST: No chest wall deformity. Symmetrical expansion. LUNGS: Equal air entry with minimal wheezing, bilateral scattered rhonchi, left greater than right CVS: Regular rate and rhythm, normal S1 and S2, no gallops, no murmurs, no rubs ABDOMEN: Soft, nontender. No hepatosplenomegaly, normal bowel sounds, no guarding or rigidity. EXTREMITIES: No clubbing, no edema, no cyanosis, 2+ pulses and upper and lower extremities. MUSCULOSKELETAL: Muscle strength and tone normal. SPINE: No scoliosis or deformity SKIN: No rashes CENTRAL NERVOUS SYSTEM: No focal deficits, tone is normal in all 4 extremities. PSYCHIATRIC: Alert and oriented -3. Appropriate affect. Intact judgment and insight. - Labs CBC & Chem 7: 01/01/20 05:59 01/01/20 05:59 Labs: Abnormal Lab Results - Last 24 Hours (Table) 01/01/20 01/01/20 01/01/20 Range/Units 05:59 05:59 05:59 WBC 14.4 H (3.8-10.6) k/uL Neutrophils # 13.1 H (1.3-7.7) k/uL Lymphocytes # 0.6 L (1.0-4.8) k/uL D-Dimer 3.07 H (<0.60) mg/L FEU Sodium 146 H (135-145) mmol/L Chloride 110 H (96-109) mmol/L BUN 59.0 H (9.0-27.0) mg/dL Est GFR (CKD-EPI)NonAf 59.6 L (60.0-200.0) BUN/Creatinine Ratio 53.64 H (12.00-20.00) Ratio Calcium 8.6 L (8.7-10.3) mg/dL Total Bilirubin 1.3 H (0.3-1.2) mg/dL AST 54 H (14-35) U/L Lactate Dehydrogenase 962 H (120-246) U/L C-Reactive Protein 8.9 H (0.0-0.8) mg/dL Total Protein 5.7 L (6.2-8.2) g/dL Albumin 3.50 L (3.80-4.90) g/dL Albumin/Globulin Ratio 1.59 L (1.60-3.17) g/dL Assessment and Plan Assessment: 1 Acute hypoxic respiratory failure secondary to CoVID 19 pneumonitis 2 Altered mental status and status post fall with no noted fractures 3 Rhabdomyolysis secondary to above 4 Fibrotic changes and subsegmental atelectasis cannot rule out early pneumonia 5 Elevated inflammatory markers secondary to above 6 Hearing disorder 7 Hypertension 8 History of bilateral PE 9 History of depression 10 Hyperlipidemia Plan: The patient was seen and evaluated by Dr. Gonsalez Currently on BiPAP at 100% to maintain O2 saturation in the upper 80s Completed Remdesivir yesterday Continue Lovenox, vitamin A, vitamin C, Pepcid, zinc, melatonin Continue dexamethasone, bronchodilators Continue isolation precautions He has been slow to progress Overall prognosis remains guarded, may need to consider palliative/hospice/comfort care We will continue to follow and make further recommendations based on his clinical status I, the cosigning physician, performed a history & physical examination of the patient. Lungs sounds with bilateral end expiratory wheeze, scattered rhonchi. Maintaining O2 saturations in the high 80s and low 90s on BiPAP 12/5 and FiO2 her percent. I discussed the assessment and plan of care with my nurse practitioner, Alessia Tineo. I attest to the above note as dictated by her.
[2020-01-01] MEDS ORDERED: ACETAMINOPHEN TAB 500 MG TAB PO PRN (20:22)
[2020-01-01] MEDS ORDERED: ACETAMINOPHEN SUPPOSITORY 650 MG SUPP RECTAL PRN (20:52)
[2020-01-01] MEDS: SODIUM CHLORIDE 0.9% 1,000 ML IV SCH (21:50)
[2020-01-02] MEDS ORDERED: ACETAMINOPHEN IV (For NPO) 1,000 MG in EMPTY BAG 1 BAG IVPB ONE (00:08)
[2020-01-02 07:50] VITALS: BP 86/55; PULSE 103; RESP 40; TEMP 97.5
[2020-01-02] MEDS: amLODIPine 2.5 MG TAB PO SCH (08:23)
[2020-01-02] MEDS: FINASTERIDE 5 MG TAB PO SCH (08:24)
[2020-01-02] MEDS: CLOPIDOGREL 75 MG TAB PO SCH (08:24)
[2020-01-02] MEDS: FLUTICASONE 50MCG/SPRAY NASAL 16GM EA NOSTRIL SCH (08:24)
[2020-01-02] MEDS: ENOXAPARIN 60 MG/0.6 ML SYRINGE SQ SCH (08:24)
[2020-01-02] MEDS: ASPIRIN 81 MG PO SCH (08:24)
[2020-01-02] MEDS: FAMOTIDINE 20 MG TAB PO SCH (08:24)
[2020-01-02] MEDS: dexAMETHasone 2 MG TAB PO SCH (08:24)
[2020-01-02] MEDS: CHOLECALCIFEROL 1,000 UNIT TAB PO SCH (08:24)
[2020-01-02] MEDS: ASCORBIC ACID 500 MG TAB PO SCH (08:24)
[2020-01-02] MEDS: methocarbamoL 750 MG TAB PO SCH (08:25)
[2020-01-02] MEDS: ZINC SULFATE 220 MG CAP PO SCH (08:25)
[2020-01-02] MEDS: guaiFENesin 600 MG TABLET.ER PO SCH (08:25)
[2020-01-02] MEDS: ALBUTEROL HFA INHALER INHALATION SCH (08:28)
--- NOTE | 2020-01-02 10:29 | XR ---
EXAMINATION TYPE: XR chest 1V portable DATE OF EXAM: 01/02/2020 COMPARISON: Prior chest x-ray 12/31/2019 HISTORY: Pneumonia, Covid TECHNIQUE: Single frontal view of the chest is obtained. FINDINGS: Bilateral airspace disease is again noted. No evident pneumothorax. Heart is obscured. The re are overlying cardiac leads artifacts. Exam is expiratory. IMPRESSION: There may be some slight improved aeration at the right lung base although there are dif ferences in technique, exam is expiratory and rotated. Follow-up is recommended.
--- NOTE | 2020-01-02 13:07 | P.DS ---
Providers Date of admission: 12/24/19 21:01 Expected date of discharge: 01/02/20 Attending physician: Prince Bautista Primary care physician: Prince Bautista [facility] Course: HISTORY OF PRESENT ILLNESS 89-year-old male one of my office patient of known for long time with multiple medical problem who was in the hospital last time back in February 12 for CVA, patient is known to have history of hypertension, hyperlipidemia, chronic kidney disease, chronic lower back pain, atherosclerotic heart disease, obstructive sleep apnea and valvular heart disease who apparently had fell at home and had significant altered mental status could not control and look for help his daughter finally found him on the floor of his house for in known. Of time most likely over 12 hours after he sustained a fall without loss of consciousness or seizure according to him he developed to have significant dyspnea and shortness of breath 911 was called patient brought to the emergency department at [facility] where was seen and evaluated ended up having multiple testing including CT of the brain and cervical spine showed small vessel disease with severe arthritis, chest x-ray showed left lower lobe pneumonia, X-ray with no finding consistent with fracture, CTA showed no evidence of pulmonary embolism but mild pulmonary fibrotic change in sup segmental atelectasis with pneumonia the left side. Patient is known to have history of coagulopathy and blood clot the past was on anticoagulation previously. Patient CK was significantly elevated was diagnosed with rhabdomyolysis acute kidney injury his troponin was mildly elevated as we ll. Patient was started on hydration started on Rocephin and azithromycin for left sided pneumonia with a? Of Covid vest still pending at this point 12/24: Patient denies any new complaints. COVID-19 testing remains pending. However medicine and cardiology on consult. Repeat blood work reveals CBC with platelet count of 136, lymphocytes 0.6. Sodium 134, CO2 19, BUN 51 and creatinine 1.46. Blood sugar 108. Repeat CK is at 1948. Repeat troponins are 0.052 and 0.074. 12/25: Echocardiogram reveals EF of 50-55%, moderate concentric left hypertrophy, mild aortic valve sclerosis, trace aortic regurgitation, mild mitral calcification, mild mitral regurgitation. Patient has been seen by cardiology and acute coronary syndrome has been ruled out. Cardiology is now following on an as-needed basis. Patient is also been seen by pulmonary medicine and continued on current medications. Repeat lab work reveals sodium 135, potassium 4.8, chloride 104, CO2 20. BUN 69 creatinine 1.9. AST is improved at 73. CK improved at 1570. Covid testing is pending. Urinalysis revealed blood large, leukoesterase greater than 182, urine bacteria rare. Patient has a condom catheter in place. Repeat chest x-ray reveals basilar atelectasis. Difficult to exclude minimal pleural fluid. Breathing status is slowly improving but continues to have cough and shortness of breath with activity. Solu-Medrol will be decreased frequency to every 12 hours. Plan to continue IV fluids due to worsening creatinine. PT and OT consults will be added. 12/26, Covid was positive, on remdesivir still with shortness of breath, rhonchi, diminished appetite,, patient denies any aspiration, no diarrhea, no fever, Hernadez catheter draining clear urine, pulmonary following, on Solu-Medrol now switched to oral dexamethasone and vitamin C zinc, we will add Mucinex, maintained on IV fluids, creatinine is monitored closely and decrease amlodipine to 2.5 secondary to low blood pressures, nutritional supplementation with ensure. 12/27: Patient had Crestor distress early this morning, has been on the nonrebreather mask at 15 L has cannula, Lasix was given 1 dose, requested the nurse to notify Dr. De La O, and was placed on a of all high flow at 6 L, patient is currently having a meal, without any dysphagia, patient denies any fever or chills, has minimal dyspnea, d-dimer is elevated, on Lovenox 80 mg s ubcu, patient most likely cannot tolerate the CPAP protocol, secondary to elevated creatinine, however VQ scan also most likely would be not tolerated based on his difficulty in perofrming the procedure. We will await further recommendations from pulmonary . On IV levaquin, remdesivir second day tx. not on Plaquenil plaquenil secondary to previous study showing no relevance or efficacy of treatment, discussed with Dr. De La O also has prolonged qt, IL 6 levels requested Actemra possibly to be initiated, Dr. De La O to the side 12/28: The patient remains in isolation and breathing status is improved today. He is currently on nasal cannula high flow. He has been afebrile, heart rate 92, blood pressure 137/83. D-dimer is improved at 3.3. LDH 636. C-reactive protein 2.6. Patient is on day 3 of 5 of Remdesivir. Discussed discharge planning and he plans to go to [facility] at the time. Patient most likely will require repeat Covid 19 PCR testing prior to discharge. We anticipate he will most likely be here until Sunday of next week. 12/29: Patient evaluated this morning, remains in isolation. Per nurse patient will not keep high flow O2 on, will switch to nasal cannula to keep saturation above 90%. Vital signs are stable, he remains afebrile temp 97.3, heart rate 68, respiratory 22, blood pressure 117/77, 91% via nasal cannula. d-dimer continues to improve 1.79, LDH 747, C-reactive protein 2.7. He continues on Remdesivir. Patient will be more than likely discharge to [facility] once Covid testing is negative. 12/30: Patient evaluated this morning, he remains confused and frequently removes his oxygen. Safety sitters at the bedside to ensure patient keeps oxygen on. Overall patient has not improved very much, he continues to be hypoxic without high flow 02. Pro-calcitonin was negative, blood cultures show no growth today. He continues on Remdesivir and Decadron. 12/31: The patient has had some confusion and pulling off his mask. When he does pull off his mask pulse ox dropped down into the 70s. He is on BiPAP currently with pulse ox of 88%. Afebrile, heart rate 111.. Creatinine 1.1. LDH 962, C-reactive protein 8.9. Inflammatory markers are rising. 01/01: Today, patient is unresponsive, mottled, hypotensive with blood pressure 86/55, he has been on BiPAP at 100% and unable to obtain pulse ox. Comfort measures has been put in place and all aggressive treatment has been stopped. Patient was made no code by the family yesterday. Patient on the afternoon of January 01. Please see nursing augmentation for detail. ASSESSMENT AND PLAN 1 metabolic encephalopathy secondary to pneumonia, Covid pneumonitis, rhabdomyolysis. 2 post fall with generalized a bruise no major bone trauma this point. 3 left-sided pneumonia. Covid pneumonitis. 4 Covid 5 acute kidney injury with rhabdomyolysis. 6 rhabdomyolysis. 7 elevated troponin, acute coronary syndrome ruled out. 8 valvular heart disease 9 chronic reactive airway/mild COPD 10 severe GERD 11 history of CVA 12 previous history of PE and DVT 13 chronic lower back pain post back surgery 14 hypertension 15 hyperlipidemia Impression and plan of care have been directed as dictated by the signing physician. Ccee Cheng nurse practitioner acting as scribe for signing physici an. Patient Condition at Discharge: Undetermined Plan - Discharge Summary Discharge Rx Participant: Yes New Discharge Prescriptions: No Action Omeprazole [PriLOSEC] 20 mg PO DAILY hydrOXYzine HCL [Atarax] 25 mg PO DAILY Meloxicam [Mobic] 7.5 mg PO DAILY methocarbamoL [Robaxin] 750 mg PO DAILY amLODIPine [Norvasc] 5 mg PO DAILY #30 tab Clopidogrel [Plavix] 75 mg PO DAILY #30 tab lisinopriL [Zestril] 20 mg PO BID #60 tab Glucosam/Emmanuel-Msm1/C/James/Bosw [Glucosamine-Chondroitin Tablet] 1 tab PO DAILY Oxybutynin Chloride 5 mg PO TID Aspirin [Adult Low Dose Aspirin EC] 81 mg PO DAILY Finasteride [Proscar] 5 mg PO DAILY hydroCHLOROthiazide 25 mg PO DAILY Atorvastatin [Lipitor] 40 mg PO HS Discharge Medication List Omeprazole [PriLOSEC] 20 mg PO DAILY 07/27/14 [History] hydrOXYzine HCL [Atarax] 25 mg PO DAILY 07/27/14 [History] Meloxicam [Mobic] 7.5 mg PO DAILY 02/11/18 [History] methocarbamoL [Robaxin] 750 mg PO DAILY 02/11/18 [History] Clopidogrel [Plavix] 75 mg PO DAILY #30 tab 02/14/18 [Rx] amLODIPine [Norvasc] 5 mg PO DAILY #30 tab 02/14/18 [Rx] lisinopriL [Zestril] 20 mg PO BID #60 tab 02/14/18 [Rx] Aspirin [Adult Low Dose Aspirin EC] 81 mg PO DAILY 12/24/19 [History] Atorvastatin [Lipitor] 40 mg PO HS 12/24/19 [History] Finasteride [Proscar] 5 mg PO DAILY 12/24/19 [History] Glucosam/Emmanuel-Msm1/C/James/Bosw [Glucosamine-Chondroitin Tablet] 1 tab PO DAILY 12/24/19 [History] Oxybutynin Chloride 5 mg PO TID 12/24/19 [History] hydroCHLOROthiazide 25 mg PO DAILY 12/24/19 [History] Follow up Appointment(s)/Referral(s): Prince Bautista MD [Primary Care Provider] - 1-2 days - Preliminary Cause of Preliminary Cause of : COVID pneumonitis
--- NOTE | 2020-01-02 14:05 | P.PN ---
Subjective Progress Note Date: 01/02/20 Principal diagnosis: Altered mental status secondary to metabolic encephalopathy This is an 89-year-old gentleman who follows with Dr. Bautista as his primary care provider. He has a history of hypertension, hyperlipidemia, osteoarthritis, hearing disorder, depression. Lifelong nonsmoker. He was brought into the emergency room yesterday by his daughter after finding him sitting in chair soiled and had not eaten. He states he had taken a fall and was able to crawl to the chair to get himself up. Computed tomography scan of the head reveals no acute intracranial abnormality. CT of the lumbar spine revealed no compression fractures. Some degenerative changes noted. His x-ray revealed bilateral pulmonary airspace infiltrate and atelectasis. No pneumothorax. Pelvis x-ray reveals no fracture. CT angiogram ruled out pulmonary embolism. There is pulmonary fibrotic changes and subsegmental atelectasis. We are consulted for the same. He is seen today in consultation on the regular medical floor. He is currently resting in bed. Awake and alert. Somewhat slow to respond. He did receive Dilaudid for pain medication earlier this morning. He is quite hard of hearing. He is maintaining O2 saturations in the 90s on 3 L/m per nasal cannula. His been afebrile. Hemodynamically stable. White count 4.7. Hemoglobin 13.9. Sodium 134. Potassium 4.2. Creatinine 1.46. Creatinine kinase 1948. Troponin 0.048, 0.052, 0.074. His been initiated on IV Solu-Medr ol, Levaquin. Blood cultures pending. Urine culture pending. CoVID 19 screen pending. On 12/26/2019 patient seen in follow-up on general medical surgical floor. Patient was given a dose of Lasix yesterday, was given breathing treatments for wheezing, his had no fever overnight , his Covid 19 testing is still pending. Follow-up chest x-ray has been reviewed showing bibasilar atelectasis. Keira athing has improved somewhat, has a persistent cough and exertional dyspnea, but has had no acute events overnight. Patient remains on Levaquin for empiric coverage, IV steroids and breathing treatments, one dose of IV Lasix was given yesterday, had fluid balance is difficult to estimate, over on today's labs his creatinine did slightly worsened and is up to 1.9 at today's labs. His CK is coming down, down to 1570. The patient continues on IV hydration currently at 75 ML per hour, The patient is seen today 12/27/2019 in follow-up on the regular medical floor. He is currently awake and alert. He is currently afebrile. Hemodynamically stable. He is now up to 15 L high flow nasal cannula to maintain O2 saturations in the 90s. Yesterday's chest x-ray revealed basilar atelectasis. Blood culture reveals no growth. Sodium 133. Potassium 4.8. Creatinine 1.64. Creatinine kinase 885. D-dimer 8.49. Carrion virus detected now. He will be initiated on REemdesivir, vitamin C, vitamin D, melatonin, Pepcid, zinc and Lovenox. Continue Solu-Medrol, oral Levaquin, bronchodilators. 0.9 normal saline at 75 ML's per hour. The patient is seen today 12/28/2019 in follow-up on the regular medical floor. He is awake and alert. He did develop worsening shortness of breath and hypoxemia earlier this morning. He is now placed on AirVo high flow oxygen device at 60 L and 93% FiO2 the current O2 saturation at 93%. Chest x-ray reveals basilar atelectasis with increasing infiltrate of the left lower lobe. Blood culture reveals no growth. He remains on Levaquin. This is day 2 of Remd esivir. Continued on zinc, melatonin, vitamin C, vitamin D, dexamethasone. 0.9 normal saline at 75 ML's per hour. On 12/29/2019 patient seen in follow-up on the general medical surgical floor. He remains on high flow oxygen per Airvo at 60 L, and FiO2 of 90% and satting about 92%, appears to be in no acute distress, but generally weak. Afebrile, hemodynamically stable, he does become very short of breath with any activity, he has been mostly on bed rest since admission. His Covid 19 PCR came back positive, he was started on Remdesivir, and today is his second day of treatment, in addition to empiric antibiotics, Lovenox, Levaquin, and to oral Decadron. His d-dimer came down to 3.3 from 8.49 on previous labs, and his Lovenox dose is currently 60 mg subcu twice daily, LDH is 636, and CRP is 2.6. Creatinine has improved and is down to 1.0. His chest x-ray today shows multifocal changes that are stable, could be related to Covid 19 multifocal pneumonia On 12/30/2019 patient seen in follow-up on the general medical surgical floor, apparently patient has been confused, his been frequently removing his oxygen, when we walked 10 patient had his oxygen removed and on the floor, and appeared obviously cyanotic, and confused and his pulse ox was found to be 57% on room air, he was placed back on oxygen, he is on AIRVO at 60 L/m, and FiO2 of 95%, and his pulse ox is at 90%, his been afebrile, hemodynamically patient is stable, currently breathing is labored in view of severe hypoxemia, no significant cough or congestion, he is receiving Remdesivir, today is day 3 of treatment, he is on oral Decadron, and Lovenox 60 mg twice daily. Today's labs have been reviewed, showing Levatol, 12.7, hemoglobin is 14.5, lymphocyte count is 0.9, d-dimer is trending down down to 1.79, his renal profile has improved, BUN is down to 61 and creatinine is 1.3, his LDH is up slightly up to 747 on today's labs, CRP is 2.7, pro calcitonin level was negative at 0.06, and his antibiotics have been discontinued. Blood culture has shown no growth. Patient did receive a dose of IV Lasix yesterday, he has produced 1.4 L in urine output, and he is in negative fluid balance, obtain follow-up chest x-ray tomorrow. The patient is seen today 12/31/2019 in follow-up on the regular medical floor. He is currently awake and alert. He is sitting up in a chair at the bedside. He remains on AirVo high flow oxygen at 60 L and 88% FiO2 to maintain O2 saturation in the 90s. He is currently afebrile. White count 13.9. Hemoglobin 13.2. D-dimer 1.75. Sodium 144. Potassium 4.6. Creatinine 1.1. LDH 734. C- reactive protein 3.1. Chest x-ray continues to show bilateral airspace disease as well as a persistent elevation of the left hemidiaphragm. He has completed his course of REM does severe today. Continued on dexamethasone. The patient is seen today 01/01/2020 in follow-up on the regular medical floor. He is currently resting in bed. He remains quite weak and debilitated. He is still on BiPAP and requiring 100% FiO2 to maintain O2 saturations in the high 80s low 90s. He's been afebrile. White count 14.4. Hemoglobin 13.9. Lymphocytes 0.6. D-dimer 3.07. Sodium 146. Potassium 4.6. Creatinine 1.1. LDH 962. C-reactive protein 8.9. yesterday. He remains on Lovenox 60 mg subcu twice a day, dexamethasone, melatonin, zinc, vitamin C and E, Pepcid. He has been slow to progress. He is a DO NOT RESUSCITATE/DO NOT INTUBATE CODE STATUS. The patient was seen today 01/02/2020 in follow-up on the regular medical floor. He remains on BiPAP at 100% FiO2 without much improvement in his oxygen saturations. He has been slow to progress. He has completed his course of Remdesivir. Chest x-ray continues to show bilateral airspace disease with very minimal improvement possibly in the right lower lung. Objective - Vital Signs Vital signs: Vital Signs Temp 97.5 F L 01/02/20 07:00 Pulse 103 H 01/02/20 07:00 Resp 40 H 01/02/20 07:00 BP 86/55 01/02/20 07:00 Pulse Ox 91 L 01/01/20 23:20 Intake & Output 01/01/20 01/02/20 01/02/20 18:59 06:59 18:59 Intake Total 0 Output Total 1600 1000 Balance -1600 -1000 Intake: Oral 0 Output: Urine 1600 1000 Other: Voiding Method Diaper Diaper Diaper Incontinent Incontinent Incontinent # Voids 1 - Exam GENERAL EXAM: Weak 89-year-old male patient on BiPAP 01/30 in the 100% FiO2. HEAD: Normocephalic/atraumatic. EYES: Normal reaction of pupils, equal size. Conjunctiva pink, sclera white. NOSE: Clear with pink turbinates. THROAT: No erythema or exudates. NECK: No masses, no JVD, no thyroid enlargement, no adenopathy. CHEST: No chest wall deformity. Symmetrical expansion. LUNGS: Equal air entry with minimal wheezing, bilateral scattered rhonchi, left greater than right CVS: Regular rate and rhythm, normal S1 and S2, no gallops, no murmurs, no rubs ABDOMEN: Soft, nontender. No hepatosplenomegaly, normal bowel sounds, no guarding or rigidity. EXTREMITIES: No clubbing, no edema, no cyanosis, 2+ pulses and upper and lower extremities. MUSCULOSKELETAL: Muscle strength and tone normal. SPINE: No scoliosis or deformity SKIN: No rashes CENTRAL NERVOUS SYSTEM: Unable to assess today, tone is normal in all 4 extremities. PSYCHIATRIC: Unable to assess today - Labs CBC & Chem 7: 01/01/20 05:59 01/01/20 05:59 Assessment and Plan Assessment: 1 Acute hypoxic respiratory failure secondary to CoVID 19 pneumonitis 2 Altered mental status and status post fall with no noted fractures 3 Rhabdomyolysis secondary to above 4 Fibrotic changes and subsegmental atelectasis cannot rule out early pneumonia 5 Elevated inflammatory markers secondary to above 6 Hearing disorder 7 Hypertension 8 History of bilateral PE 9 History of depression 10 Hyperlipidemia Plan: The patient was seen and evaluated by Dr. Gonsalez Currently on BiPAP at 100% to maintain O2 saturation in the upper 80s He has been continuing to deteriorate Consider hospice/comfort care I, the cosigning physician, performed a history & physical examination of the patient. Lungs sounds with bilateral end expiratory wheeze, scattered rhonchi. Maintaining O2 saturations in the high 80s and low 90s on BiPAP 12/5 and FiO2 her percent. I discussed the assessment and plan of care with my nurse practitioner, Alessia Tineo. I attest to the above note as dictated by her.
--- NOTE | 2020-01-04 22:23 | CDI ---
Documentation Clarification Form Date: 01/05/2020 From:Rodrick Fields Phone: If you have a question about this query, please contact Carmel Freedman, Exercise Physiologist Certified at [phone] between 8am and 5pm. Admit Date: 12/24/2019 Discharge Date: 01/02/2020 Patient Name: Yusuf Hansen Visit Number: [id number] ATTENTION: The Clinical Documentation Specialists (CDI) and [facility] Coding Staff appreciate your assistance in clarifying documentation. Please respond to the clarification below the line at the bottom and electronically sign. The CDI & [facility] Coding staff will review the response and follow-up if needed. Please note: Queries are made part of the Legal Health Record. If you have any questions, please contact the author of this message via ITS. Dear Prince Castro MD., Chronic kidney disease mentioned in past medical history. History/Risk Factors: Hypertension, Hyperlipidemia Current BUN/CR/GFR : On admission 12/23 55H/1.43H/51 H Treatment: Conservative management Patient is known to have history of hypertension, hyperlipidemia, chronic kidney disease mentioned through out the chart. In order to capture the severity of condition, please clarify the stage of the CKD, if known: CKD Stage 1 (GFR > 90) CKD Stage 2 (GFR 60-89) xx CKD Stage 3 (GFR 30-59) CKD Stage 4 (GFR 15-29) CKD Stage 5 (GFR <15) ESRD Other, please specify Unable to determine MTDD
== END 2020-01-02 15:47 | disposition expired | DRG 871 ==
LOC: EC 18:10 → 4SSUR 21:01
PROVIDERS: ADMIT Internal Medicine Geriatric Medicine; ATTEND Internal Medicine Geriatric Medicine
PROC: 5A09457 Assistance with Respiratory Ventilation, 24-96 Consecutive Hours, Continuous Positive Airway Pressure (ICD-10-PCS; principal; 2019-12-24)
PROC: XW033E5 Introduction of Remdesivir Anti-infective into Peripheral Vein, Percutaneous Approach, New Technology Group 5 (ICD-10-PCS; 2019-12-24)
DX: A41.89 Other specified sepsis (principal); U07.1 COVID-19; J12.89 Other viral pneumonia; G93.41 Metabolic encephalopathy; J96.01 Acute respiratory failure with hypoxia; N17.9 Acute kidney failure, unspecified; J44.0 Chronic obstructive pulmonary disease with (acute) lower respiratory infection; J98.11 Atelectasis; Z66 Do not resuscitate; Z51.5 Encounter for palliative care; D89.839 Cytokine release syndrome, grade unspecified; I95.9 Hypotension, unspecified; K21.9 Gastro-esophageal reflux disease without esophagitis; M19.90 Unspecified osteoarthritis, unspecified site; F32.9 Major depressive disorder, single episode, unspecified; T79.6XXA Traumatic ischemia of muscle, initial encounter; E78.5 Hyperlipidemia, unspecified; H91.90 Unspecified hearing loss, unspecified ear; W18.30XA Fall on same level, unspecified, initial encounter; T14.8XXA Other injury of unspecified body region, initial encounter; N18.30 Chronic kidney disease, stage 3 unspecified; I12.9 Hypertensive chronic kidney disease with stage 1 through stage 4 chronic kidney disease, or unspecified chronic kidney disease; I25.10 Atherosclerotic heart disease of native coronary artery without angina pectoris; I27.20 Pulmonary hypertension, unspecified; N42.9 Disorder of prostate, unspecified; M47.816 Spondylosis without myelopathy or radiculopathy, lumbar region; M48.061 Spinal stenosis, lumbar region without neurogenic claudication; I08.3 Combined rheumatic disorders of mitral, aortic and tricuspid valves; Z79.82 Long term (current) use of aspirin; Z79.02 Long term (current) use of antithrombotics/antiplatelets; Z79.1 Long term (current) use of non-steroidal anti-inflammatories (NSAID); Z79.899 Other long term (current) drug therapy; Z87.891 Personal history of nicotine dependence; Z90.89 Acquired absence of other organs; Z98.890 Other specified postprocedural states; Z86.73 Personal history of transient ischemic attack (TIA), and cerebral infarction without residual deficits; Z83.3 Family history of diabetes mellitus; Z82.49 Family history of ischemic heart disease and other diseases of the circulatory system; Z82.3 Family history of stroke; Z86.711 Personal history of pulmonary embolism; Z86.718 Personal history of other venous thrombosis and embolism; Y92.009 Unspecified place in unspecified non-institutional (private) residence as the place of occurrence of the external cause
CPT/HCPCS: 36415; 70450; 71045; 71046; 71275; 72125; 72128; 72131; 72170; 80053; 81001; 82550; 82553; 82565; 83520; 83615; 84145; 84484; 85025; 85379; 85384; 85610; 85730; 86140; 86850; 86900; 86901; 87040; 93005; 93306; 94640; 94660; 94760; 96361; 96374; 96375; 99285